=== PATIENT | male | born 1995 | race Caucasian/White ===

== ENCOUNTER 2019-12-16 17:07 | Observation (INO) | payer OTHER, SELFPAY ==
[2019-12-16 17:40] VITALS: BP 154/104; PULSE 126; PULSE 129; RESP 12; TEMP 37.3; O2SAT 98
--- NOTE | 2019-12-16 17:54 | ECG_ITS ---
Measurements Intervals [place] Rate: 129 P: 72 KS: 132 QRS: 77 QRSD: 94 T: 60 QT: 334 QTc: 489 Interpretive Statements SINUS TACHYCARDIA INCOMPLETE RIGHT BUNDLE BRANCH BLOCK MINIMAL Q WAVES- ANTEROLAT/INF LEADS NONSPECIFIC ST & T-WAVE ABNORMALITY- ANT/INF LEADS ABNORMAL ECG Electronically Signed On 12-16-2019 19:50:53 CDT by Stevie Morrison D.O.
[2019-12-16 18:12] LABS: Basophils Absolute Auto 0.03 K/mm3 (0.00-0.10); Basophils Percent Auto 0.4 % (0.0-1.0); Hematocrit 46.8 % (40.0-54.0); Hemoglobin 16.4 g/dL (14.0-18.0); Immature Granulocyte Absolute 0.03 K/mm3 (0.00-0.00); Immature Granulocyte Percent A 0.4 % (0.0-0.0); Lymphocytes Absolute Auto 1.13 K/mm3 (1.10-4.50); Lymphocytes Percent Auto 13.8 % (18.0-42.0); Mean Corpuscular Hemoglobin 29.2 pg (27.0-31.0); Mean Corpuscular Volume 83.3 fL (78.0-102.0); Mean Platelet Volume 10.3 fl (8.7-11.0); Monocytes Absolute Auto 0.46 K/mm3 (0.10-0.90); Monocytes Percent Auto 5.6 % (2.0-11.0); Neutrophils Absolute Auto 6.6 K/mm3 (1.7-7.2); Neutrophils Percent Auto 79.8 % (50.0-70.0); Platelet Count Result 238 K/mm3 (150-420); Red Blood Count 5.62 M/mm3 (4.70-6.10); Red Cell Distribution Width 11.9 % (11.6-14.4); White Blood Count 8.2 K/mm3 (4.8-10.8)
--- NOTE | 2019-12-16 18:26 | ED.GENADULT ---
HPI - General Adult General Chief complaint: Unspecified Stated complaint: Took pills History of Present Illness HPI narrative: This 24 y.o. has schizophrenia and depression. His mother states he was restless this AM, walking in and out of rooms in the house. Today he has also been much more more quiet and clammed up than usual.He kept his eyes closed when his mother conversed with him, which is unusual. Arpound 3:30 PM today, with repeated questioning of what was wrong, he told his mother he had taken 7 additional pills today, evidently with the intent of hurting himself. She states in the past month he has been erratically taking his medicine because he doesn't need to take them anymore. He did not cooperate with taking his meds in front of her. [Bottle count of meds indicate he has taken only one dose over the past 17 days]. He was in a psych hospital 07/2018 with depression and suicidal ideation. He has used recreational drugs in the past, but not recently. . Related Data Home Medications Medication Instructions Recorded Confirmed clonidine HCl 0.1 mg PO HS 05/20/19 12/16/19 risperidone 2 mg PO HS 05/20/19 12/16/19 sertraline 150 mg PO DAILY 05/20/19 12/16/19 rosuvastatin 5 mg PO DAILY 12/16/19 12/16/19 Allergies Allergy/AdvReac Type Severity Reaction Status Date / Time amoxicillin Allergy Rash Verified 05/20/19 21:58 Review of Systems Review of Systems: Narrative: Pt indicates with a subtle nod of his head. No verbal answers. Constitutional: Constitutional: Denies chills and Denies fever(s) Eyes: Eyes: Denies change in vision ENT: Denies dizziness and Denies sore throat Cardiovascular: Cardiovascular: Denies chest pain Respiratory: Respiratory: Denies dyspnea Gastrointestinal: Gastrointestinal: Denies abdominal pain, Reports diarrhea (did not go into detail), Denies nausea and Denies vomiting Genitourinary: Genitourinary: Denies dysuria Musculoskeletal: Musculoskeletal: Denies myalgias Integumentary/Breasts: Skin/Breast: Denies rash [facility] Social History Social History (Updated 12/16/19 @ 19:03 by Amrit Talamantes MD) Social History: Friend moved away 1 month ago. Has been staying home . Smoking status: Unknown if ever smoked Alcohol intake: unknown Substance use: unknown Gender identity (if verbalized by the patient): Male Exam Const: Other: Pt. walked in with his mother, head down, with normal flow of body movement. He did not answer questions but at one point whispered something to his mother. HENMT: Head: normal to inspection and atraumatic Face and sinus: normal facial exam Mouth: Yes Normal oral and palatal mucosa present and Yes other (upper front teeth are decayed at their bases. ) Eyes: General: appearance normal, both eyes and all related structures Pupils: Equal, round and reactive pupils present EOM: EOMs intact bilaterally Neck: Neck: no lymphadenopathy noted Thyroid: thyroid normal Chest: Chest palpation & inspection: normal inspection of the chest Resp: Effort & Inspection: normal respiratory effort, not labored and not tachypneic Auscultation: clear to auscultation bilaterally Cardio: Rate: regular rate and tachycardic Rhythm: regular rhythm GI: GI Palp: Yes Soft to palpation and No Tenderness to palpation present (GI) Back/Spine/Pelvis: Back: no CVA tenderness Skin: General skin exam: normal color Rashes: no rashes Other: No remarkable scars. No tattoos seen. No arm track salazar. Neuro: Other: Pt. does some requested actions, e.g. stand up, but not others pull your pants down, put your penis in the urinal and uriate . No words spoken. Extrem: General: no clubbing, cyanosis or edema Psych: Appearance: well kempt Affect: No Anxious affect present Attitude: cooperative Thought content: Yes other (unobtainable. ) Course Vital Signs Vital signs: Vital Signs Temperature 37.3 C 12/16/19 17:40 Pulse Rate 129 H 12/16/19 17:40
[2019-12-16 18:32] LABS: Alanine Aminotransferase 33 U/L (16-63); Albumin Level 4.7 g/dL (3.4-5.0); Alkaline Phosphatase 203 U/L (46-116); Anion Gap 14.1 mmol/L (7-16); Aspartate Amino Transferase 24 U/L (15-37); Bilirubin,Total 0.5 mg/dL (0.00-1.00); Blood Urea Nitrogen 6 mg/dL (7-18); Calcium 9.2 mg/dL (8.5-10.1); Carbon Dioxide 25 mmol/L (21-32); Chloride 104 mmol/L (98-108); Estimated CRCL calculation 96 ml/min; Estimated Glomerular Filt Rate > 60; Glucose 122 mg/dL (70-99); Osmolality Calculated 288 mOsm/kg (285-295); Potassium 3.1 mmol/L (3.5-5.1); Salicylate 0.3 mg/dL (2.8-20.0); Sodium 140 mmol/L (136-145); Total Protein 7.7 g/dL (6.4-8.2)
[2019-12-16 18:33] LABS: Thyroid Stimulating Hormone 1.66 uIU/mL (0.36-3.74)
[2019-12-16 18:34] LABS: Acetaminophen 0 ug/mL (10-30); Ethanol < 3 mg/dL (0-6)
--- NOTE | 2019-12-16 18:45 | PC.NURSE ---
RN CONTACTED POISON CONTROL AT THIS TIME.
--- NOTE | 2019-12-16 19:00 | PC.NURSE ---
MOTHER RETURNS TO ED WITH PTS MEDICATIONS. THERE ARE NO MISSING PRESCRIBED MEDICATIONS.
[2019-12-16] MEDS: SODIUM CHLORIDE 0.9% IV 1,000 ML 999 ML IV CONT (19:10)
[2019-12-16 19:13] LABS: Creatine Kinase 75 U/L (39-308); Magnesium 1.9 mg/dL (1.8-2.4)
[2019-12-16 19:16] LABS: Lactic Acid 2.3 mmol/L (0.4-2.0)
--- NOTE | 2019-12-16 19:25 | PC.NURSE ---
REFINERY TECHNICIAN CONTACTED EARL, CHARGE NURSE, TO INFORM HER OF PTS ANTICIPATED PLAN OF CARE. ERP STATES THAT PT WILL MOST LIKELY BE GOING UPSTAIRS AN OBSERVATION PT AND WILL NEED A BEDSIDE SAWMILL EQUIPMENT OPERATOR. EARL INFORMED TO GIVE HER AMPLE TIME TO SECURE A SITTER.
[2019-12-16] MEDS: MAGNESIUM SULF 2 GM/WATER 50ML 2 GM/50 ML BAG IVPB (19:39)
[2019-12-16] MEDS: SODIUM CHLORIDE 0.9% IV 500 ML 999 ML IV CONT (20:15)
[2019-12-16 20:40] VITALS: BP 142/86; PULSE 105; RESP 15; O2SAT 97
[2019-12-16 20:50] VITALS: BP 141/91; PULSE 102; RESP 16; TEMP 36.7; O2SAT 97
--- NOTE | 2019-12-16 20:51 | PC.NURSE ---
DURING TELEPHONE REPORT TO EARL BOWERS, SINGE MACHINE OPERATOR EXPLAINED THAT URINE SAMPLE STILL NEEDED TO BE COLLECTED ANSD SENT TO LAB. RN ALSO EXPLAINED THAT 20meq K WOULD NEED TO STOP TIME DOCUMENTED AND SECOND BAG STARTED.
--- NOTE | 2019-12-16 20:59 | PC.NURSE ---
POISON CONTROL CALLED RN TO RECEIVE UPDATE. LAB RESULTS PROVIDED AND INFORMATION REGARDING ADMISSION PROVIDED. POISON CONTROL QA SOFTWARE TEST ENGINEER TO CONTACT 2ND FLOOR MED-SURG FOR NEXT UPDATE.
--- NOTE | 2019-12-16 21:00 | ADMGEN ---
This patient, Luis Armando Harmon, was admitted to 2nd Floor Room 206-1. Patient oriented to hospital policies and general routines including ID bracelet, bed and alarms, visiting hours, pain management, procedures, bathroom and other care routines, personal items, smoking policy, room service/diet, and visiting hours. Information on how to activate the Rapid Response Team has been discussed. Patient are encouraged to report perceived risks to care and to ask questions if they do not understand what they are told or what they should do.
--- NOTE | 2019-12-16 21:00 | PC.NURSE ---
Patient settled in room/bed. VS taken. Assisted patient in finding tv channel he wanted and then cord taken from room. Patient non-verbal. Barely shakes/nods his head. No distress noted.
[2019-12-16] MEDS: cloNIDine HCL 0.1 MG TABLET PO (21:27)
[2019-12-16] MEDS: risperiDONE 1 MG TABLET 2 MG PO (21:27)
--- NOTE | 2019-12-16 22:20 | PC.NURSE ---
Patient appears to be sleeping by the rise and fall of his chest. Respirations even and unlabored. No distress noted.
--- NOTE | 2019-12-16 23:30 | PC.NURSE ---
Patient appears to be sleeping. No signs of distress are observed.
[2019-12-17] VITALS: BP 114/67; PULSE 76; PULSE 85; RESP 16; TEMP 36.3; O2SAT 98
--- NOTE | 2019-12-17 00:35 | PC.NURSE ---
Patient awakens to voice. No complaints or need for assistance at this time. Vital signs obtained,
--- NOTE | 2019-12-17 01:15 | PC.NURSE ---
Patient appears to be sleeping. No signs of distress are observed.
--- NOTE | 2019-12-17 02:13 | PC.NURSE ---
Patient in bed sleeping. No signs of pain or distress are observed.
[2019-12-17 02:14] VITALS: PULSE 56
--- NOTE | 2019-12-17 03:01 | PC.NURSE ---
Patient sleeping. No signs of distress are observed. Normal sinus rhythm to sinus desiree on tele with rate in the high 50s to low 60s
[2019-12-17 03:02] VITALS: BMI 20.1
[2019-12-17 03:03] VITALS: PULSE 56
--- NOTE | 2019-12-17 03:49 | PC.NURSE ---
Patient sleeping. No signs of distress are observed.
[2019-12-17 04:00] VITALS: BP 100/58; PULSE 63; PULSE 65; RESP 16; TEMP 36.2; O2SAT 99
[2019-12-17 05:23] LABS: Anion Gap 9.7 mmol/L (7-16); Blood Urea Nitrogen 6 mg/dL (7-18); Calcium 8.8 mg/dL (8.5-10.1); Carbon Dioxide 29 mmol/L (21-32); Chloride 110 mmol/L (98-108); Estimated CRCL calculation 124 ml/min; Estimated Glomerular Filt Rate > 60; Glucose 102 mg/dL (70-99); Magnesium 2.4 mg/dL (1.8-2.4); Osmolality Calculated 297 mOsm/kg (285-295); Potassium 3.7 mmol/L (3.5-5.1); Sodium 145 mmol/L (136-145)
--- NOTE | 2019-12-17 07:18 | ED.GENADULT ---
HPI - General Adult General Chief complaint: Unspecified Stated complaint: Took pills Related Data Home Medications Medication Instructions Recorded Confirmed clonidine HCl 0.1 mg PO HS 05/20/19 12/16/19 risperidone 2 mg PO HS 05/20/19 12/16/19 sertraline 150 mg PO DAILY 05/20/19 12/16/19 rosuvastatin 5 mg PO DAILY 12/16/19 12/16/19 Allergies Allergy/AdvReac Type Severity Reaction Status Date / Time amoxicillin Allergy Rash Verified 05/20/19 21:58 [facility] Social History Social History (Updated 12/16/19 @ 19:03 by Amrit Talamantes MD) Social History: Friend moved away 1 month ago. Has been staying home . Smoking status: Unknown if ever smoked Alcohol intake: unknown Substance use: unknown Gender identity (if verbalized by the patient): Male Course Vital Signs Vital signs: Vital Signs Temperature 37.3 C 12/16/19 17:40 Pulse Rate 129 H 12/16/19 17:40 Respiratory Rate 12 12/16/19 17:40 Blood Pressure 154/104 H 12/16/19 17:40 Pulse Oximetry 98 12/16/19 17:40 Temperature 36.2 C L 12/17/19 04:00 Pulse Rate 63 12/17/19 04:00 Respiratory Rate 16 12/17/19 04:00 Blood Pressure 100/58 L 12/17/19 04:00 Pulse Oximetry 99 12/17/19 04:00 Medical Decision Making Vital Signs Vital Signs: Vital Signs Temperature 37.3 C 12/16/19 17:40 Pulse Rate 129 H 12/16/19 17:40 Respiratory Rate 12 12/16/19 17:40 Blood Pressure 154/104 H 12/16/19 17:40 Pulse Oximetry 98 12/16/19 17:40 Temperature 36.2 C L 12/17/19 04:00 Pulse Rate 63 12/17/19 04:00 Respiratory Rate 16 12/17/19 04:00 Blood Pressure 100/58 L 12/17/19 04:00 Pulse Oximetry 99 12/17/19 04:00 Lab Data Result diagrams: 12/16/19 18:06 12/17/19 04:55 Labs: Lab Results 12/16/19 12/16/19 12/16/19 Range/Units 18:06 18:06 18:06 WBC 8.2 (4.8-10.8) K/mm3 RBC 5.62 (4.70-6.10) M/mm3 Hgb 16.4 (14.0-18.0) g/dL Hct 46.8 (40.0-54.0) % MCV 83.3 (78.0-102.0) fL MCH 29.2 (27.0-31.0) pg MCHC 35.0 (32.0-36.0) g/dL RDW 11.9 (11.6-14.4) % Plt Count 238 (150-420) K/mm3 MPV 10.3 (8.7-11.0) fl Immature Gran % (Auto) 0.4 H (0.0-0.0) % Neut % (Auto) 79.8 H (50.0-70.0) % Lymph % (Auto) 13.8 L (18.0-42.0) % Bureau % (Auto) 5.6 (2.0-11.0) % Eos % (Auto) 0.0 L (1.0-6.0) % Baso % (Auto) 0.4 (0.0-1.0) % Lymph # (Auto) 1.13 (1.10-4.50) K/mm3 Bureau # (Auto) 0.46 (0.10-0.90) K/mm3 Eos # (Auto) 0.00 L (0.02-0.50) K/mm3 Baso # (Auto) 0.03 (0.00-0.10) K/mm3 Abs Immat Gran (auto) 0.03 H (0.00-0.00) K/mm3 Absolute Neuts (auto) 6.6 (1.7-7.2) K/mm3 Absolute Nucleated RBC 0.00 (0.00-0.00) K/mm3 Nucleated RBC % 0.0 (0-0.0) % Sodium 140 (136-145) mmol/L Potassium 3.1 L (3.5-5.1) mmol/L Chloride 104 (98-108) mmol/L Carbon Dioxide 25 (21-32) mmol/L Anion Gap 14.1 (7-16) mmol/L BUN 6 L (7-18) mg/dL Creatinine 0.94 (0.70-1.30) mg/dL Estim Creat Clear Calc 96 ml/min Estimated GFR > 60 (59 - ) Glucose 122 H (70-99) mg/dL Calculated Osmolality 288 (285-295) mOsm/kg Lactic Acid (0.4-2.0) mmol/L Calcium 9.2 (8.5-10.1) mg/dL Magnesium (1.8-2.4) mg/dL Total Bilirubin 0.5 (0.00-1.00) mg/dL AST 24 (15-37) U/L ALT 33 (16-63) U/L Alkaline Phosphatase 203 H (46-116) U/L Total Creatine Kinase (39-308) U/L Total Protein 7.7 (6.4-8.2) g/dL Albumin 4.7 (3.4-5.0) g/dL TSH 1.66 (0.36-3.74) uIU/mL Salicylates 0.3 L (2.8-20.0) mg/dL Acetaminophen 0 L (10-30) ug/mL Ethyl Alcohol < 3 (0-6) mg/dL 12/16/19 12/16/19 Range/Units 18:06 18:06 WBC (4.8-10.8) K/mm3 RBC (4.70-6.10) M/mm3 Hgb (14.0-18.0) g/dL Hct (40.0-54.0) % MCV (78.0-102.0) fL MCH (27.0-31.0) pg MCHC (32.0-36.0) g/dL RDW (11.6-14.4) % Plt Count (150-420) K/mm3 MPV (8
--- NOTE | 2019-12-17 07:49 | PM.IMHP ---
H&P: HPI History of Present Illness Chief complaint: Took pills Narrative: Luis Armando Harmon is a 24 year old male admitted yesterday when his mother, Erin, brought him to the ER. She felt that he was not calm at home, pacing, and would sit down, that he could not make decisions, that he was restless, and was unable to focus. She stated this was unlike him. When asked if the patient had any stressful events in the last month or 2, His mother also informed me that Luis Armando was very close to a friend's father who recently . When I asked his mother if she is assisted him with medications and appointments, she stated he is 24 years old he should be able to handle his medications all on his own . I contacted [facility] counselors to complete an intake evaluation on the patient this morning. I did educate and inform his mother that due to his multiple diagnoses of serious mental health disorders, that he may need assistance with medication administration as well as maintaining good health for the rest of his life. Luis Armando has been living with his mother since February 2019 when he moved in with her. Luis Armando did tell the nursing staff that he liked living there and felt safe. Luis Armando has a history of ADHD, major depressive syndrome, and schizophrenia. Bowen was baseline also includes chronic mentally challenged symptoms since , he is at times nonverbal or very delayed in his responses to questions. He was in a [facility] 07/2018 with depression and suicidal ideation. He has used recreational drugs in the past, but not recently. I could find no evidence that Luis Armando took any recreational drugs or tried to overdose on any medications. His toxicity screen was completely negative as well as his Tylenol, Salicylates , ethyl alcohol screens. Luis Armando did admit to me that he occasionally would forget to take his medications at scheduled times. He denied that he wanted to hurt himself, denied that he was suicidal, and denied that he had suicidal thoughts. The patient's heart rate improved significantly from sinus tach with a heart rate of 120s, to sinus rhythm and the heart rate in the 60s after receiving 2 L of IV fluids. He was likely very dehydrated at home. he was also given potassium supplementation and his potassium normalized from 3.1 up to 3.7. He was given magnesium supplementation and his most recent magnesium was 2.4. His alkaline phosphatase also improved from 203 to 163, after the IV fluids. TSH wnl at 1.66. Luis Armando had been seen a counselor or psychologist in the past, but his mother stated that he had been released from those visits since he was doing so well. I have advised to the patient and his mother that he reschedule and continue to see a counselor and/or psychologist every 2 weeks or at least every month for his lifetime to keep his mental health issues controlled and reduce hospitalizations. Luis Armando has been seeing Dr. Brittany Nation, a psychiatrist affiliated with [facility], and she has been ordering his medications. I have advised him to follow-up with an appointment to see his psychiatrist as well as his primary care physician in 1-2 weeks. The patient was safely able to ambulate throughout his hospital room, to his bathroom, as well as out into the hallway at least 50 ft. No sign or symptoms of tardive dyskinesia concerns, neurological checks have been with in normal limits, and no hallucinations or psychosis noted. Review of Systems Review of Systems: All systems reviewed & are unremarkable except as noted in HPI and below Constitutional: Constitutional: Reports as per HPI, Denies chills and Denies fever(s) Eyes: Eyes: Reports as per HPI and Denies change in vision ENT: Reports as per HPI, Reports Normal hearing present, Denies dizziness and Denies sore throat Cardiovascular: Cardiovascular: Reports as per HPI, Denies chest pain and Denies dyspnea Respiratory: Respiratory: Reports as per HPI, Denies cough,
[2019-12-17 08:00] VITALS: BP 127/74; PULSE 68; RESP 18; TEMP 36.2; O2SAT 98
[2019-12-17 08:19] LABS: Alanine Aminotransferase 26 U/L (16-63); Albumin Level 3.7 g/dL (3.4-5.0); Alkaline Phosphatase 163 U/L (46-116); Aspartate Amino Transferase 18 U/L (15-37); Bilirubin Direct 0.2 mg/dL (0-0.2); Bilirubin,Total 0.8 mg/dL (0.00-1.00)
--- NOTE | 2019-12-17 09:00 | PC.NURSE ---
darrel colón called and waiting for call back stefanie
[2019-12-17 09:08] LABS: Amphetamine Screen Urine Negative (Negative); Barbiturate Screen Urine Negative (Negative); Benzodiazepines Screen Urine Negative (Negative); Cannabinoid Screen Urine Negative (Negative); Cocaine Screen Urine Negative (Negative); Methadone Screen Urine Negative (Negative); Opiate Screen Urine Negative (Negative); Phencyclidine Screen Urine Negative (Negative)
[2019-12-17] MEDS: ROSUVASTATIN 5 MG TABLET PO (09:37)
[2019-12-17] MEDS: SERTRALINE HCL 50 MG TABLET 150 MG PO (09:37)
[2019-12-17 09:55] LABS: Salicylate < 0.3 mg/dL (2.8-20.0)
[2019-12-17 09:56] LABS: Acetaminophen 0 ug/mL (10-30); Ethanol < 3 mg/dL (0-6)
[2019-12-17 12:00] VITALS: BP 122/66; PULSE 86; RESP 18; TEMP 36.4; O2SAT 98
[2019-12-17] MEDS: PANTOPRAZOLE 40 MG TABLET PO (13:03)
[2019-12-17] MEDS: CALCIUM CARBONATE (TUMS) 500 MG (200 MG ELEMENTAL) PO (13:05)
[2019-12-17] MEDS: ACETAMINOPHEN 500 MG TABLET 1000 MG PO (13:06)
--- NOTE | 2019-12-17 13:45 | PM.DS ---
DS: Discharge Diagnosis Discharge Diagnosis (1) Schizophrenia: Code(s): F20.9 - Schizophrenia, unspecified Status: Acute Assessment and Plan: inform his mother that due to his multiple diagnoses of serious mental health disorders, that he may need assistance with medication administration as well as maintaining good health for the rest of his life. history of ADHD, major depressive syndrome, and schizophrenia. TSH wnl at 1.66. continued clonidine, risperidone, sertraline dosing. seeing Dr. Brittany Nation, a psychiatrist affiliated with [facility], and she has been ordering his medications. advised him to follow-up with an appointment to see his psychiatrist as well as his primary care physician in 1-2 weeks. No sign or symptoms of tardive dyskinesia concerns, neurological checks have been with in normal limits, and no hallucinations or psychosis noted. Rehydrate patient, monitor for patient to adequately eat and drink fluids, monitor for patient to take his medications as scheduled discharge patient if he is communicating with others and able to safely ambulate, as well as is not a suicidal risk to himself or dangerous risk to others. (2) Depression: Code(s): F32.9 - Major depressive disorder, single episode, unspecified Status: Acute Assessment and Plan: he may need assistance with medication administration as well as maintaining good health for the rest of his life. history of ADHD, major depressive syndrome, and schizophrenia. Bowen heck baseline also includes chronic mentally challenged symptoms since , he is at times nonverbal or very delayed in his responses to questions. continued clonidine, risperidone, sertraline dosing. I could find no evidence that Luis Armando took any recreational drugs or tried to overdose on any medications. toxicity screen was completely negative as well as his Tylenol, Salicylates , ethyl alcohol screens. advised him to follow-up with an appointment to see his psychiatrist as well as his primary care physician in 1-2 weeks (3) Drug taken at lower dose than recommended: Code(s): Z91.14 - Patient's other noncompliance with medication regimen Status: Acute Assessment and Plan: See ED note. when pills counted, patient had not been taking his [facility] medications at home for the last 2-3 weeks. patient had any stressful events in the last month or 2, His mother also informed me that Luis Armando was very close to a friend's father who recently . contacted [facility] counselors to complete an intake evaluation on the patient this morning. inform his mother that due to his multiple diagnoses of serious mental health disorders, that he may need assistance with medication administration as well as maintaining good health for the rest of his life. history of ADHD, major depressive syndrome, and schizophrenia. baseline also includes chronic mentally challenged symptoms since , he is at times nonverbal or very delayed in his responses to questions. continued clonidine, risperidone, sertraline dosing. toxicity screen was completely negative as well as his Tylenol, Salicylates , ethyl alcohol screens. advised to the patient and his mother that he reschedule and continue to see a counselor and/or psychologist every 2 weeks or at least every month for his lifetime seeing Dr. Brittany Nation, a psychiatrist affiliated with [facility], and she has been ordering his medications. advised him to follow-up with an appointment to see his psychiatrist as well as his primary care physician in 1-2 weeks. No sign or symptoms of tardive dyskinesia concerns, neurological checks have been with in normal limits, and no hallucinations or psychosis noted. Rehydrate patient, monitor for patient to adequately eat and drink fluids, monitor for patient to take his medications as scheduled discharge patient if he is communicating with others and able to safely ambulate, as well
== END 2019-12-17 14:55 | disposition home or self-care (01) ==
LOC: CHSED 17:10 → CHS2ND 20:30
PROVIDERS: Nurse Practitioner; Admitting Provider Family Medicine; Emergency Provider Family Medicine; PCP Family Medicine; Visit Provider Family Medicine
DX: F20.9 Schizophrenia, unspecified (principal); F32.9 Major depressive disorder, single episode, unspecified; R00.0 Tachycardia, unspecified; F90.9 Attention-deficit hyperactivity disorder, unspecified type; Z91.14 Patient's other noncompliance with medication regimen
CPT/HCPCS: 36415; 80048; 80053; 80076; 80307; 82550; 83605; 83735; 84443; 85025; 93005; 96365; 96368; 96375; 99283; 99285; A9270; G0378; G0379; J2060; J3475; J3480; J7030; J7040

== ENCOUNTER 2019-12-28 23:42 | Emergency (ER) | payer OTHER, SELFPAY ==
[2019-12-28 23:45] VITALS: BP 130/82; PULSE 72; RESP 22; TEMP 37.1; O2SAT 98
--- NOTE | 2019-12-28 23:46 | ED.GENADULT ---
HPI - General Adult General Chief complaint: Abdominal Pain Stated complaint: phsyc Time Seen by Provider: 12/28/19 23:44 Source: patient Mode of arrival: ambulatory Limitations: other (Schitzophrenia, ADHD, possible other mood disorder) History of Present Illness HPI narrative: Luis Armando is a 24M with a PMH of schitzophrenia, ADHD, and high cholesterol that presented to the ED with his mother for concerns of abdominal pain, nausea and diarrhea as well as acting different. He reportedly just came back from a psychiatric facility on Thursday and has had some belly pain. Today he had decreased appetite and only ate some broth and tortellini soup. He then started reporting some nausea and epigastric pain to his mother. He later reported 3 episodes of non-bloody diarrhea to me. Further history could not be gathered as he would not stop walking around the department and trying to smear various things on the wall (hand mechanical specialist, soda, gloves, etc). He continually tried to pace back and fourth. Related Data Home Medications Medication Instructions Recorded Confirmed clonidine HCl 0.1 mg PO HS 05/20/19 12/29/19 risperidone 2 mg PO HS 05/20/19 12/29/19 sertraline 150 mg PO DAILY 05/20/19 12/29/19 rosuvastatin 5 mg PO HS 12/16/19 12/29/19 Allergies Allergy/AdvReac Type Severity Reaction Status Date / Time amoxicillin Allergy Rash Verified 05/20/19 21:58 Review of Systems Review of Systems: ROS unobtainable: Yes unobtainable due to mental status [facility] Past Medical History Medical History Depression Social History Social History Social History: Friend moved away 1 month ago. Has been staying home . Smoking status: Unknown if ever smoked Alcohol intake: unknown Substance use: unknown Gender identity (if verbalized by the patient): Male Sexual Orientation (if Verbalized by the Patient): Straight or Heterosexual Exam Const: General: no acute distress and alert Other: Will not answer orientation questions. No signs of distress. HENMT: Other: Normocephalic, atraumatic Eyes: Conjunctivae: conjunctivae normal Pupils: Equal, round and reactive pupils present Neck: Neck: normal visual inspection Chest: Chest palpation & inspection: normal inspection of the chest Resp: Effort & Inspection: normal respiratory effort Other: No cough, tachypnea, or increased WOB Cardio: Rate: regular rate Rhythm: regular rhythm Heart sounds: no murmurs GI: GI Palp: Yes Soft to palpation and No Tenderness to palpation present (GI) Skin: General skin exam: normal color Rashes: no rashes Neuro: General: patient oriented x3 and moves all extremities Extrem: General: normal to inspection Psych: Appearance: disheveled Mental Status: mental status grossly abnormal Affect: Anxious affect present Attitude: not cooperative Course Course Emergency Course: Luis Armando was seen and evaluated. labs were ordered as below. Further history reveals that he is out of his risperdone. I asked him if he would like something similar and he said yes so Zyprexa was ordered. After the zyprexa he did sit more and seem more calm. Labs showed slight leukocytosis and mild hypokalemia. These along with his physical exam are consistent with viral gastroenteritits. We discussed the importance of adequate hydration and he was discharged. Medical Decision Making Lab Data Result diagrams: 12/28/19 23:51 12/28/19 23:51 Labs: Lab Results 12/28/19 12/28/19 Range/Units 23:51 23:51 WBC 12.4 H (4.8-10.8) K/mm3 RBC 5.82 (4.70-6.10) M/mm3 Hgb 16.8 (14.0-18.0) g/dL Hct 48.8 (40.0-54.0) % MCV 83.8 (78.0-102.0) fL MCH 28.9 (27.0-31.0) pg MCHC 34.4 (32.0-36.0) g/dL RDW 12.1 (11.6-14.4) % Plt Count 348 (150-420) K/mm3 MPV 10.2 (8.7-11.0) fl Immature Gran % (Auto) 0.3 H (0.
[2019-12-28] MEDS: SODIUM CHLORIDE 0.9% IV 1,000 ML 500 ML IV CONT (23:58)
--- NOTE | 2019-12-29 | PC.NURSE ---
gave mom & patient a soda patient threw soda on floor. patient appears autistic, giving 100ML bolus every 15min
[2019-12-29 00:05] LABS: Basophils Absolute Auto 0.07 K/mm3 (0.00-0.10); Basophils Percent Auto 0.6 % (0.0-1.0); Eosinophils Absolute Auto 0.07 K/mm3 (0.02-0.50); Eosinophils Percent Auto 0.6 % (1.0-6.0); Hematocrit 48.8 % (40.0-54.0); Hemoglobin 16.8 g/dL (14.0-18.0); Immature Granulocyte Absolute 0.04 K/mm3 (0.00-0.00); Immature Granulocyte Percent A 0.3 % (0.0-0.0); Lymphocytes Absolute Auto 3.39 K/mm3 (1.10-4.50); Lymphocytes Percent Auto 27.4 % (18.0-42.0); Mean Corpuscular HGB Conc 34.4 g/dL (32.0-36.0); Mean Corpuscular Hemoglobin 28.9 pg (27.0-31.0); Mean Corpuscular Volume 83.8 fL (78.0-102.0); Mean Platelet Volume 10.2 fl (8.7-11.0); Monocytes Percent Auto 7.3 % (2.0-11.0); Neutrophils Absolute Auto 7.9 K/mm3 (1.7-7.2); Neutrophils Percent Auto 63.8 % (50.0-70.0); Platelet Count Result 348 K/mm3 (150-420); Red Blood Count 5.82 M/mm3 (4.70-6.10); Red Cell Distribution Width 12.1 % (11.6-14.4); White Blood Count 12.4 K/mm3 (4.8-10.8)
[2019-12-29 00:31] LABS: Alanine Aminotransferase 35 U/L (16-63); Albumin Level 4.8 g/dL (3.4-5.0); Alkaline Phosphatase 173 U/L (46-116); Anion Gap 14.2 mmol/L (7-16); Aspartate Amino Transferase 27 U/L (15-37); Bilirubin,Total 0.7 mg/dL (0.00-1.00); Blood Urea Nitrogen 11 mg/dL (7-18); Calcium 8.9 mg/dL (8.5-10.1); Carbon Dioxide 26 mmol/L (21-32); Chloride 100 mmol/L (98-108); Estimated Glomerular Filt Rate > 60; Glucose 119 mg/dL (70-99); Osmolality Calculated 284 mOsm/kg (285-295); Potassium 3.2 mmol/L (3.5-5.1); Sodium 137 mmol/L (136-145); Thyroid Stimulating Hormone 2.57 uIU/mL (0.36-3.74); Total Protein 7.7 g/dL (6.4-8.2)
[2019-12-29 00:34] LABS: Salicylate < 0.3 mg/dL (2.8-20.0)
[2019-12-29 00:35] LABS: Acetaminophen 0 ug/mL (10-30); Ethanol < 3 mg/dL (0-6)
--- NOTE | 2019-12-29 00:41 | PC.NURSE ---
manual bolus complete, total 500ml given. with patient reviewing labs
[2019-12-29 00:50] VITALS: BP 130/70; PULSE 80; RESP 18; TEMP 36.6; O2SAT 98
--- NOTE | 2019-12-29 00:52 | PC.NURSE ---
unable to collect urine
--- NOTE | 2020-01-26 06:03 | ED.GENADULT ---
HPI - General Adult General Chief complaint: Abdominal Pain Stated complaint: phsyc Time Seen by Provider: 12/28/19 23:44 Source: patient Mode of arrival: EMS Limitations: no limitations and other (Schitzophrenia, ADHD, possible other mood disorder) History of Present Illness HPI narrative: Luis Armando is a 24M with a PMH of schitzophrenia, ADHD, and high cholesterol that presented to the ED by EMS after he was found walking in the the middle of the street. He was at an inpatient psych facility for 5 days last month and had been acting himself. However, yesterday he started refusing to eat and started to become more agitated. Early this morning he left the house barefoot and was found 2 hours later in the middle of the street. He is virtually nonverbal and will not answer questions. Related Data Home Medications Medication Instructions Recorded Confirmed clonidine HCl 0.1 mg PO HS 05/20/19 12/29/19 risperidone 2 mg PO HS 05/20/19 12/29/19 sertraline 150 mg PO DAILY 05/20/19 12/29/19 rosuvastatin 5 mg PO HS 12/16/19 12/29/19 Allergies Allergy/AdvReac Type Severity Reaction Status Date / Time amoxicillin Allergy Rash Verified 05/20/19 21:58 Review of Systems Review of Systems: ROS unobtainable: Yes unobtainable due to mental status [facility] Past Medical History Medical History Depression Social History Social History Social History: Friend moved away 1 month ago. Has been staying home . Smoking status: Unknown if ever smoked Alcohol intake: unknown Substance use: unknown Gender identity (if verbalized by the patient): Male Exam Const: General: no acute distress and confusion HENMT: Head: normal to inspection Other: normocephalic, atraumatic Eyes: Conjunctivae: conjunctivae normal Pupils: Equal, round and reactive pupils present Neck: Neck: normal visual inspection Chest: Chest palpation & inspection: normal inspection of the chest Resp: Effort & Inspection: normal respiratory effort, not labored and not tachypneic Auscultation: clear to auscultation bilaterally Cardio: Rate: regular rate Rhythm: regular rhythm Heart sounds: no murmurs GI: GI Palp: Yes Soft to palpation, No Tenderness to palpation present (GI) and No Guarding due to palpation present (GI) Back/Spine/Pelvis: Back: no CVA tenderness Skin: General skin exam: normal color Rashes: no rashes Wounds: no wounds Neuro: General: moves all extremities Other: Virtually non verbal but when asked does this hurt he will reply no Extrem: General: normal to inspection Psych: Appearance: disheveled Affect: Anxious affect present Thought content: Yes other (non-verbal ) Course Course Emergency Course: Luis Armando was seen and evaluated. As soon as he came of Vital Signs Vital signs: Vital Signs Temperature 98.7 F 12/28/19 23:45 Pulse Rate 72 12/28/19 23:45 Respiratory Rate 22 H 12/28/19 23:45 Blood Pressure 130/82 12/28/19 23:45 Pulse Oximetry 98 12/28/19 23:45 Temperature 97.8 F 12/29/19 00:50 Pulse Rate 80 12/29/19 00:50 Respiratory Rate 18 12/29/19 00:50 Blood Pressure 130/70 12/29/19 00:50 Pulse Oximetry 98 12/29/19 00:50 Medical Decision Making Vital Signs Vital Signs: Vital Signs Temperature 98.7 F 12/28/19 23:45 Pulse Rate 72 12/28/19 23:45 Respiratory Rate 22 H 12/28/19 23:45 Blood Pressure 130/82 12/28/19 23:45 Pulse Oximetry 98 12/28/19 23:45 Temperature 97.8 F 12/29/19 00:50 Pulse Rate 80 12/29/19 00:50 Respiratory Rate 18 12/29/19 00:50 Blood Pressure 130/70 12/29/19 00:50 Pulse Oximetry 98 12/29/19 00:50 Lab Data Result diagrams: 12/28/19 23:51 12/28/19 23:51 Labs: Lab Results 12/28/19 12/28/19 Range/Units 23:51 23:51 WBC 12.4 H (4.8-10.8) K/mm3 RBC 5.82 (4.70-6.10) M/mm3
== END 2019-12-29 00:51 | disposition home or self-care (01) ==
PROVIDERS: Emergency Provider Family Medicine; PCP Family Medicine
DX: A08.4 Viral intestinal infection, unspecified (principal)
CPT/HCPCS: 36415; 80053; 80307; 84443; 85025; 96360; 99283; A9270; J7030

== ENCOUNTER 2020-01-26 05:59 | Emergency (ER) | payer OTHER, SELFPAY ==
[2020-01-26 06:00] VITALS: BP 146/81; PULSE 102; RESP 20; TEMP 36.6; O2SAT 99
--- NOTE | 2020-01-26 06:16 | ED.GENADULT ---
HPI - General Adult General Chief complaint: Psychiatric Symptoms Stated complaint: ambulance Time Seen by Provider: 01/26/20 06:01 Source: patient Mode of arrival: EMS Limitations: no limitations History of Present Illness HPI narrative: Luis Armando is a 24M with a PMH of schitzophrenia, ADHD, and high cholesterol that presented to the ED by EMS after he was found walking in the the middle of the street. He was at an inpatient psych facility for 5 days last month and had been acting himself. However, yesterday he started refusing to eat and started to become more agitated. Early this morning he left the house barefoot and was found 2 hours later in the middle of the street. He is virtually nonverbal and will not answer questions. Related Data Home Medications Medication Instructions Recorded Confirmed clonidine HCl 0.1 mg PO HS 05/20/19 01/26/20 risperidone 2 mg PO HS 05/20/19 01/26/20 sertraline 150 mg PO DAILY 05/20/19 01/26/20 rosuvastatin 5 mg PO HS 12/16/19 01/26/20 Allergies Allergy/AdvReac Type Severity Reaction Status Date / Time amoxicillin Allergy Rash Verified 05/20/19 21:58 Review of Systems Review of Systems: ROS unobtainable: Yes unobtainable due to mental status [facility] Social History Social History Social History: Friend moved away 1 month ago. Has been staying home . Smoking status: Unknown if ever smoked Alcohol intake: unknown Substance use: unknown Gender identity (if verbalized by the patient): Male Exam Const: General: no acute distress and confusion HENMT: Head: normal to inspection Other: normocephalic, atraumatic Eyes: Conjunctivae: conjunctivae normal Pupils: Equal, round and reactive pupils present EOM: EOMs intact bilaterally Neck: Neck: normal visual inspection Chest: Chest palpation & inspection: normal inspection of the chest Resp: Effort & Inspection: normal respiratory effort, not labored and not tachypneic Auscultation: clear to auscultation bilaterally Cardio: Rate: regular rate Rhythm: regular rhythm Heart sounds: no murmurs GI: GI Palp: Yes Soft to palpation, No Tenderness to palpation present (GI) and No Guarding due to palpation present (GI) Skin: General skin exam: normal color Rashes: no rashes Neuro: General: moves all extremities Other: Virtually non-verbal Extrem: General: normal to inspection Psych: Appearance: disheveled Affect: Anxious affect present Other: Virtually non-verbal but may answer some questions with a yes or no. Course Course Emergency Course: Luis Armando was seen and evaluated. As soon as he came of the EMS cot he tried to walk out of the room and had to be re-directed. The psych eval orders were placed. Care was transferred to Dr. Ewing at 0707. Vital Signs Vital signs: Vital Signs Temperature 98 F 01/26/20 06:00 Pulse Rate 102 H 01/26/20 06:00 Respiratory Rate 20 01/26/20 06:00 Blood Pressure 146/81 H 01/26/20 06:00 Pulse Oximetry 99 01/26/20 06:00 Temperature 98 F 01/26/20 06:00 Pulse Rate 102 H 01/26/20 06:00 Respiratory Rate 20 01/26/20 06:00 Blood Pressure 146/81 H 01/26/20 06:00 Pulse Oximetry 99 01/26/20 06:00 Medical Decision Making Vital Signs Vital Signs: Vital Signs Temperature 98 F 01/26/20 06:00 Pulse Rate 102 H 01/26/20 06:00 Respiratory Rate 20 01/26/20 06:00 Blood Pressure 146/81 H 01/26/20 06:00 Pulse Oximetry 99 01/26/20 06:00 Temperature 98 F 01/26/20 06:00 Pulse Rate 102 H 01/26/20 06:00 Respiratory Rate 20 01/26/20 06:00 Blood Pressure 146/81 H 01/26/20 06:00 Pulse Oximetry 99 01/26/20 06:00 Discharge Plan Discharge Prescriptions: No Action clonidine HCl 0.1 mg tablet 0.1 mg PO HS RF: 0 sertraline 100 mg tablet 150 mg PO DAILY RF: 0 risperidone 2 mg tablet 2 mg PO HS RF: 0 rosuvastatin 5 mg tablet 5 mg PO HS RF: 0
[2020-01-26 06:35] LABS: Basophils Absolute Auto 0.02 K/mm3 (0.00-0.10); Basophils Percent Auto 0.2 % (0.0-1.0); Eosinophils Absolute Auto 0.01 K/mm3 (0.02-0.50); Eosinophils Percent Auto 0.1 % (1.0-6.0); Hematocrit 47.5 % (40.0-54.0); Hemoglobin 16.1 g/dL (14.0-18.0); Immature Granulocyte Absolute 0.04 K/mm3 (0.00-0.00); Immature Granulocyte Percent A 0.5 % (0.0-0.0); Lymphocytes Absolute Auto 1.96 K/mm3 (1.10-4.50); Lymphocytes Percent Auto 22.5 % (18.0-42.0); Mean Corpuscular HGB Conc 33.9 g/dL (32.0-36.0); Mean Corpuscular Hemoglobin 28.6 pg (27.0-31.0); Mean Corpuscular Volume 84.5 fL (78.0-102.0); Mean Platelet Volume 9.9 fl (8.7-11.0); Monocytes Absolute Auto 0.66 K/mm3 (0.10-0.90); Monocytes Percent Auto 7.6 % (2.0-11.0); Neutrophils Percent Auto 69.1 % (50.0-70.0); Platelet Count Result 211 K/mm3 (150-420); Red Blood Count 5.62 M/mm3 (4.70-6.10); Red Cell Distribution Width 12.3 % (11.6-14.4); White Blood Count 8.7 K/mm3 (4.8-10.8)
[2020-01-26 07:01] LABS: Alanine Aminotransferase 30 U/L (16-63); Alkaline Phosphatase 210 U/L (46-116); Anion Gap 10 mmol/L (8-16); Aspartate Amino Transferase 26 U/L (15-37); Bilirubin,Total 0.8 mg/dL (0.00-1.00); Blood Urea Nitrogen 10 mg/dL (7-18); Calcium 9.5 mg/dL (8.5-10.1); Carbon Dioxide 26 mmol/L (21-32); Chloride 105 mmol/L (98-108); Estimated CRCL calculation 93 ml/min; Estimated Glomerular Filt Rate > 60; Ethanol < 3 mg/dL (0-6); Glucose 103 mg/dL (70-99); Osmolality Calculated 291 mOsm/kg (285-295); Potassium 3.1 mmol/L (3.5-5.1); Sodium 141 mmol/L (136-145); Thyroid Stimulating Hormone 2.19 uIU/mL (0.36-3.74); Total Protein 7.5 g/dL (6.4-8.2)
--- NOTE | 2020-01-26 07:06 | PC.NURSE ---
Call placed to [facility] for eval. Awaiting call back from moody counselor.
[2020-01-26 08:07] LABS: Amphetamine Screen Urine Negative (Negative); Barbiturate Screen Urine Negative (Negative); Benzodiazepines Screen Urine Negative (Negative); Cannabinoid Screen Urine Negative (Negative); Cocaine Screen Urine Negative (Negative); Methadone Screen Urine Negative (Negative); Opiate Screen Urine Negative (Negative); Phencyclidine Screen Urine Negative (Negative)
--- NOTE | 2020-01-26 08:12 | ECG_ITS ---
Measurements Intervals [place] Rate: 77 P: 44 WV: 131 QRS: 71 QRSD: 96 T: 24 QT: 368 QTc: 418 Interpretive Statements SINUS RHYTHM MINIMAL Q WAVES- ANTEROLAT/INF LEADS BORDERLINE ECG Electronically Signed On 01-26-2020 12:27:06 CDT by Stevie Morrison D.O.
[2020-01-26] MEDS: POTASSIUM CHLORIDE 20 MEQ TABLET 40 MEQ PO (08:18)
--- NOTE | 2020-01-26 09:03 | PC.NURSE ---
pt mother at bedside. pt resting quietly. watching TV. awaiting [facility] staff to arrive.
--- NOTE | 2020-01-26 09:27 | PC.NURSE ---
pt amb to bathroom. amb steadily. voided without difficulty. [facility] staff called and will be en route in about 1 hour
--- NOTE | 2020-01-26 09:52 | PC.NURSE ---
mother stepped out of room to make phone calls. sprite offered to pt.
--- NOTE | 2020-01-26 11:17 | PC.NURSE ---
[facility] staff at bedside with pt.
[2020-01-26 12:26] VITALS: BP 145/87; PULSE 112; O2SAT 98
[2020-01-26 17:00] VITALS: RESP 16; O2SAT 99
--- NOTE | 2020-01-26 17:15 | PC.NURSE ---
Pt to room 211 on second floor as er hold while awaiting bed placement. Report to Miri sonw
--- NOTE | 2020-01-26 17:32 | PC.NURSE ---
1720 pt arrives on unit, charge nurse will sit with him until sitter arrives
--- NOTE | 2020-01-26 17:48 | PC.NURSE ---
Patient sitting up in bed. Call light and supper tray within reach. Answers questions by shaking head yes/no. No sign of agitation or attempt to get up. Will continue to monitor. BP 143/100, pulse 97, resp 16, spo2 is 97% on room air.
--- NOTE | 2020-01-26 18:51 | PC.NURSE ---
Patient sitting quietly in bed. Will sit up when someone enters room then sits back. Call light and over the bed table within reach. Patient only ate fruit cup for supper. No outward signs of anxiety observed. Will make eye contact when spoken to.
--- NOTE | 2020-01-26 19:07 | PC.NURSE ---
pt resting in bed, no s/sx of disterss, sitter outside doorway
--- NOTE | 2020-01-26 21:38 | PC.NURSE ---
pt has wet himself and his bed, given new gown, brief and socks, pt is up pacing room
--- NOTE | 2020-01-26 22:13 | PC.NURSE ---
pt is back to sitting in bed, charge nurse acting as sitter for now, va has left for the night, pt has been pacing occasionally but then returns to bed
[2020-01-27] VITALS: BP 137/91; PULSE 85; RESP 18; TEMP 36.2; O2SAT 97
--- NOTE | 2020-01-27 00:47 | PC.NURSE ---
Patient getting in and out of bed and pacing in his room. He will not keep cloths on. Sitter present.
--- NOTE | 2020-01-27 01:19 | PC.NURSE ---
Notified Dr. Ewing of pt's restless behavior. New orders received and noted.
--- NOTE | 2020-01-27 01:46 | PC.NURSE ---
Notified Dr. Ewing of pt throwing the medication on the floor; New orders received and noted.
--- NOTE | 2020-01-27 01:46 | PC.NURSE ---
Patient very agitated. Patient not listening to the sitter or nurses. Patient aggressively wandering halls, two nurses required to get patient to go back in room. Attempted to give patient PO ativan but patient threw it on the floor.
--- NOTE | 2020-01-27 02:34 | PC.NURSE ---
Patient appears to be sleeping at this time. No signs of distress are observed. Sitter remains at bedside.
--- NOTE | 2020-01-27 06:16 | PC.NURSE ---
Patient sleeping, no signs of distress are observed. Sitter is present.
--- NOTE | 2020-01-27 07:26 | PC.NURSE ---
Report recieved on patient, this nurse took over patient care. Dr Ewing called at [phone] and clarified patient only tested for covid r/t possible facility placement and requirements. Patient moved from Isolation room 211 to patient room 207 next to nurses station. Patient resting quietly with TV on, Patient put gown back on by himself. Patient thirsty and given water. Patient non-verbal but does answer yes an no questions with a nod or shake of his head. Will continue to closely monitor patient with a sitter.
--- NOTE | 2020-01-27 07:43 | PC.NURSE ---
Patient up ambulated to bathroom by himself, gait steady. Patient refusing VS at this time. will continue to monitor patient.
--- NOTE | 2020-01-27 08:42 | PC.NURSE ---
Patient up to chair for breakfast, patient ate 30% of meal. Sausage and fruit cup eaten. No signs of agitation.
--- NOTE | 2020-01-27 10:16 | PC.NURSE ---
[facility] called for a possible intake report on this patient. Spoke with Bryce, he will be calling back if able to admit patient. Patient sitting up in chair, appearing anxious. will continue to monitor.
[2020-01-27] MEDS: SERTRALINE HCL 50 MG TABLET 150 MG PO (10:35)
[2020-01-27] MEDS: cloNIDine HCL 0.1 MG TABLET PO (10:35)
--- NOTE | 2020-01-27 10:56 | PC.NURSE ---
[facility] called with bed placement. Spoke with Bryce again for updated report. [facility] refused to take patient to accepting facility in [place]. [facility] called awaiting a call back.
--- NOTE | 2020-01-27 10:57 | ED.PSYCH ---
HPI - Psych General Chief Complaint: Psychiatric Symptoms Stated Complaint: ambulance Time Seen by Provider: 01/26/20 06:01 Source: patient Mode of arrival: EMS Related Data Home Medications Medication Instructions Recorded Confirmed clonidine HCl 0.1 mg PO HS 05/20/19 01/26/20 risperidone 2 mg PO HS 05/20/19 01/26/20 sertraline 150 mg PO DAILY 05/20/19 01/26/20 rosuvastatin 5 mg PO HS 12/16/19 01/26/20 Allergies Allergy/AdvReac Type Severity Reaction Status Date / Time amoxicillin Allergy Rash Verified 05/20/19 21:58 [facility] Social History Social History Social History: Friend moved away 1 month ago. Has been staying home . Smoking status: Unknown if ever smoked Alcohol intake: unknown Substance use: unknown Gender identity (if verbalized by the patient): Male Course Vital Signs Vital signs: Vital Signs Temperature 98 F 01/26/20 06:00 Pulse Rate 102 H 01/26/20 06:00 Respiratory Rate 20 01/26/20 06:00 Blood Pressure 146/81 H 01/26/20 06:00 Pulse Oximetry 99 01/26/20 06:00 Temperature 97.1 F L 01/27/20 00:00 Pulse Rate 85 01/27/20 00:00 Respiratory Rate 18 01/27/20 00:00 Blood Pressure 137/91 H 01/27/20 00:00 Pulse Oximetry 97 01/27/20 00:00 Transfer Transfered to: Other ([facility], [place], [place] MDM - Psych Lab Data Result diagrams: 01/26/20 06:28 01/26/20 06:28 Labs: Lab Results 01/26/20 01/26/20 01/26/20 Range/Units 06:28 06:28 06:28 WBC 8.7 (4.8-10.8) K/mm3 RBC 5.62 (4.70-6.10) M/mm3 Hgb 16.1 (14.0-18.0) g/dL Hct 47.5 (40.0-54.0) % MCV 84.5 (78.0-102.0) fL MCH 28.6 (27.0-31.0) pg MCHC 33.9 (32.0-36.0) g/dL RDW 12.3 (11.6-14.4) % Plt Count 211 (150-420) K/mm3 MPV 9.9 (8.7-11.0) fl Immature Gran % (Auto) 0.5 H (0.0-0.0) % Neut % (Auto) 69.1 (50.0-70.0) % Lymph % (Auto) 22.5 (18.0-42.0) % [place] % (Auto) 7.6 (2.0-11.0) % Eos % (Auto) 0.1 L (1.0-6.0) % Baso % (Auto) 0.2 (0.0-1.0) % Lymph # (Auto) 1.96 (1.10-4.50) K/mm3 [place] # (Auto) 0.66 (0.10-0.90) K/mm3 Eos # (Auto) 0.01 L (0.02-0.50) K/mm3 Baso # (Auto) 0.02 (0.00-0.10) K/mm3 Abs Immat Gran (auto) 0.04 H (0.00-0.00) K/mm3 Absolute Neuts (auto) 6.0 (1.7-7.2) K/mm3 Absolute Nucleated RBC 0.00 (0.00-0.00) K/mm3 Nucleated RBC % 0.0 (0-0.0) % Sodium 141 (136-145) mmol/L Potassium 3.1 L (3.5-5.1) mmol/L Chloride 105 (98-108) mmol/L Carbon Dioxide 26 (21-32) mmol/L Anion Gap 10 (8-16) mmol/L BUN 10 (7-18) mg/dL Creatinine 0.83 (0.70-1.30) mg/dL Estim Creat Clear Calc 93 ml/min Estimated GFR > 60 (59 - ) Glucose 103 H (70-99) mg/dL Calculated Osmolality 291 (285-295) mOsm/kg Calcium 9.5 (8.5-10.1) mg/dL Total Bilirubin 0.8 (0.00-1.00) mg/dL AST 26 (15-37) U/L ALT 30 (16-63) U/L Alkaline Phosphatase 210 H (46-116) U/L Total Protein 7.5 (6.4-8.2) g/dL Albumin 5.0 (3.4-5.0) g/dL TSH 2.19 (0.36-3.74) uIU/mL Urine Opiates Screen Negative (Negative) Urine Methadone Screen Negative (Negative) Ur Barbiturates Screen Negative (Negative) Ur Phencyclidine Scrn Negative (Negative) Ur Amphetamine Screen Negative (Negative) U Benzodiazepines Scrn Negative (Negative) Urine Cocaine Screen Negative (Negative) U Cannabinoids Screen Negative (Negative) Ethyl Alcohol < 3 (0-6) mg/dL SARS-CoV-2 RNA (RT-PCR) 01/26/20 Range/Units 06:37 WBC (4.8-10.8) K/mm3 RBC (4.70-6.10) M/mm3 Hgb (14.0-18.0) g/dL Hct (40.0-54.0) % MCV (78.0-102.0) fL MCH (27.0-31.0) pg MCHC (32.0-36.0) g/dL RDW (11.6-14.4) % Plt Count (150-420) K/mm3 MPV (8.7-11.0) fl Immature Gran % (Auto) (0.0-0.0) % Neut % (Auto) (50.0-70.0) % Lymph %
[2020-01-27 13:52] LABS: SARS-CoV-2 RNA PCR Negative
== END 2020-01-27 14:45 ==
LOC: CHSED 07:20 → CHS2ND 01-27 07:01
PROVIDERS: Family Medicine; Emergency Provider Family Medicine; PCP Family Medicine
DX: F20.9 Schizophrenia, unspecified (principal); F90.9 Attention-deficit hyperactivity disorder, unspecified type; E78.00 Pure hypercholesterolemia, unspecified
CPT/HCPCS: 36415; 80053; 80307; 84443; 85025; 87635; 93005; 96372; 99283; 99285; A9270; C9803; J2060; U0003

== ENCOUNTER → 2021-02-22 02:54 | Outpatient (CLI) | payer OTHER, SELFPAY ==
[2021-02-22 18:35] LABS: SARS-CoV-2 RNA PCR Negative
== END ==
PROVIDERS: PCP Family Medicine; Visit Provider Surgery
DX: Z01.812 Encounter for preprocedural laboratory examination (principal); Z20.822 Contact with and (suspected) exposure to COVID-19
CPT/HCPCS: C9803; U0003; U0005

== ENCOUNTER 2021-02-25 02:19 | Day surgery (SDC) | payer OTHER, SELFPAY ==
[2021-02-18 13:47] VITALS: BMI 27.4
[2021-02-25 11:42] VITALS: BP 120/76; PULSE 61; RESP 16; TEMP 36.6; O2SAT 98; BMI 29.3
--- NOTE | 2021-02-25 12:09 | P.HPUP_ITS ---
History and Physical Update Update Date/Time: 02/25/21 12:09 History and Physical has been reviewed, including an updated exam of the patient. There are changes in the patient's condition. A correction to the history of HPI which said the lipoma is on the left, but it is actually on the r ight as denoted in the Assessment and Plan. Risks, benefits, and alternatives of removing 2 lipomas (Rt. forearm and med anterior chest) have been discussed and questions answered. Patient agrees to proceed with procedure.
[2021-02-25] MEDS: LACTATED RINGERS 1,000 ML 30 ML IV CONT (12:11)
--- NOTE | 2021-02-25 12:13 | P.PNAN_ITS ---
Anes - Initial Pre Proc Eval Procedure: Operation Date: 02/25/21 13:15 Proposed Procedures p Excision of Lipoma Right Forearm and Left Anterior Chest Lipoma - Saurav Da Silva MD Date/Time: 02/25/21 12:13 Surgeon: Saurav Da Silva MD Pre Op Diagnosis: lipoma Forearm 2.5X2.7,left anterior chest 2.1X3cm Patient Data Age: 25 Gender: M Height: 1.68 m Weight: 82.4 kg Last Vital Signs Temp 36.6 C 02/25/21 11:42 Pulse 61 02/25/21 11:42 Resp 16 02/25/21 11:42 BP 120/76 02/25/21 11:42 Pulse Ox 98 02/25/21 11:42 Allergies Allergy/AdvReac Type Severity Reaction Status Date / Time amoxicillin Allergy Rash Verified 02/25/21 11:44 Home Medications Medication Instructions Recorded Confirmed Type clonidine HCl 0.1 mg PO HS 05/20/19 02/25/21 History risperidone 2 mg PO HS 05/20/19 02/25/21 History rosuvastatin 5 mg PO DAILY 12/16/19 02/25/21 History benztropine 2 mg tablet 5 mg PO DAILY tablet 07/23/20 02/25/21 History Patient hx anesthesia problems: none Family hx anesthesia problems: none Results Review: All pre-operative results and documents have been reviewed as part of the pre-operative evaluation. [facility] Past Medical History Medical History Depression High cholesterol History of seizure Schizophrenia Surgical History Surgical History Hx of tonsillectomy Family History Family History Mother High cholesterol Sibling Seizure disorder Grandparent Diabetes mellitus Cerebrovascular accident Cancer Social History Social History Smoking status: Never smoker Alcohol intake: never Alcohol use details: RARE Substance use: unknown Substance use type: does not use Living arrangements: with family Additional occupation/education comments: disabled Gender identity (if verbalized by the patient): Male Sexual Orientation (if Verbalized by the Patient): Straight or Heterosexual Anes - Eval Final PreProcedure Day of Procedure 02/25/21 12:13 Patient weight: overweight Heart: regular rate and rhythm Lungs: decreased breath sounds Airway: Mallampati scale class II Neurological: other (alert) Last oral intake: >/= 8 hours ASA classification: III Emergent: no Anesthetic plan: proceed Anesthesia type and monitoring: general LMA and standard monitoring Results Review: All pre-operative results and documents have been reviewed as part of the pre-operative evaluation. Informed Consent: The patient's anesthetic plan and its attendant risks and benefits were discussed with the patient/family/POA. Questions were solicited and answers provided to the satisfaction of the patient/family/POA.
[2021-02-25] MEDS: LIDO 2%/EPINEPHRINE 1:100,000 20 ML VIAL INFILTRATE (14:21)
[2021-02-25 14:46] VITALS: BP 122/70; PULSE 69; RESP 12; O2SAT 99
--- NOTE | 2021-02-25 14:57 | W.PM.PROC2 ---
Procedure Note - Detailed Date of Procedure 02/25/21 Pre-op Diagnosis Subcutaneous mass (suspected lipomas) Right Forearm (2.5 X 2.7 cm),left anterior chest (2.1 X 3 cm) Post-op Diagnosis same Procedure Performed Excision of subcutaneous masses Rt. forearm and Lt. anterior chest Surgeon Saurav Da Silva MD [employer] news production assistant. Anesthesia general (GIVS) and local (2 % xylocaine with epinepherine) Indications Pt has enlarging, tender subcutaneous masses on his arm and chest. He has never had one excised in the past. 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 Description of Procedure The patient was placed in the supine position. After a surgical time out confirming patient and procedure the patient was prepped and draped in the usual sterile fashion. Both the site on his right volar forearm and anterior mid chest were prepped. Local anesthetic was administered subcutaneously first on his forearm and then later on the area of his chest. I infiltrated local anesthetic directly over each of these and then up above and below in the subcutaneous space. The right forearm mass measured 2.5 x 1.8 x 0.7 cm upon excision. The anterior chest mass measured 3 x 2.5 x 1.2 cm after excision. A direct incision was made over each of the lesions/masses. Then I carefully put pressure above and below the incision and the lipomas exuded out from the incision. Then carefully elevating these using forceps I used a needle-tip Bovie cautery and they were excised from the subcutaneous space. They were completely excised taking a thin margin circumferentially. It appeared on the chest that there was a little bit of the deep capsule present. Therefore, this was injured with Bovie cautery in order to help prevent recurrence. Bleeding was controlled with electrocautery. Each of the wounds was closed in two layers. An un-dyed 3-0 Vicryl deep dermal sutures and then a 4-0 undyed Monocryl running subcuticular closure on the skin was completed. Surgical glue applied as dressing. On his forearm I thought that some compression from a snug lalo wrap would perhaps help decrease the chance of seroma formation and also protect the wound. So, after the glue dried we applied a small piesce of Telfa and then wrapped the forearm with a 3 lalo wrap. Patient tolerated this well. Implants none Estimated Blood Loss 5 Drains No Packing No Pathology yes (2 subcutaneous masses (suspected lipomas).) Complications No immediate complications Condition stable Disposition same day
[2021-02-25 15:15] VITALS: BP 110/67; PULSE 59; RESP 14
== END 2021-02-25 15:30 | disposition home or self-care (01) ==
PROVIDERS: PCP Family Medicine; Visit Provider Surgery
PROC: (CPT 21552; principal; 2021-02-25 13:15)
DX: D17.21 Benign lipomatous neoplasm of skin and subcutaneous tissue of right arm (principal); D17.1 Benign lipomatous neoplasm of skin and subcutaneous tissue of trunk; E78.00 Pure hypercholesterolemia, unspecified; F20.9 Schizophrenia, unspecified; F32.9 Major depressive disorder, single episode, unspecified
CPT/HCPCS: 21552; 25071; 88304; J2250; J2704; J3010; J7120

== ENCOUNTER 2022-01-01 08:16 | Outpatient (CLI) | payer MEDICARE, SELFPAY ==
[2022-01-01 08:30] LABS: Basophils Absolute Auto 0.03 K/mm3 (0.00-0.10); Basophils Percent Auto 0.4 % (0.0-1.0); Eosinophils Absolute Auto 0.19 K/mm3 (0.02-0.50); Eosinophils Percent Auto 2.5 % (1.0-6.0); Hematocrit 39.8 % (40.0-54.0); Hemoglobin 12.7 g/dL (14.0-18.0); Immature Granulocyte Absolute 0.03 K/mm3 (0.00-0.00); Immature Granulocyte Percent A 0.4 % (0.0-0.0); Lymphocytes Absolute Auto 2.83 K/mm3 (1.10-4.50); Lymphocytes Percent Auto 37.8 % (18.0-42.0); Mean Corpuscular HGB Conc 31.9 g/dL (32.0-36.0); Mean Corpuscular Hemoglobin 25.5 pg (27.0-31.0); Mean Corpuscular Volume 79.9 fL (78.0-102.0); Monocytes Absolute Auto 0.56 K/mm3 (0.10-0.90); Monocytes Percent Auto 7.5 % (2.0-11.0); Neutrophils Absolute Auto 3.9 K/mm3 (1.7-7.2); Neutrophils Percent Auto 51.4 % (50.0-70.0); Platelet Count Result 217 K/mm3 (150-420); Red Blood Count 4.98 M/mm3 (4.70-6.10); Red Cell Distribution Width 14.7 % (11.6-14.4); White Blood Count 7.5 K/mm3 (4.8-10.8)
[2022-01-01 08:58] LABS: Hemoglobin A1C 5.3 % (<5.7)
[2022-01-01 09:10] LABS: Alanine Aminotransferase 61 U/L (16-63); Albumin Level 4.2 g/dL (3.4-5.0); Alkaline Phosphatase 229 U/L (46-116); Anion Gap 9 mmol/L (8-16); Aspartate Amino Transferase 41 U/L (15-37); Bilirubin,Total 0.4 mg/dL (0.00-1.00); Blood Urea Nitrogen 8 mg/dL (7-18); Calcium 9.1 mg/dL (8.5-10.1); Carbon Dioxide 27 mmol/L (21-32); Chloride 107 mmol/L (98-108); Cholesterol 130 mg/dL (0-200); Estimated Glomerular Filt Rate > 60; Glucose 96 mg/dL (70-99); HDL Direct 42 mg/dL (40-60); LDL Cholesterol Calculated 74 mg/dL (<130); Osmolality Calculated 294 mOsm/kg (285-295); Potassium 3.8 mmol/L (3.5-5.1); Sodium 143 mmol/L (136-145); Total Protein 6.7 g/dL (6.4-8.2); Triglycerides 70 mg/dL (0-150)
[2022-01-04 07:47] LABS: Prolactin 36.4 ng/mL (***)
== END 2022-01-01 08:17 | disposition home or self-care (01) ==
LOC: CHSLAB 08:19
PROVIDERS: PCP Family Medicine
DX: Z79.899 Other long term (current) drug therapy (principal); F23 Brief psychotic disorder
CPT/HCPCS: 36415; 80053; 80061; 83036; 84146; 85025

== ENCOUNTER 2022-03-30 09:51 | Emergency (ER) | payer MEDICARE, MEDICAID, SELFPAY ==
[2022-03-30 09:51] VITALS: BP 134/95; PULSE 119; RESP 18; TEMP 37.2; O2SAT 96
--- NOTE | 2022-03-30 10:02 | ED.SEIZURE ---
HPI - Seizure General Chief Complaint: Seizure Stated Complaint: ambualnce Time Seen by Provider: 03/30/22 10:02 Source: patient, EMS and RN notes reviewed Mode of arrival: wheelchair Limitations: no limitations History of Present Illness HPI Narrative: EMS was notified patient was having a seizure on the side of the road. He states that he had walked to [employer] and bought some merchandise. Apparently it checked out and he was walking on his way home when he had a seizure. Someone was driving by and saw him having the seizure and called EMS. EMS arrived and he is no longer seizing at the scene. Did appear postictal. He has not had a seizure in 8 years and been off medication. MD complaint: seizure Onset (ago): minute(s) (45) Description of Episode: tonic-clonic movement Witnessed: Yes - by Bystander Trauma: No Seizure History: Yes Place: outdoors Possible Precipitating Event: none Associated symptoms: confusion Treatments prior to arrival: none Related Data Home Medications Medication Instructions Recorded Confirmed clonidine HCl 0.1 mg tablet 0.1 mg PO BID 03/30/22 03/30/22 risperidone 0.5 mg tablet 0.5 mg PO DAILY 03/30/22 03/30/22 risperidone 1 mg tablet 1 mg PO HS 03/30/22 03/30/22 Allergies Allergy/AdvReac Type Severity Reaction Status Date / Time amoxicillin Allergy Rash Verified 03/30/22 10:34 Review of Systems Review of Systems: All systems reviewed & are unremarkable except as noted in HPI and below PMFSH Past Medical History Medical History (Updated 03/30/22 @ 11:23 by Efrem Georges MD) Depression Seizure disorder Social History Social History (Updated 03/30/22 @ 10:07 by Efrem Georges MD) Smoking status: Current every day smoker Alcohol intake: current Alcohol use details: Occasional Exam Const: General: healthy appearing, no acute distress and alert Nutritional Appearance: well nourished Orientation/consciousness: patient oriented x3 Limitations: no limitations HENMT: Head: normal to inspection Ears: external ears normal Face/Nose/Sinus: Normal external nose present Face and sinus: normal facial exam Eyes: Conjunctivae: conjunctivae normal Pupils: Equal, round and reactive pupils present EOM: EOMs intact bilaterally Neck: Neck: normal visual inspection Resp: Effort & Inspection: normal respiratory effort Auscultation: clear to auscultation bilaterally Cardio: Rate: regular rate Rhythm: regular rhythm GI: GI Palp: Yes Soft to palpation and No Tenderness to palpation present (GI) Auscultation: normal bowel sounds Back/Spine/Pelvis: Cervical Spine: cervical ROM normal Thoracic/Lumbar Spine: thoraco-lumbar ROM normal Skin: General skin exam: normal color Rashes: no rashes Neuro: General: patient oriented x3, moves all extremities, no focal motor deficits and CN's II-XI intact bilaterally Speech: normal speech Extrem: General: normal to inspection and no clubbing, cyanosis or edema Psych: Appearance: grossly normal Mental Status: mental status grossly normal Affect: normal affect Attitude: cooperative Course Course Emergency Course: patient giving loading dose of Keppra 1 g IV. He will be started on oral Keppra and instructed to follow-up with neurologist and primary care physician. Vital Signs Vital signs: Vital Signs Temperature 37.2 C 03/30/22 09:51 Pulse Rate 119 H 03/30/22 09:51 Respiratory Rate 18 03/30/22 09:51 Blood Pressure 134/95 H 03/30/22 09:51 Pulse Oximetry 96 03/30/22 09:51 Oxygen Delivery Room Air 03/30/22 09:51 Temperature 36.6 C 03/30/22 11:31 Pulse Rate 84 03/30/22 11:31 Respiratory Rate 16 03/30/22 11:31 Blood Pressure 106/79 03/30/22 11:31 Pulse Oximetry 98 03/30/22 11:31 Oxygen Delivery Room Air 03/30/22 11:31 MDM - Seizure Differential Diagnosis Differential diagnosis: Likely generalized seizure and epileptic seizure Lab Data Attestation: I reviewed the patient's
[2022-03-30] MEDS: levETIRAcetam 1000MG/NACL100ML 1,000 MG/100 ML BAG 400 MG IVPB (10:21)
[2022-03-30 10:37] LABS: Basophils Absolute Auto 0.03 K/mm3 (0.00-0.10); Basophils Percent Auto 0.3 % (0.0-1.0); Eosinophils Absolute Auto 0.23 K/mm3 (0.02-0.50); Eosinophils Percent Auto 2.5 % (1.0-6.0); Hematocrit 38.7 % (40.0-54.0); Hemoglobin 12.5 g/dL (14.0-18.0); Immature Granulocyte Absolute 0.07 K/mm3 (0.00-0.00); Immature Granulocyte Percent A 0.8 % (0.0-0.0); Lymphocytes Absolute Auto 2.84 K/mm3 (1.10-4.50); Lymphocytes Percent Auto 30.5 % (18.0-42.0); Mean Corpuscular HGB Conc 32.3 g/dL (32.0-36.0); Mean Corpuscular Hemoglobin 25.9 pg (27.0-31.0); Mean Corpuscular Volume 80.1 fL (78.0-102.0); Mean Platelet Volume 10.4 fl (8.7-11.0); Monocytes Absolute Auto 0.82 K/mm3 (0.10-0.90); Monocytes Percent Auto 8.8 % (2.0-11.0); Neutrophils Absolute Auto 5.3 K/mm3 (1.7-7.2); Neutrophils Percent Auto 57.1 % (50.0-70.0); Platelet Count Result 285 K/mm3 (150-420); Red Blood Count 4.83 M/mm3 (4.70-6.10); Red Cell Distribution Width 13.8 % (11.6-14.4); White Blood Count 9.3 K/mm3 (4.8-10.8)
--- NOTE | 2022-03-30 10:44 | PC.NURSE ---
pt complaint of headache,dr roth notified of same
[2022-03-30 11:00] LABS: Alanine Aminotransferase 49 U/L (16-63); Albumin Level 3.9 g/dL (3.4-5.0); Alkaline Phosphatase 216 U/L (46-116); Anion Gap 9 mmol/L (8-16); Aspartate Amino Transferase 31 U/L (15-37); Bilirubin,Total 0.3 mg/dL (0.00-1.00); Blood Urea Nitrogen 7 mg/dL (7-18); Calcium 8.8 mg/dL (8.5-10.1); Carbon Dioxide 27 mmol/L (21-32); Chloride 108 mmol/L (98-108); Estimated CRCL calculation 110 ml/min; Estimated Glomerular Filt Rate > 60; Glucose 109 mg/dL (70-99); Osmolality Calculated 297 mOsm/kg (285-295); Potassium 3.6 mmol/L (3.5-5.1); Sodium 144 mmol/L (136-145); Thyroid Stimulating Hormone 3.86 uIU/mL (0.36-3.74); Total Protein 6.9 g/dL (6.4-8.2)
[2022-03-30 11:11] LABS: Appearance Urine Clear (Clear); Bilirubin Urine Negative (Negative); Blood Urine Negative (Negative); Glucose Urine UA Negative (Negative); Ketones Urine Negative (Negative); Leukocyte Esterase Ur Negative LEU/UL (Negative); Nitrate Urine Negative (Negative); Protein Urine Negative (Negative); Urobilinogen Urine 0.2 mg/dL (0.2-1.0)
[2022-03-30 11:17] LABS: Add Urine Microscopic? NO; Amphetamine Screen Urine Negative (Negative); Barbiturate Screen Urine Negative (Negative); Benzodiazepines Screen Urine Negative (Negative); Cannabinoid Screen Urine Negative (Negative); Cocaine Screen Urine Negative (Negative); Color Urine Light Yellow (Yellow); Ethanol < 3 mg/dL (0-6); Methadone Screen Urine Negative (Negative); Opiate Screen Urine Negative (Negative); Phencyclidine Screen Urine Negative (Negative)
[2022-03-30 11:31] VITALS: BP 106/79; PULSE 84; RESP 16; TEMP 36.6; O2SAT 98
== END 2022-03-30 11:40 | disposition home or self-care (01) ==
PROVIDERS: Emergency Provider Emergency Medicine; PCP Family Medicine
DX: G40.409 Other generalized epilepsy and epileptic syndromes, not intractable, without status epilepticus (principal); F17.200 Nicotine dependence, unspecified, uncomplicated; Z79.899 Other long term (current) drug therapy
CPT/HCPCS: 36415; 80053; 80307; 81003; 84443; 85025; 96365; 99284; J1953

== ENCOUNTER 2022-06-14 19:21 | Emergency (ER) | payer MEDICARE, MEDICAID, SELFPAY ==
--- NOTE | 2022-06-14 19:26 | ECG_ITS ---
Measurements Intervals [place] Rate: 72 P: 50 ND: 129 QRS: 57 QRSD: 105 T: 51 QT: 381 QTc: 418 Interpretive Statements SINUS RHYTHM WITH SINUS ARRHYTHMIA INCOMPLETE RIGHT BUNDLE BRANCH BLOCK BORDERLINE ECG COMPARED TO ECG 01/26/2020 08:37:10 SINUS ARRHYTHMIA NOW PRESENT Electronically Signed On 06-15-2022 7:29:33 [employer] by Stevie Morrison D.O.
[2022-06-14 19:49] VITALS: BP 100/70; PULSE 69; RESP 20; TEMP 36.7; O2SAT 100
[2022-06-14 19:57] LABS: Basophils Absolute Auto 0.04 K/mm3 (0.00-0.10); Basophils Percent Auto 0.5 % (0.0-1.0); Eosinophils Absolute Auto 0.07 K/mm3 (0.02-0.50); Eosinophils Percent Auto 0.8 % (1.0-6.0); Hematocrit 39.7 % (40.0-54.0); Hemoglobin 12.9 g/dL (14.0-18.0); Immature Granulocyte Absolute 0.02 K/mm3 (0.00-0.00); Immature Granulocyte Percent A 0.2 % (0.0-0.0); Lymphocytes Absolute Auto 2.73 K/mm3 (1.10-4.50); Mean Corpuscular HGB Conc 32.5 g/dL (32.0-36.0); Mean Corpuscular Hemoglobin 26.1 pg (27.0-31.0); Mean Corpuscular Volume 80.2 fL (78.0-102.0); Mean Platelet Volume 10.4 fl (8.7-11.0); Monocytes Absolute Auto 0.54 K/mm3 (0.10-0.90); Monocytes Percent Auto 6.3 % (2.0-11.0); Neutrophils Absolute Auto 5.1 K/mm3 (1.7-7.2); Neutrophils Percent Auto 60.2 % (50.0-70.0); Platelet Count Result 298 K/mm3 (150-420); Red Blood Count 4.95 M/mm3 (4.70-6.10); White Blood Count 8.5 K/mm3 (4.8-10.8)
[2022-06-14] MEDS: HALOPERIDOL 0.5 MG TABLET PO (20:08)
[2022-06-14 20:19] LABS: Alanine Aminotransferase 45 U/L (16-63); Alkaline Phosphatase 222 U/L (46-116); Anion Gap 10 mmol/L (8-16); Aspartate Amino Transferase 31 U/L (15-37); Bilirubin,Total 0.5 mg/dL (0.00-1.00); Blood Urea Nitrogen 8 mg/dL (7-18); Calcium 8.6 mg/dL (8.5-10.1); Carbon Dioxide 24 mmol/L (21-32); Chloride 108 mmol/L (98-108); Estimated CRCL calculation 90 ml/min; Estimated Glomerular Filt Rate > 60; Glucose 89 mg/dL (70-99); Osmolality Calculated 291 mOsm/kg (285-295); Potassium 3.6 mmol/L (3.5-5.1); Sodium 142 mmol/L (136-145); Thyroid Stimulating Hormone 2.02 uIU/mL (0.36-3.74)
[2022-06-14 20:24] LABS: Add Urine Microscopic? NO; Appearance Urine Clear (Clear); Bilirubin Urine Negative (Negative); Blood Urine Negative (Negative); Color Urine Light Yellow (Yellow); Glucose Urine UA Negative (Negative); Ketones Urine Negative (Negative); Leukocyte Esterase Ur Negative LEU/UL (Negative); Nitrate Urine Negative (Negative); Protein Urine Negative (Negative); Urobilinogen Urine 0.2 mg/dL (0.2-1.0)
[2022-06-14 20:26] LABS: Ethanol < 3 mg/dL (0-6)
[2022-06-14 20:30] LABS: Amphetamine Screen Urine Negative (Negative); Barbiturate Screen Urine Negative (Negative); Benzodiazepines Screen Urine Negative (Negative); Cannabinoid Screen Urine Negative (Negative); Cocaine Screen Urine Negative (Negative); Methadone Screen Urine Negative (Negative); Opiate Screen Urine Negative (Negative); Phencyclidine Screen Urine Negative (Negative)
--- NOTE | 2022-06-14 20:44 | ED.PSYCH ---
HPI - Psych General Chief Complaint: Psychiatric Symptoms Stated Complaint: brought by police;ana maria Time Seen by Provider: 06/14/22 19:24 Source: patient Limitations: no limitations History of Present Illness HPI Narrative: This is a 26-year-old gentleman with a history of violent behavior was recently released from psychiatric unit and today while at home he began becoming violent and breaking things police was called and he was brought into the emergency department, currently having some psychosis were he is hearing things. Otherwise no shortness of breath no chest pain no fever chills. complaint: altered mental status Onset (ago): hour(s) Duration: constant History of same: Yes Relieving factors: none Related Data Home Medications Medication Instructions Recorded Confirmed clonidine HCl 0.1 mg tablet 0.1 mg PO HS 05/20/19 03/12/21 risperidone 2 mg tablet 2 mg PO HS 05/20/19 03/12/21 rosuvastatin 5 mg tablet 5 mg PO DAILY 12/16/19 03/12/21 benztropine 2 mg tablet 5 mg PO DAILY 07/23/20 03/12/21 Allergies Allergy/AdvReac Type Severity Reaction Status Date / Time amoxicillin Allergy Rash Verified 03/11/21 09:44 Review of Systems Review of Systems: All systems reviewed & are unremarkable except as noted in HPI and below PMFSH Past Medical History Medical History Depression High cholesterol History of seizure Schizophrenia Surgical History Surgical History Hx of tonsillectomy S/P excision of lipoma Right forearm 2.5x2.7cm 02/25/21 Left anterior chest 2.1x3.2cm 02/25/21 Family History Family History Mother High cholesterol Sibling Seizure disorder Grandparent Diabetes mellitus Cerebrovascular accident Cancer Social History Social History Smoking status: Never smoker Alcohol intake: never Alcohol use details: RARE Substance use: unknown Substance use type: does not use Living arrangements: with family Occupation/Education: unemployed Additional occupation/education comments: disabled Gender identity (if verbalized by the patient): Male Sexual Orientation (if Verbalized by the Patient): Straight or Heterosexual Exam Const: General: healthy appearing Nutritional Appearance: well nourished Orientation/consciousness: patient oriented x3 Limitations: no limitations HENMT: Head: normal to inspection Face/Nose/Sinus: Normal external nose present Face and sinus: normal facial exam Mouth: Yes Normal oral and palatal mucosa present Eyes: Conjunctivae: conjunctivae normal Pupils: Equal, round and reactive pupils present EOM: EOMs intact bilaterally Neck: Neck: normal visual inspection Chest: Chest palpation & inspection: normal inspection of the chest Resp: Effort & Inspection: normal respiratory effort Cardio: Rate: regular rate Rhythm: regular rhythm GI: GI Palp: Yes Soft to palpation : General: Yes bladder normal to palpation Urinary Catheter: Urinary Catheter: patent and draining Back/Spine/Pelvis: Back: no CVA tenderness Skin: General skin exam: normal color Rashes: no rashes Wounds: no wounds Neuro: General: patient oriented x3 and no focal motor deficits Cranial nerves: Yes Nystagmus not present Extrem: General: normal to inspection and no clubbing, cyanosis or edema Psych: Affect: Sad affect present Course Course Emergency Course: Labs reviewed with patient EKG, patient received a dose of Haldol and is resting more comfortably labs reviewed and mental health called to come and UA patient. mental health agrees for psychiatric placement patient is medically stable. Vital Signs Vital signs: Vital Signs Temperature 36.7 C 06/14/22 19:49 Pulse Rate 69 06/14/22 19:49 Respiratory Rate 20 06/14/22 19:49
[2022-06-14 20:54] LABS: SARS-CoV-2 RNA PCR Negative (Negative)
[2022-06-14] MEDS: HALOPERIDOL LACTATE 5 MG/ML VIAL IM (21:41)
--- NOTE | 2022-06-15 00:35 | PC.NURSE ---
2300: pt resting in bed with eyes closed 0000: pt resting in bed with eyes closed.
[2022-06-15 00:36] VITALS: BP 122/82; PULSE 69; RESP 20; TEMP 36.7; O2SAT 100
--- NOTE | 2022-06-15 04:30 | PC.NURSE ---
0100 Pt resting with eyes js at this time 0200 Pt resting with eyes js at this time 0300 Pt resting with eyes js at this time 0400 Pt resting with eyes js at this time
[2022-06-15 06:29] VITALS: BP 102/88; PULSE 69; RESP 20; TEMP 36.7; O2SAT 100
--- NOTE | 2022-06-15 06:30 | PC.NURSE ---
0500 pt resting with eyes closed in bed 0600: pt resting in bed with eyes closed.
--- NOTE | 2022-06-15 07:40 | PC.NURSE ---
patient is awake at this time. fed breakfast and went to the bathroom. patient attempted to clog toilet with patient belonging bags and is spitting on the floors. patient is able to be redirected but keeps wandering. patient has come out to nurses station several time and been escorted back to his room. patient has become agitated and is attempting to rearrange furniture in room and climbing on furniture. erp notified of patients agitation and increased hallucinations. medication to be ordered.
[2022-06-15] MEDS: HALOPERIDOL LACTATE 5 MG/ML VIAL IM (07:50)
[2022-06-15 07:54] VITALS: BP 123/70; PULSE 97; RESP 18; TEMP 36.8; O2SAT 98
--- NOTE | 2022-06-15 09:45 | PC.NURSE ---
patient is asleep on stretcher,
--- NOTE | 2022-06-15 10:50 | ED.PSYCH ---
HPI - Psych General Chief Complaint: Psychiatric Symptoms Stated Complaint: brought by police;josefasch Time Seen by Provider: 06/14/22 19:24 Source: patient History of Present Illness Duration: constant Relieving factors: none Related Data Home Medications Medication Instructions Recorded Confirmed clonidine HCl 0.1 mg tablet 0.1 mg PO HS 05/20/19 03/12/21 risperidone 2 mg tablet 2 mg PO HS 05/20/19 03/12/21 rosuvastatin 5 mg tablet 5 mg PO DAILY 12/16/19 03/12/21 benztropine 2 mg tablet 5 mg PO DAILY 07/23/20 03/12/21 Allergies Allergy/AdvReac Type Severity Reaction Status Date / Time amoxicillin Allergy Rash Verified 03/11/21 09:44 COUNTS INCLUDE 234 BEDS AT THE [facility] Past Medical History Medical History Depression High cholesterol History of seizure Schizophrenia Surgical History Surgical History Hx of tonsillectomy S/P excision of lipoma Right forearm 2.5x2.7cm 02/25/21 Left anterior chest 2.1x3.2cm 02/25/21 Family History Family History Mother High cholesterol Sibling Seizure disorder Grandparent Diabetes mellitus Cerebrovascular accident Cancer Social History Social History Smoking status: Never smoker Alcohol intake: never Alcohol use details: RARE Substance use: unknown Substance use type: does not use Living arrangements: with family Occupation/Education: unemployed Additional occupation/education comments: disabled Gender identity (if verbalized by the patient): Male Sexual Orientation (if Verbalized by the Patient): Straight or Heterosexual Course Vital Signs Vital signs: Vital Signs Temperature 36.7 C 06/14/22 19:49 Pulse Rate 69 06/14/22 19:49 Respiratory Rate 20 06/14/22 19:49 Blood Pressure 100/70 06/14/22 19:49 Pulse Oximetry 100 06/14/22 19:49 Oxygen Delivery Room Air 06/14/22 19:49 Temperature 36.8 C 06/15/22 07:54 Pulse Rate 97 06/15/22 07:54 Respiratory Rate 18 06/15/22 07:54 Blood Pressure 123/70 06/15/22 07:54 Pulse Oximetry 98 06/15/22 07:54 Oxygen Delivery Room Air 06/15/22 07:54 MDM - Psych MDM Narrative Medical decision making narrative: HPI Narrative: ? This is a 26-year-old gentleman with a history of violent behavior was recently released from psychiatric unit and today while at home he began becoming violent and breaking things police was called and he was brought into the emergency department, currently having some psychosis were he is hearing things.? Otherwise no shortness of breath no chest pain no fever chills. MD complaint: altered mental status Depression High cholesterol History of seizure Schizophrenia Course Emergency Course: ? Labs reviewed with patient EKG, patient received a dose of Haldol and is resting more comfortably labs reviewed and mental health called to come and UA patient. mental health agrees for psychiatric REVIEWED DR. VALENZUELA CHART FROM THIS MORNING AT CHANGE OF SHIFT SOME NOTES ABOVE. PATIENT STARTED WANDERING THE ER WAS INSTRUCTED TO GO BACK TO THE ROOM TRIED THE URINATE ON THE FLOOR. GIGGLES, DOES FOLLOW COMMANDS. PATIENT GIVEN HALDOL 5 MG IM. PATIENT HAS BEEN ACCEPTED TO INPATIENT PSYCHIATRIC FACILITY [facility] FOR INVOLUNTARY ADMISSION YOU DR. LAN IN [facility] Lab Data 06/14/22 19:47 06/14/22 19:47 Labs: Lab Results 06/14/22 06/14/22 06/14/22 Range/Units 19:47 19:47 19:47 WBC (4.8-10.8) K/mm3 RBC (4.70-6.10) M/mm3 Hgb (14.0-18.0) g/dL Hct (40.0-54.0) % MCV (78.0-102.0) fL MCH (27.0-31.0) pg MCHC (32.0-36.0) g/dL RDW (11.6-14.4) % Plt Count (150-420) K/mm3 MPV (8.7-11.0) fl Immature Gran % (Auto) (0.0-0.0) % Neut % (Auto) (50.0-70.0) % Lymph % (Aut
[2022-06-15 12:02] VITALS: BP 125/82; PULSE 90; RESP 17; TEMP 36.9; O2SAT 99
== END 2022-06-15 12:04 ==
PROVIDERS: Emergency Medicine; Emergency Provider Emergency Medicine; PCP Family Medicine
DX: R45.6 Violent behavior (principal); F32.A Depression, unspecified; Z79.899 Other long term (current) drug therapy; Z20.822 Contact with and (suspected) exposure to COVID-19
CPT/HCPCS: 36415; 80053; 80307; 81003; 84443; 85025; 87426; 93005; 96372; 99285; A9270; C9803; J1630; U0003; U0005

== ENCOUNTER 2023-06-08 21:04 | Emergency (ER) | payer OTHER, SELFPAY ==
--- NOTE | ~2023-06-08 | CT_ITS ---
EXAMINATION: CT abdomen pelvis w con INDICATION: Right-sided abdominal pain TECHNIQUE: Computed tomographic images of the abdomen and pelvis were obtained after the administrati on of 100 cc of Omnipaque 350 intravenous contrast. The dose-length product (DLP) was 475.46 mGy-cm. Automated exposure control and iterative reconstruction technique were employed. COMPARISON: None available FINDINGS: The lung bases are clear. The heart size is normal. The liver is diffusely low in attenuati on when compared with the spleen, consistent with hepatic steatosis. The spleen, pancreas, and adrena l glands are normal. Stones are present in the nondistended gallbladder. The kidneys are unremarkable . No pathologically enlarged abdominal or pelvic lymph nodes are identified. No free intraperitoneal gas or evidence of bowel obstruction. The appendix is normal. There is an umbilical hernia containing fat. IMPRESSION: 1. Cholelithiasis without additional findings of cholecystitis. 2. Diffuse hepatic steatosis. Reviewed, dictated and finalized at location [facility]
[2023-06-08 21:04] VITALS: BP 133/89; PULSE 80; RESP 18; TEMP 36; O2SAT 98
--- NOTE | 2023-06-08 21:08 | ED.ABDPAIN ---
HPI - Abdominal Pain General Chief Complaint: Abdominal Pain Stated Complaint: abdominal pain Time Seen by Provider: 06/08/23 21:06 Source: patient Mode of arrival: ambulatory History of Present Illness HPI narrative: 27-year-old male with a history of seizures, bipolar, violent behavior,dyslipidemia, presents to the ER with a 2 hour history of -- abdominal pain-- located in right upper quadrant/ right flank region. Pain was initially noted as 10/10 but is currently 4/10. No nausea/ vomiting. No fever or chills. MD elicited complaint: abdominal pain Pertinent past history: other ( gallstones) Onset (ago): hour(s) ( Started 2 hours ago) Pain Consistency: constant Location: RUQ Severity: mild Pain scale (0-10): 4 Quality: aching Radiation: none Migration to: no migration Exacerbating factors: nothing Relieving factors: nothing Associated symptoms: denies other symptoms Related Data Home Medications Medication Instructions Recorded Confirmed clonidine HCl 0.1 mg tablet 0.1 mg PO HS 05/20/19 06/08/23 risperidone 2 mg tablet (Risperdal) 2 mg PO HS 05/20/19 06/08/23 rosuvastatin 5 mg tablet (Crestor) 5 mg PO DAILY 12/16/19 06/08/23 benztropine 2 mg tablet 5 mg PO DAILY 07/23/20 06/08/23 paliperidone palmitate 156 mg/mL 156 mg IM MONTHLY 06/08/23 06/08/23 intramuscular syringe (Invega Sustenna) trazodone 150 mg tablet 150 mg PO HS 06/08/23 06/08/23 Allergies Allergy/AdvReac Type Severity Reaction Status Date / Time amoxicillin Allergy Rash Verified 06/08/23 21:34 Review of Systems Review of Systems: All systems reviewed & are unremarkable except as noted in HPI and below Constitutional: Constitutional: Reports as per HPI and Reports no additional constitutional complaints Eyes: Eyes: Reports as per HPI and Reports no additional eye complaints ENT: Reports system reviewed and no additional complaints, except as documented and Reports as per HPI Cardiovascular: Cardiovascular: Reports as per HPI and Reports no additional cardiovascular complaints Respiratory: Respiratory: Reports as per HPI and Reports no additional respiratory complaints Gastrointestinal: Gastrointestinal: Reports as per HPI, Reports no additional gastrointestinal complaints and Reports abdominal pain Genitourinary: Genitourinary: Reports no additional male genitourinary complaints and Reports as per HPI Musculoskeletal: Musculoskeletal: Reports no additional musculoskeletal complaints and Reports as per HPI Integumentary/Breasts: Skin/Breast: Reports system reviewed and no additional complaints, except as docu and Reports as per HPI Comments: multiple cutaneous healed scars of both upper extremity Neurologic: Reports system reviewed and no additional complaints, except as documented and Reports as per HPI Psychiatric: Psychiatric: Reports no additional psychiatric complaints and Reports as per HPI Endocrine: Endocrine: Reports no additional endocrine complaints and Reports as per HPI Hematologic/Lymphatic: Hematologic/Lymphatic: Reports no additional hematologic/lymphatic complaints and Reports as per HPI Allergic/Immunologic: Allergic/Immunologic: Reports no additional allergic/immunologic complaints and Reports as per HPI PMFSH Past Medical History Medical History Depression High cholesterol History of seizure Schizophrenia Surgical History Surgical History Hx of tonsillectomy S/P excision of lipoma Right forearm 2.5x2.7cm 02/25/21 Left anterior chest 2.1x3.2cm 02/25/21 Family History Family History Mother High cholesterol Sibling Seizure disorder Grandparent Diabetes mellitus Cerebrovascular accident Cancer Social History Social History Smoking status: Never smoker Alcohol intake
[2023-06-08 21:26] LABS: Basophils Absolute Auto 0.03 K/mm3 (0.00-0.10); Basophils Percent Auto 0.4 % (0.0-1.0); Eosinophils Absolute Auto 0.23 K/mm3 (0.02-0.50); Eosinophils Percent Auto 2.8 % (1.0-6.0); Hematocrit 40.2 % (40.0-54.0); Hemoglobin 13.7 g/dL (14.0-18.0); Immature Granulocyte Absolute 0.03 K/mm3 (0.00-0.00); Immature Granulocyte Percent A 0.4 % (0.0-0.0); Lymphocytes Absolute Auto 2.18 K/mm3 (1.10-4.50); Lymphocytes Percent Auto 26.6 % (18.0-42.0); Mean Corpuscular HGB Conc 34.1 g/dL (32.0-36.0); Mean Corpuscular Hemoglobin 28.5 pg (27.0-31.0); Mean Corpuscular Volume 83.6 fL (78.0-102.0); Mean Platelet Volume 9.8 fl (8.7-11.0); Monocytes Absolute Auto 0.74 K/mm3 (0.10-0.90); Neutrophils Percent Auto 60.8 % (50.0-70.0); Platelet Count Result 202 K/mm3 (150-420); Red Blood Count 4.81 M/mm3 (4.70-6.10); Red Cell Distribution Width 12.4 % (11.6-14.4); White Blood Count 8.2 K/mm3 (4.8-10.8)
[2023-06-08 21:33] LABS: Appearance Urine Clear (Clear); Bilirubin Urine Negative (Negative); Blood Urine Negative (Negative); Color Urine Yellow (Yellow); Glucose Urine UA Negative (Negative); Ketones Urine Negative (Negative); Leukocyte Esterase Ur Negative LEU/UL (Negative); Nitrate Urine Negative (Negative); Protein Urine Negative (Negative)
[2023-06-08 21:34] LABS: Add Urine Microscopic? NO
[2023-06-08 21:41] LABS: Partial Thromboplastin Time 30.3 SEC (23.90-30.70)
[2023-06-08 21:44] LABS: Alanine Aminotransferase 99 U/L (16-63); Albumin Level 3.9 g/dL (3.4-5.0); Alkaline Phosphatase 227 U/L (46-116); Anion Gap 9 mmol/L (8-16); Aspartate Amino Transferase 46 U/L (15-37); Bilirubin Direct 0.1 mg/dL (0-0.2); Bilirubin,Total 0.3 mg/dL (0.00-1.00); Blood Urea Nitrogen 13 mg/dL (7-18); Calcium 8.3 mg/dL (8.5-10.1); Carbon Dioxide 27 mmol/L (21-32); Chloride 103 mmol/L (98-108); Estimated CRCL calculation 129 ml/min; Estimated Glomerular Filt Rate > 60; Glucose 108 mg/dL (70-99); Osmolality Calculated 289 mOsm/kg (285-295); Potassium 3.8 mmol/L (3.5-5.1); Sodium 139 mmol/L (136-145); Total Protein 6.4 g/dL (6.4-8.2)
[2023-06-08 21:49] LABS: Lactic Acid Reflex 0.8 mmol/L (0.4-2.0)
[2023-06-08] MEDS: LACTATED RINGERS 1,000 ML 999 ML IV CONT (22:09)
[2023-06-08] MEDS: HYDROmorphone HCL INJ (*CRX) 2 MG/ML VIAL 0.5 MG IV PUSH (22:57)
[2023-06-08] MEDS: ONDANSETRON INJ 4 MG/2 ML VIAL IV PUSH (22:57)
[2023-06-08 23:02] VITALS: BP 127/71; PULSE 62; RESP 16; TEMP 36.8; O2SAT 96
== END 2023-06-08 23:20 | disposition home or self-care (01) ==
PROVIDERS: Emergency Provider Internal Medicine Critical Care Medicine; PCP Family Medicine
DX: K80.20 Calculus of gallbladder without cholecystitis without obstruction (principal); K76.0 Fatty (change of) liver, not elsewhere classified; E78.5 Hyperlipidemia, unspecified; Z79.899 Other long term (current) drug therapy
CPT/HCPCS: 36415; 74177; 80048; 80076; 81003; 83605; 85025; 85730; 96361; 96374; 96375; 99284; J1170; J2405; J7120; Q9967

== ENCOUNTER 2023-11-13 18:27 | Emergency (ER) | payer OTHER, SELFPAY ==
[2023-11-13 18:28] VITALS: BP 131/90; PULSE 142; RESP 20; TEMP 36.4; O2SAT 96
--- NOTE | 2023-11-13 18:58 | PC.NURSE ---
report to ELISSA franco.
--- NOTE | 2023-11-13 19:01 | PC.NURSE ---
assumed care. report received from augustine snow
--- NOTE | 2023-11-13 19:08 | ED.GENADULT ---
HPI - General Adult General Chief complaint: Nausea/Vomiting/Diarrhea Stated complaint: vomiting & diarrhea Time Seen by Provider: 11/13/23 18:56 History of Present Illness HPI narrative: This is a 28-year-old male history of gallstones presenting for 1 day of nausea vomiting diarrhea. Symptoms started at 8:00 a.m. this morning. They seem to have improved throughout the day. Patient denies fevers chills URI symptoms chest pain difficulty breathing abdominal pain or urinary symptoms. No sick contacts at home. Related Data Home Medications Medication Instructions Recorded Confirmed clonidine HCl 0.1 mg tablet 0.1 mg PO HS 05/20/19 06/08/23 risperidone 2 mg tablet (Risperdal) 2 mg PO HS 05/20/19 06/08/23 rosuvastatin 5 mg tablet (Crestor) 5 mg PO DAILY 12/16/19 06/08/23 benztropine 2 mg tablet 5 mg PO DAILY 07/23/20 06/08/23 paliperidone palmitate 156 mg/mL 156 mg IM MONTHLY 06/08/23 06/08/23 intramuscular syringe (Invega Sustenna) trazodone 150 mg tablet 150 mg PO HS 06/08/23 06/08/23 Allergies Allergy/AdvReac Type Severity Reaction Status Date / Time amoxicillin Allergy Rash Verified 06/08/23 21:34 [facility] Past Medical History Medical History Depression High cholesterol History of seizure Schizophrenia Surgical History Surgical History Hx of tonsillectomy S/P excision of lipoma Right forearm 2.5x2.7cm 02/25/21 Left anterior chest 2.1x3.2cm 02/25/21 Family History Family History Mother High cholesterol Sibling Seizure disorder Grandparent Diabetes mellitus Cerebrovascular accident Cancer Social History Social History Smoking status: Never smoker Alcohol intake: current Alcohol use details: RARE Substance use: never Substance use type: does not use Living arrangements: with family Occupation/Education: unemployed Additional occupation/education comments: disabled Gender identity (if verbalized by the patient): Male Sexual Orientation (if Verbalized by the Patient): Straight or Heterosexual Spiritual care concerns: No Exam Narrative: APPEARANCE: No apparent distress. Head: atraumatic. EYES: EOMI, NOSE: Atraumatic NECK: Trachea midline RESPIRATORY: No increased rate of breathing CARDIOVASCULAR: RRR, ABDOMINAL: Soft nontender no guarding or rebound no CVA tenderness MUSCULOSKELETAl: No obvious deformities NEURO: Alert. Moving 4/4 extremities SKIN:: Warm, dry. Normal color PSYCHIATRIC: Normal affect Course Vital Signs Vital signs: Vital Signs Temperature 97.5 F L 11/13/23 18:28 Pulse Rate 142 H 11/13/23 18:28 Respiratory Rate 20 11/13/23 18:28 Blood Pressure 131/90 11/13/23 18:28 Pulse Oximetry 96 11/13/23 18:28 Oxygen Delivery Room Air 11/13/23 18:28 Temperature 97.5 F L 11/13/23 18:28 Pulse Rate 90 11/13/23 20:15 Respiratory Rate 18 11/13/23 20:15 Blood Pressure 132/92 H 11/13/23 20:15 Pulse Oximetry 97 11/13/23 20:15 Oxygen Delivery Room Air 11/13/23 20:15 Medical Decision Making MDM Narrative Medical decision making narrative: -Course: 28-year-old presenting with 1 day of nausea vomiting diarrhea. Abdominal exam benign. Lab work showed white count 13.7. AST in LA T normal. Alcohol slightly elevated although that is chronic for this patient. Patient was given fluid resuscitation antiemetics with improvement. He is now able tolerate p.o.. abdominal exam is still benign. Initial vital signs are triage was 140 although this improved to the 90s shortly after arrival. VS stable on discharge. Patient be discharged with supportive therapy and given return precautions. -DDX includes but is not limited to: Gastroenteritis, food poisoning, viral syndrome, cholecystitis, -Co-morbiditie
--- NOTE | 2023-11-13 19:13 | PC.NURSE ---
patient ambulated to the bathroom to give urine sample
[2023-11-13 19:19] LABS: Basophils Absolute Auto 0.02 K/mm3 (0.00-0.10); Basophils Percent Auto 0.1 % (0.0-1.0); Eosinophils Absolute Auto 0.01 K/mm3 (0.02-0.50); Eosinophils Percent Auto 0.1 % (1.0-6.0); Hemoglobin 14.9 g/dL (14.0-18.0); Immature Granulocyte Absolute 0.06 K/mm3 (0.00-0.00); Immature Granulocyte Percent A 0.4 % (0.0-0.0); Lymphocytes Absolute Auto 0.83 K/mm3 (1.10-4.50); Mean Corpuscular HGB Conc 33.9 g/dL (32-36); Mean Corpuscular Hemoglobin 28.1 pg (27.0-31.0); Monocytes Absolute Auto 1.01 K/mm3 (0.10-0.90); Monocytes Percent Auto 7.4 % (2.0-11.0); Neutrophils Absolute Auto 11.79 K/mm3 (1.70-7.20); Platelet Count Result 201 K/mm3 (150-420); Red Cell Distribution Width 12.7 % (11.6-14.4); White Blood Count 13.7 K/mm3 (4.8-10.8)
[2023-11-13] MEDS: FAMOTIDINE 20 MG/2 ML VIAL IV PUSH (19:19)
[2023-11-13] MEDS: ONDANSETRON INJ 4 MG/2 ML VIAL IV PUSH (19:19)
[2023-11-13] MEDS: SODIUM CHLORIDE 0.9% IV 2,000 ML 999 ML IV CONT (19:19)
[2023-11-13 19:29] LABS: Bilirubin Urine 1+ (Negative); Blood Urine Negative (Negative); Color Urine Dark Yellow (Yellow); Glucose Urine UA Negative (Negative); Ketones Urine Trace (Negative); Leukocyte Esterase Ur Negative LEU/UL (Negative); Nitrate Urine Negative (Negative); Protein Urine Trace (Negative)
[2023-11-13 19:34] LABS: Add Urine Microscopic? YES; Appearance Urine Sl Cloudy (Clear); RBC Urine 0-2 /hpf (0-2); Squamous Epithelial Cell Urine Rare /hpf (Few); WBC Urine 0-3 /hpf (0-3)
[2023-11-13 19:35] LABS: Bacteria Urine 2+ /hpf; Mucus Urine Moderate /lpf
[2023-11-13 19:36] LABS: Alanine Aminotransferase 59 U/L (16-63); Alkaline Phosphatase 230 U/L (46-116); Anion Gap 12 mmol/L (4-12); Aspartate Amino Transferase 31 U/L (15-37); Bilirubin,Total 0.5 mg/dL (0.00-1.00); Blood Urea Nitrogen 15 mg/dL (7-18); Calcium 8.9 mg/dL (8.5-10.1); Carbon Dioxide 22 mmol/L (21-32); Chloride 103 mmol/L (98-108); Estimated CRCL calculation 108 ml/min; Estimated Glomerular Filt Rate > 60; Glucose 129 mg/dL (70-99); Lipase 18 U/L (16-77); Osmolality Calculated 286 mOsm/kg (285-295); Potassium 3.7 mmol/L (3.5-5.1); Sodium 137 mmol/L (136-145)
[2023-11-13 20:04] LABS: Influenza A QL RT-PCR Negative (Negative); Influenza B QL RT-PCR Negative (Negative); RSV RNA, RT-PCR Negative (Negative); SARS-CoV-2 RNA PCR Negative (Negative)
[2023-11-13 20:15] VITALS: BP 132/92; PULSE 90; RESP 18; O2SAT 97
--- NOTE | 2023-11-13 20:27 | PC.NURSE ---
crackers and water given. reports some nausea but no vomiting at this time
--- NOTE | 2023-11-13 20:48 | PC.NURSE ---
patient reports that he is feeling better and is ready to go home. ER provider notified
== END 2023-11-13 21:13 | disposition home or self-care (01) ==
PROVIDERS: Emergency Provider Emergency Medicine; PCP Family Medicine
DX: K52.9 Noninfective gastroenteritis and colitis, unspecified (principal); Z20.822 Contact with and (suspected) exposure to COVID-19
CPT/HCPCS: 36415; 80053; 81001; 83690; 85025; 87637; 96361; 96374; 96375; 99284; J2405; J7030

== ENCOUNTER 2023-11-26 05:25 | Emergency (ER) | payer OTHER, SELFPAY ==
--- NOTE | ~2023-11-26 | CT_ITS ---
EXAMINATION: CT abdomen pelvis w con DATE: 11/26/2023 07:01 INDICATION: Recurrent abdominal pain. TECHNIQUE: Computed tomography (CT) of the abdomen and pelvis was performed with 100 mL Omnipaque 350 intravenous contrast. Automated exposure control and iterative reconstruction technique were employe d. The dose-length product was 469.21 mGy-cm. COMPARISON: CT abdomen pelvis 06/08/2023 FINDINGS: The visualized portions of the lung bases are clear without pneumonia or pleural effusion. The heart size is normal. No pericardial effusion. The liver and spleen are normal. There are gallsto wendy in the gallbladder, which is normal in size. The pancreas, adrenal glands, and kidneys are normal . There are no dilated loops of bowel. The appendix is normal. There are no pathologically enlarged l ymph nodes. There is no free intraperitoneal fluid. There is mild thoracic and lumbar spondylosis. IMPRESSION: 1. Cholelithiasis. No evidence of acute cholecystitis. Reviewed, dictated and finalized at location E.
[2023-11-26 05:28] VITALS: BP 129/96; PULSE 57; RESP 18; TEMP 36.1; O2SAT 98
--- NOTE | 2023-11-26 05:37 | ED.ABDPAIN ---
HPI - Abdominal Pain General Chief Complaint: Abdominal Pain Stated Complaint: abdominal pain Time Seen by Provider: 11/26/23 05:37 Source: patient Mode of arrival: ambulatory Limitations: no limitations History of Present Illness HPI narrative: 28-year-old male with a history of schizophrenia, gallstones, hepatic steatosis presents to the ER with 12 hour history of -- abdominal pain. the pain is located in the right lower quadrant and bilateral flank. No fever or chills. No nausea / vomiting /abdominal pain / diarrhea. MD elicited complaint: abdominal pain Pertinent past history: other ( Gallstones, hepatic steatosis) Onset (ago): hour(s) ( 12 hours) Pain Consistency: constant Location: RLQ, L flank and R flank Severity: moderate Quality: aching Radiation: none Exacerbating factors: nothing Relieving factors: nothing Associated symptoms: denies other symptoms Related Data Home Medications Medication Instructions Recorded Confirmed clonidine HCl 0.1 mg tablet 0.1 mg PO HS 05/20/19 06/08/23 risperidone 2 mg tablet (Risperdal) 2 mg PO HS 05/20/19 06/08/23 rosuvastatin 5 mg tablet (Crestor) 5 mg PO DAILY 12/16/19 06/08/23 benztropine 2 mg tablet 5 mg PO DAILY 07/23/20 06/08/23 paliperidone palmitate 156 mg/mL 156 mg IM MONTHLY 06/08/23 06/08/23 intramuscular syringe (Invega Sustenna) trazodone 150 mg tablet 150 mg PO HS 06/08/23 06/08/23 Allergies Allergy/AdvReac Type Severity Reaction Status Date / Time amoxicillin Allergy Rash Verified 06/08/23 21:34 Review of Systems Review of Systems: All systems reviewed & are unremarkable except as noted in HPI and below Constitutional: Constitutional: Reports as per HPI and Reports no additional constitutional complaints Eyes: Eyes: Reports as per HPI and Reports no additional eye complaints ENT: Reports system reviewed and no additional complaints, except as documented and Reports as per HPI Cardiovascular: Cardiovascular: Reports as per HPI and Reports no additional cardiovascular complaints Respiratory: Respiratory: Reports as per HPI and Reports no additional respiratory complaints Gastrointestinal: Gastrointestinal: Reports as per HPI, Reports no additional gastrointestinal complaints and Reports abdominal pain Genitourinary: Genitourinary: Reports no additional male genitourinary complaints and Reports as per HPI Musculoskeletal: Musculoskeletal: Reports no additional musculoskeletal complaints and Reports as per HPI Integumentary/Breasts: Skin/Breast: Reports system reviewed and no additional complaints, except as docu and Reports as per HPI Neurologic: Reports system reviewed and no additional complaints, except as documented and Reports as per HPI Psychiatric: Psychiatric: Reports no additional psychiatric complaints and Reports as per HPI Endocrine: Endocrine: Reports no additional endocrine complaints and Reports as per HPI Hematologic/Lymphatic: Hematologic/Lymphatic: Reports no additional hematologic/lymphatic complaints and Reports as per HPI Allergic/Immunologic: Allergic/Immunologic: Reports no additional allergic/immunologic complaints and Reports as per HPI PMFSH Past Medical History Medical History Depression High cholesterol History of seizure Schizophrenia Surgical History Surgical History Hx of tonsillectomy S/P excision of lipoma Right forearm 2.5x2.7cm 02/25/21 Left anterior chest 2.1x3.2cm 02/25/21 Family History Family History Mother High cholesterol Sibling Seizure disorder Grandparent Diabetes mellitus Cerebrovascular accident Cancer Social History Social History Smoking status: Never smoker Alcohol intake: current Alcohol use details: RARE Substance use: never Substance use t
[2023-11-26 06:06] LABS: Basophils Absolute Auto 0.03 K/mm3 (0.00-0.10); Basophils Percent Auto 0.4 % (0.0-1.0); Eosinophils Absolute Auto 0.18 K/mm3 (0.02-0.50); Eosinophils Percent Auto 2.2 % (1.0-6.0); Hematocrit 38.9 % (40.0-54.0); Hemoglobin 13.3 g/dL (14.0-18.0); Immature Granulocyte Absolute 0.02 K/mm3 (0.00-0.00); Immature Granulocyte Percent A 0.2 % (0.0-0.0); Lymphocytes Absolute Auto 3.47 K/mm3 (1.10-4.50); Lymphocytes Percent Auto 41.8 % (18.0-42.0); Mean Corpuscular HGB Conc 34.2 g/dL (32-36); Mean Corpuscular Hemoglobin 28.1 pg (27.0-31.0); Mean Corpuscular Volume 82.2 fL (78.0-102.0); Mean Platelet Volume 10.1 fl (8.7-11.0); Monocytes Absolute Auto 0.51 K/mm3 (0.10-0.90); Monocytes Percent Auto 6.1 % (2.0-11.0); Neutrophils Absolute Auto 4.09 K/mm3 (1.70-7.20); Neutrophils Percent Auto 49.3 % (50.0-70.0); Platelet Count Result 231 K/mm3 (150-420); Red Blood Count 4.73 M/mm3 (4.70-6.10); Red Cell Distribution Width 12.3 % (11.6-14.4); White Blood Count 8.3 K/mm3 (4.8-10.8)
[2023-11-26 06:08] LABS: Appearance Urine Clear (Clear); Bilirubin Urine Negative (Negative); Blood Urine Negative (Negative); Color Urine Light Yellow (Yellow); Glucose Urine UA Negative (Negative); Ketones Urine Negative (Negative); Leukocyte Esterase Ur Negative LEU/UL (Negative); Nitrate Urine Negative (Negative); Protein Urine Negative (Negative); Urobilinogen Urine 0.2 mg/dL (0.2-1.0); pH Urine 6.5 (5.0-8.0)
[2023-11-26 06:12] LABS: Add Urine Microscopic? NO
--- NOTE | 2023-11-26 06:13 | PC.NURSE ---
urine was taken to the lab. patient is resting on stretcher with his mother at his side. call light in reach.
[2023-11-26 06:18] LABS: INR 1.1; Prothrombin Time 11.8 Seconds (9.50-12.1)
--- NOTE | 2023-11-26 06:19 | PC.NURSE ---
patient ambulated to the bathroom to have bowel movement
[2023-11-26 06:21] LABS: Alanine Aminotransferase 63 U/L (16-63); Albumin Level 3.7 g/dL (3.4-5.0); Alkaline Phosphatase 183 U/L (46-116); Anion Gap 8 mmol/L (4-12); Aspartate Amino Transferase 37 U/L (15-37); Bilirubin,Total 0.3 mg/dL (0.00-1.00); Blood Urea Nitrogen 10 mg/dL (7-18); Calcium 8.7 mg/dL (8.5-10.1); Carbon Dioxide 28 mmol/L (21-32); Chloride 105 mmol/L (98-108); Estimated CRCL calculation 129 ml/min; Estimated Glomerular Filt Rate > 60; Glucose 106 mg/dL (70-99); Lipase 30 U/L (16-77); Osmolality Calculated 291 mOsm/kg (285-295); Potassium 3.6 mmol/L (3.5-5.1); Sodium 141 mmol/L (136-145); Total Protein 6.4 g/dL (6.4-8.2)
[2023-11-26 06:26] LABS: Lactic Acid Reflex 0.5 mmol/L (0.4-2.0)
[2023-11-26] MEDS: LACTATED RINGERS 1,000 ML 999 ML IV CONT (07:11)
[2023-11-26 08:00] VITALS: BP 117/76; PULSE 48; RESP 16; O2SAT 98
== END 2023-11-26 08:00 | disposition home or self-care (01) ==
PROVIDERS: Emergency Provider Internal Medicine Critical Care Medicine; PCP Family Medicine
DX: K80.20 Calculus of gallbladder without cholecystitis without obstruction (principal)
CPT/HCPCS: 36415; 74177; 80053; 81003; 83605; 83690; 85025; 85610; 96360; 99284; J7120; Q9967

== ENCOUNTER 2024-01-22 21:44 | Emergency (ER) | payer OTHER, SELFPAY ==
--- NOTE | ~2024-01-22 | CT_ITS ---
EXAMINATION: CT brain wo con DATE: 01/22/2024 22:20 INDICATION: Dizziness. TECHNIQUE: Computed tomography (CT) of the head was performed without intravenous contrast. The mA wa s adjusted according to patient size. Iterative reconstruction technique was employed. The dose-lengt h product was 605.33 mGy-cm. COMPARISON: Head CT 02/09/2018 FINDINGS: There is no intracranial hemorrhage, acute infarction, or abnormal intracranial mass lesion . The ventricles are normal in size. The orbits are normal. There is mild mucosal thickening in the p aranasal sinuses. The mastoid air cells are normal. IMPRESSION: 1. Normal brain. Reviewed, dictated and finalized at location A. IMPRESSION: 1. Normal brain.
--- NOTE | ~2024-01-22 | XR_ITS ---
EXAMINATION: XR chest 2V DATE: 01/22/2024 22:20 INDICATION: Sternal chest pain. TECHNIQUE: Frontal and lateral views of the chest were obtained. COMPARISON: CT abdomen and pelvis 11/26/23 FINDINGS: There is no pneumonia, pleural effusion, or pneumothorax. The heart size is normal. IMPRESSION: 1. No acute cardiopulmonary disease. Reviewed, dictated and finalized at location A.
[2024-01-22 21:45] VITALS: BP 152/95; PULSE 100; RESP 18; TEMP 36.2; O2SAT 96
--- NOTE | 2024-01-22 22:01 | ECG_ITS ---
Test Date: 2024-01-22 22:21:33 Measurements Intervals Reserve Rate: 61 P: 31 AR: 145 QRS: 49 QRSD: 98 T: 38 QT: 418 QTc: 422 Interpretive Statements SINUS RHYTHM NORMAL ECG No previous ECG available for comparison Electronically Signed On 01-24-2024 08:07:30 CDT by Stevie Morrison D.O.
--- NOTE | 2024-01-22 22:03 | ED.DIZZY ---
HPI - Dizziness General Chief Complaint: Dizziness Stated Complaint: dizzy; eye issues Time Seen by Provider: 01/22/24 21:46 Source: patient and family Mode of arrival: ambulatory Limitations: other ( Patient has a baseline slow mentation) History of Present Illness HPI Narrative: patient is a 28-year-old male with not feeling well and occasional chest pain this evening. He mostly was dizzy and the sensation of spinning around his head. He also has a right eye inflammation after a wood chip poked his eye yesterday. He does not feel like something is still in the eye at this time. He has a seizure disorder and has not missed his medications. Tonight he had 4 beers. He is here with his mother. MD elicited complaint: dizziness Onset (ago): day(s) (1) Timing: gradual onset and constant Severity: mild Description: room spinning History of similar symptoms: Yes Exacerbating factors: nothing Relieving factors: nothing Associated symptoms: chest pain and other ( Right eye irritation) Related Data Home Medications Medication Instructions Recorded Confirmed clonidine HCl 0.1 mg tablet 0.1 mg PO BID 03/30/22 01/22/24 risperidone 0.5 mg tablet 0.5 mg PO DAILY 03/30/22 01/22/24 risperidone 1 mg tablet 1 mg PO HS 03/30/22 01/22/24 trazodone 150 mg tablet 150 mg PO HS 01/22/24 01/22/24 Allergies Allergy/AdvReac Type Severity Reaction Status Date / Time amoxicillin Allergy Rash Verified 03/30/22 10:34 Review of Systems Review of Systems: All systems reviewed & are unremarkable except as noted in HPI and below Constitutional: Constitutional: Reports no additional constitutional complaints Eyes: Eyes: Reports no additional eye complaints ENT: Reports system reviewed and no additional complaints, except as documented Cardiovascular: Cardiovascular: Reports no additional cardiovascular complaints Respiratory: Respiratory: Reports no additional respiratory complaints Gastrointestinal: Gastrointestinal: Reports no additional gastrointestinal complaints Genitourinary: Genitourinary: Reports no additional male genitourinary complaints Musculoskeletal: Musculoskeletal: Reports no additional musculoskeletal complaints Integumentary/Breasts: Skin/Breast: Reports system reviewed and no additional complaints, except as docu Neurologic: Reports system reviewed and no additional complaints, except as documented Psychiatric: Psychiatric: Reports no additional psychiatric complaints Endocrine: Endocrine: Reports no additional endocrine complaints Hematologic/Lymphatic: Hematologic/Lymphatic: Reports no additional hematologic/lymphatic complaints Allergic/Immunologic: Allergic/Immunologic: Reports no additional allergic/immunologic complaints PMFSH Past Medical History Medical History Depression Seizure disorder Social History Social History Smoking status: Current every day smoker Alcohol intake: current Alcohol use details: Occasional Exam Const: General: healthy appearing Nutritional Appearance: well nourished Orientation/consciousness: patient oriented x3 HENMT: Head: normal to inspection Ears: TM's normal bilaterally Face/Nose/Sinus: Normal external nose present Eyes: Conjunctivae: conjunctivae normal Pupils: Equal, round and reactive pupils present EOM: EOMs intact bilaterally Neck: Neck: normal visual inspection Chest: Chest palpation & inspection: normal inspection of the chest Resp: Effort & Inspection: normal respiratory effort and not labored Auscultation: clear to auscultation bilaterally and no crackles Cardio: Rate: regular rate Rhythm: regular rhythm Heart sounds: no murmurs GI: Inspection: non-distended GI Palp: Yes Soft to palpation and No Tenderness to palpation present (GI) Auscultation: normal bowel sounds : General: Yes bladder normal to palpation Back/Spine/P
[2024-01-22 22:14] LABS: Add Urine Microscopic? NO; Appearance Urine Clear (Clear); Bilirubin Urine Negative (Negative); Blood Urine Negative (Negative); Color Urine Light Yellow (Yellow); Glucose Urine UA Negative (Negative); Ketones Urine Negative (Negative); Leukocyte Esterase Ur Negative LEU/UL (Negative); Nitrate Urine Negative (Negative); Protein Urine Negative (Negative); Urobilinogen Urine 0.2 mg/dL (0.2-1.0)
--- NOTE | 2024-01-22 22:20 | PC.NURSE ---
patient returned to room from imaging. EKG being completed at this time
[2024-01-22 22:21] LABS: Amphetamine Screen Urine Negative (Negative); Barbiturate Screen Urine Negative (Negative); Benzodiazepines Screen Urine Negative (Negative); Cannabinoid Screen Urine Negative (Negative); Cocaine Screen Urine Negative (Negative); Methadone Screen Urine Negative (Negative); Opiate Screen Urine Negative (Negative); Phencyclidine Screen Urine Negative (Negative)
--- NOTE | 2024-01-22 22:22 | PC.NURSE ---
lab at the bedside
[2024-01-22 22:28] LABS: Basophils Absolute Auto 0.04 K/mm3 (0.00-0.10); Basophils Percent Auto 0.5 % (0.0-1.0); Eosinophils Absolute Auto 0.18 K/mm3 (0.02-0.50); Eosinophils Percent Auto 2.3 % (1.0-6.0); Hematocrit 39.8 % (40.0-54.0); Hemoglobin 13.1 g/dL (14.0-18.0); Immature Granulocyte Absolute 0.02 K/mm3 (0.00-0.00); Immature Granulocyte Percent A 0.3 % (0.0-0.0); Lymphocytes Percent Auto 43.9 % (18.0-42.0); Mean Corpuscular HGB Conc 32.9 g/dL (32-36); Mean Platelet Volume 10.1 fl (8.7-11.0); Monocytes Absolute Auto 0.61 K/mm3 (0.10-0.90); Monocytes Percent Auto 7.6 % (2.0-11.0); Neutrophils Absolute Auto 3.63 K/mm3 (1.70-7.20); Neutrophils Percent Auto 45.4 % (50.0-70.0); Platelet Count Result 210 K/mm3 (150-420); Red Blood Count 4.68 M/mm3 (4.70-6.10); Red Cell Distribution Width 12.4 % (11.6-14.4)
[2024-01-22 22:40] VITALS: BP 111/87; PULSE 66; RESP 18; O2SAT 97
[2024-01-22 22:47] LABS: Alanine Aminotransferase 75 U/L (16-63); Albumin Level 3.8 g/dL (3.4-5.0); Alkaline Phosphatase 196 U/L (46-116); Anion Gap 6 mmol/L (4-12); Aspartate Amino Transferase 37 U/L (15-37); Bilirubin,Total 0.3 mg/dL (0.00-1.00); Blood Urea Nitrogen 4 mg/dL (7-18); Calcium 8.7 mg/dL (8.5-10.1); Carbon Dioxide 28 mmol/L (21-32); Chloride 98 mmol/L (98-108); Estimated CRCL calculation 136 ml/min; Estimated Glomerular Filt Rate > 60; Ethanol < 3 mg/dL (0-6); Glucose 100 mg/dL (70-99); Osmolality Calculated 270 mOsm/kg (285-295); Potassium 3.4 mmol/L (3.5-5.1); Sodium 132 mmol/L (136-145); Total Protein 6.1 g/dL (6.4-8.2)
[2024-01-22 22:48] LABS: Troponin I 5.2 ng/L (0.00-60.4)
[2024-01-22] MEDS: POTASSIUM CHLORIDE 20 MEQ ER TABLET PO (22:58)
[2024-01-22 23:08] VITALS: BP 125/75; PULSE 62; RESP 18; O2SAT 99
== END 2024-01-22 23:09 | disposition home or self-care (01) ==
PROVIDERS: Emergency Provider Emergency Medicine; PCP Family Medicine
DX: H81.10 Benign paroxysmal vertigo, unspecified ear (principal); H10.31 Unspecified acute conjunctivitis, right eye; R94.5 Abnormal results of liver function studies; F17.210 Nicotine dependence, cigarettes, uncomplicated; Z79.899 Other long term (current) drug therapy
CPT/HCPCS: 36415; 70450; 71046; 80053; 80307; 81003; 84484; 85025; 93005; 99284; A9270

== ENCOUNTER 2024-02-02 08:00 | Outpatient (CLI) | payer OTHER, SELFPAY ==
--- NOTE | ~2024-02-02 | US_ITS ---
COMPLETE ABDOMINAL ULTRASOUND Ordering provider: Harpal CatesMD History: . ABNORMAL LIVER ENZYMES . Comparison: No FINDINGS: LIVER: Normal size. Fat infiltration is noted. No focal hepatic lesions or perihepatic fluid collecti ons are identified. Normal flow of the portal vein. GALLBLADDER: Cholelithiasis. No evidence for sludge, gallbladder wall thickening or pericholecystic f luid collections. A negative sonographic Quesada's sign was noted. BILIARY DUCTS: No evidence for intra or extrahepatic biliary dilation. Common bile duct measures 2.2 mm in diameter which is within normal limits. PANCREAS: Normal echotexture and size. FREE FLUID: None. IMPRESSION: Fat infiltration of the liver. Cholelithiasis. No evidence of cholecystitis. Reviewed, dictated and finalized at location A.
== END 2024-02-02 08:01 | disposition home or self-care (01) ==
LOC: CHSIMG 08:03
PROVIDERS: PCP Family Medicine; Visit Provider Family Medicine
DX: R74.8 Abnormal levels of other serum enzymes (principal); K76.0 Fatty (change of) liver, not elsewhere classified; K80.20 Calculus of gallbladder without cholecystitis without obstruction
CPT/HCPCS: 76705

== ENCOUNTER 2024-02-08 09:47 | Outpatient (CLI) | payer OTHER, SELFPAY ==
--- NOTE | ~2024-02-08 | NM_ITS ---
EXAMINATION: NM hepatobiliary w pharm DATE: 02/08/2024 11:45 INDICATION: Several months of abdominal pain COMPARISON: None. TECHNIQUE: 5.8 mCi Tc-99m mebrofenin (Choletec) was administered intravenously. Scintigraphic images of the abdomen were obtained for one hour. 1.4 mcg sincalide (Kinevac) was administered by slow intr avenous infusion, and imaging was continued for 30 minutes. Gallbladder ejection fraction was calcula zully by the technologist. FINDINGS: There is normal clearance of radiotracer from the blood pool. There is homogeneous tracer uptake by t he liver. Activity progresses to the gallbladder and bowel. The gallbladder ejection fraction (GBEF) is 83% (normal 10-90%, but most patient with gallbladder dysfunction have GBEF < 35% which does over lap with the normal range). IMPRESSION: 1. Normal hepatobiliary scan Reviewed, dictated and finalized at location B.
== END 2024-02-08 09:48 | disposition home or self-care (01) ==
LOC: CHSIMG 09:48
PROVIDERS: PCP Family Medicine; Visit Provider Family Medicine
DX: K82.8 Other specified diseases of gallbladder (principal)
CPT/HCPCS: 78227; A9537; J2805

== ENCOUNTER 2024-03-02 15:44 | Emergency (ER) | payer OTHER, SELFPAY ==
[2024-03-02 15:44] VITALS: BP 124/104; PULSE 70; RESP 16; TEMP 36.8; O2SAT 98
--- NOTE | 2024-03-02 15:47 | ED.ABDPAIN ---
HPI - Abdominal Pain General Chief Complaint: Abdominal Pain Stated Complaint: abd pain Time Seen by Provider: 03/02/24 15:46 Source: patient Mode of arrival: ambulatory Limitations: no limitations History of Present Illness HPI narrative: 28-year-old male with a history of schizophrenia, seizures, hepatic steatosis, dyslipidemia,gallstones with recurrent right upper quadrant abdominal pain presents to the ED with a 30 minute history of -- right upper quadrant abdominal pain which radiates to the right shoulder. No fever or chills. No nausea /vomiting. Patient has a history of recurrent right upper quadrant abdominal pains and was referred to the surgeon. MD elicited complaint: abdominal pain Pertinent past history: other ( Gallstones) Onset (ago): minute(s) ( 30 minutes) Pain Consistency: intermittent Location: RUQ Severity: mild Pain scale (0-10): 3 Quality: cramping Radiation: other ( right shoulder) Exacerbating factors: nothing Relieving factors: nothing Associated symptoms: denies other symptoms Related Data Home Medications Medication Instructions Recorded Confirmed risperidone 2 mg tablet (Risperdal) 4.5 mg PO HS 05/20/19 03/02/24 rosuvastatin 5 mg tablet (Crestor) 5 mg PO DAILY 12/16/19 03/02/24 clonidine HCl 0.1 mg tablet 0.1 mg PO BID 03/30/22 03/02/24 paliperidone palmitate 156 mg/mL 156 mg IM MONTHLY 06/08/23 03/02/24 intramuscular syringe (Invega Sustenna) trazodone 150 mg tablet 150 mg PO HS 01/22/24 03/02/24 Allergies Allergy/AdvReac Type Severity Reaction Status Date / Time amoxicillin Allergy Rash Verified 03/02/24 15:48 Review of Systems Review of Systems: All systems reviewed & are unremarkable except as noted in HPI and below Constitutional: Constitutional: Reports as per HPI and Reports no additional constitutional complaints Eyes: Eyes: Reports as per HPI and Reports no additional eye complaints ENT: Reports system reviewed and no additional complaints, except as documented and Reports as per HPI Cardiovascular: Cardiovascular: Reports as per HPI and Reports no additional cardiovascular complaints Respiratory: Respiratory: Reports as per HPI and Reports no additional respiratory complaints Gastrointestinal: Gastrointestinal: Reports as per HPI, Reports no additional gastrointestinal complaints and Reports abdominal pain Comments: right upper quadrant abdominal pain with right shoulder pain. Genitourinary: Genitourinary: Reports no additional male genitourinary complaints Musculoskeletal: Musculoskeletal: Reports no additional musculoskeletal complaints and Reports as per HPI Integumentary/Breasts: Skin/Breast: Reports system reviewed and no additional complaints, except as docu and Reports as per HPI Neurologic: Reports system reviewed and no additional complaints, except as documented and Reports as per HPI Psychiatric: Psychiatric: Reports no additional psychiatric complaints and Reports as per HPI Endocrine: Endocrine: Reports no additional endocrine complaints and Reports as per HPI Hematologic/Lymphatic: Hematologic/Lymphatic: Reports no additional hematologic/lymphatic complaints and Reports as per HPI Allergic/Immunologic: Allergic/Immunologic: Reports no additional allergic/immunologic complaints and Reports as per HPI PMFSH Past Medical History Medical History Depression Depression High cholesterol History of seizure Schizophrenia Seizure disorder Surgical History Surgical History Hx of tonsillectomy S/P excision of lipoma Right forearm 2.5x2.7cm 02/25/21 Left anterior chest 2.1x3.2cm 02/25/21 Family History Family History Mother High cholesterol Sibling Seizure disorder Grandparent Diabetes mellitus Cerebrovascular accident Cancer Social History Social History (Re
[2024-03-02 16:00] VITALS: BP 119/77; PULSE 69; O2SAT 97
[2024-03-02 16:16] LABS: Basophils Absolute Auto 0.04 K/mm3 (0.00-0.10); Basophils Percent Auto 0.5 % (0.0-1.0); Eosinophils Absolute Auto 0.22 K/mm3 (0.02-0.50); Eosinophils Percent Auto 2.8 % (1.0-6.0); Hematocrit 39.6 % (40.0-54.0); Hemoglobin 13.2 g/dL (14.0-18.0); Immature Granulocyte Absolute 0.04 K/mm3 (0.00-0.00); Immature Granulocyte Percent A 0.5 % (0.0-0.0); Lymphocytes Absolute Auto 2.59 K/mm3 (1.10-4.50); Lymphocytes Percent Auto 33.4 % (18.0-42.0); Mean Corpuscular HGB Conc 33.3 g/dL (32-36); Mean Corpuscular Hemoglobin 27.8 pg (27.0-31.0); Mean Corpuscular Volume 83.5 fL (78.0-102.0); Neutrophils Absolute Auto 4.16 K/mm3 (1.70-7.20); Neutrophils Percent Auto 53.8 % (50.0-70.0); Platelet Count Result 217 K/mm3 (150-420); Red Blood Count 4.74 M/mm3 (4.70-6.10); Red Cell Distribution Width 12.5 % (11.6-14.4); White Blood Count 7.8 K/mm3 (4.8-10.8)
[2024-03-02 16:28] LABS: INR 1.1; Prothrombin Time 12.3 Seconds (9.50-12.1)
--- NOTE | 2024-03-02 16:28 | PC.NURSE ---
PT IS LYING ON STRETCHER WATCHING TV WITHOUT DISTRESS. MOTHER HAS ARRIVED. PT HAS PROVIDED URINE SPECIMEN. PT IS AWAITING RESULTS. WILL CONTINUE TO MONITOR.
[2024-03-02 16:29] LABS: Add Urine Microscopic? NO; Appearance Urine Clear (Clear); Bilirubin Urine Negative (Negative); Blood Urine Negative (Negative); Color Urine Light Yellow (Yellow); Glucose Urine UA Negative (Negative); Ketones Urine Negative (Negative); Leukocyte Esterase Ur Negative LEU/UL (Negative); Nitrate Urine Negative (Negative); Protein Urine Negative (Negative); Specific Grav Ur 1.015 (1.010-1.020); Urobilinogen Urine 0.2 mg/dL (0.2-1.0)
[2024-03-02 16:32] LABS: Alanine Aminotransferase 82 U/L (16-63); Albumin Level 3.6 g/dL (3.4-5.0); Alkaline Phosphatase 220 U/L (46-116); Anion Gap 6 mmol/L (4-12); Aspartate Amino Transferase 52 U/L (15-37); Bilirubin,Total 0.3 mg/dL (0.00-1.00); Blood Urea Nitrogen 4 mg/dL (7-18); Calcium 8.6 mg/dL (8.5-10.1); Carbon Dioxide 30 mmol/L (21-32); Chloride 106 mmol/L (98-108); Estimated CRCL calculation 131 ml/min; Estimated Glomerular Filt Rate > 60; Glucose 121 mg/dL (70-99); Lipase 22 U/L (16-77); Osmolality Calculated 291 mOsm/kg (285-295); Potassium 3.7 mmol/L (3.5-5.1); Sodium 142 mmol/L (136-145); Total Protein 6.2 g/dL (6.4-8.2)
[2024-03-02 16:35] LABS: Lactic Acid Reflex 0.9 mmol/L (0.4-2.0)
[2024-03-02 16:50] LABS: Troponin I 4.6 ng/L (0.00-60.4)
[2024-03-02 17:21] VITALS: BP 122/90; PULSE 65; RESP 14; O2SAT 100
== END 2024-03-02 17:21 | disposition home or self-care (01) ==
PROVIDERS: Emergency Provider Internal Medicine Critical Care Medicine; PCP Family Medicine
DX: K80.20 Calculus of gallbladder without cholecystitis without obstruction (principal); F17.200 Nicotine dependence, unspecified, uncomplicated; Z79.899 Other long term (current) drug therapy
CPT/HCPCS: 36415; 80053; 81003; 83605; 83690; 84484; 85025; 85610; 99283

== ENCOUNTER 2024-03-06 22:14 | Emergency (ER) | payer OTHER, SELFPAY ==
[2024-03-06 22:15] VITALS: BP 128/77; PULSE 64; RESP 18; TEMP 36.8; O2SAT 98
--- NOTE | 2024-03-06 22:20 | ED.GENADULT ---
HPI - General Adult General Chief complaint: Psychiatric Symptoms Stated complaint: psychiatric symptoms Time Seen by Provider: 03/06/24 22:19 Source: patient Mode of arrival: ambulatory Limitations: no limitations History of Present Illness HPI narrative: 28-year-old white history of schizophrenia anxiety depression male thinking about suicide without any plan. mother called Mental Health at [facility] and was told to come the emergency room for evaluation. mother states he has been more quiet and reclusive and went up to her and said he wanted some help. Patient says he is thinking of hurting himself but does not have a plan. Otherwise he has been eating and drinking voiding and stooling fine without fever cough runny nose sore throat problems walking talking seeing or hearing. He denies hearing voices. He says he drinks alcohol but not lately. Denies illicit drug use. Oliver Related Data Home Medications Medication Instructions Recorded Confirmed risperidone 2 mg tablet (Risperdal) 4.5 mg PO HS 05/20/19 03/07/24 rosuvastatin 5 mg tablet (Crestor) 5 mg PO DAILY 12/16/19 03/07/24 clonidine HCl 0.1 mg tablet 0.1 mg PO BID 03/30/22 03/07/24 paliperidone palmitate 156 mg/mL 156 mg IM MONTHLY 06/08/23 03/07/24 intramuscular syringe (Invega Sustenna) trazodone 150 mg tablet 150 mg PO HS 01/22/24 03/07/24 Allergies Allergy/AdvReac Type Severity Reaction Status Date / Time amoxicillin Allergy Rash Verified 03/07/24 04:02 Review of Systems Review of Systems: All systems reviewed & are unremarkable except as noted in HPI and below PMFSH Past Medical History Medical History Depression Depression High cholesterol History of seizure Schizophrenia Seizure disorder Surgical History Surgical History Hx of tonsillectomy S/P excision of lipoma Right forearm 2.5x2.7cm 02/25/21 Left anterior chest 2.1x3.2cm 02/25/21 Family History Family History Mother High cholesterol Sibling Seizure disorder Grandparent Diabetes mellitus Cerebrovascular accident Cancer Social History Social History Smoking status: Current every day smoker Alcohol intake: current Alcohol use details: Occasional Substance use: never Substance use type: does not use Living arrangements: with family Occupation/Education: unemployed Additional occupation/education comments: disabled Gender identity (if verbalized by the patient): Male Sexual Orientation (if Verbalized by the Patient): Straight or Heterosexual Spiritual care concerns: No Exam Narrative: Soft spoken 28 you white male patient with no apparent distress.? Head normocephalic, atraumatic.? Eyes conjunctiva pink sclera nonicteric.? Extraocular movements are intact.? Ears externally normal.? Oropharynx is clear with moist mucous membranes without exudates.? Neck is supple nontender no lymphadenopathy.? Back is nontender.? Lungs are clear.? Heart is regular rate and rhythm without murmurs gallops or rubs.? Chest wall nontender. Abdomen is soft and nontender no hepatosplenomegaly or masses no CVA tenderness no abdominal bruits.? Extremities no cyanosis clubbing or edema.? Skin is warm and dry without rashes or lesions.? Neurological patient is alert and oriented x4.? Motor and sensory grossly intact.? Gait is normal. Course Vital Signs Vital signs: Vital Signs Temperature 36.8 C 03/06/24 22:15 Pulse Rate 64 03/06/24 22:15 Respiratory Rate 18 03/06/24 22:15 Blood Pressure 128/77 03/06/24 22:15 Pulse Oximetry 98 03/06/24 22:15 Oxygen Delivery Room Air 03/06/24 22:15 Temperature 36.6 C 03/07/24 04:23 Pulse Rate 67 03/07/24 04:23 Respiratory Rate 18 03/07/24 04:23 Blood Pressure 117/78 02/22
--- NOTE | 2024-03-06 22:29 | PC.NURSE ---
pt aware urine specimen is needed pt unable to urinate at this time
--- NOTE | 2024-03-06 22:30 | PC.NURSE ---
when talking with the patient, he states that he doesn't get out of the house much, doesn't have any friends, hangs out with his new puppy, that seems to help with his anxiety and depression. Patient further states that he goes to the library a lot as something to do. Patient does not currently have a job. Mother works a lot right now, so patient has been spending more time training his new puppy at home.
[2024-03-06 23:09] LABS: Hematocrit 40.9 % (40.0-54.0); Mean Corpuscular HGB Conc 34.2 g/dL (32-36); Mean Corpuscular Hemoglobin 28.2 pg (27.0-31.0); Mean Corpuscular Volume 82.3 fL (78.0-102.0); Mean Platelet Volume 10.2 fl (8.7-11.0); Platelet Count Result 214 K/mm3 (150-420); Red Blood Count 4.97 M/mm3 (4.70-6.10); Red Cell Distribution Width 12.4 % (11.6-14.4)
[2024-03-06 23:19] LABS: Alanine Aminotransferase 79 U/L (16-63); Albumin Level 4.1 g/dL (3.4-5.0); Alkaline Phosphatase 239 U/L (46-116); Amphetamine Screen Urine Negative (Negative); Anion Gap 9 mmol/L (4-12); Aspartate Amino Transferase 41 U/L (15-37); Benzodiazepines Screen Urine Negative (Negative); Bilirubin,Total 0.4 mg/dL (0.00-1.00); Blood Urea Nitrogen 3 mg/dL (7-18); Calcium 9.2 mg/dL (8.5-10.1); Cannabinoid Screen Urine Negative (Negative); Carbon Dioxide 29 mmol/L (21-32); Chloride 105 mmol/L (98-108); Cocaine Screen Urine Negative (Negative); Estimated CRCL calculation 119 ml/min; Estimated Glomerular Filt Rate > 60; Glucose 101 mg/dL (70-99); Methadone Screen Urine Negative (Negative); Opiate Screen Urine Negative (Negative); Osmolality Calculated 292 mOsm/kg (285-295); Phencyclidine Screen Urine Negative (Negative); Potassium 3.6 mmol/L (3.5-5.1); Salicylate 3.2 mg/dL (2.8-20.0); Sodium 143 mmol/L (136-145); Total Protein 7.1 g/dL (6.4-8.2)
[2024-03-06 23:20] LABS: Acetaminophen < 2 ug/mL (10-30); Ethanol < 3 mg/dL (0-6)
[2024-03-07 00:06] LABS: SARS-CoV-2 RNA PCR Negative (Negative)
[2024-03-07 00:08] LABS: Influenza A QL RT-PCR Negative (Negative); Influenza B QL RT-PCR Negative (Negative); RSV RNA, RT-PCR Negative (Negative)
[2024-03-07 01:11] VITALS: BP 127/79; PULSE 62; RESP 18; TEMP 36.8; O2SAT 96
[2024-03-07 04:23] VITALS: BP 117/78; PULSE 67; RESP 18; TEMP 36.6; O2SAT 98
== END 2024-03-07 04:48 | disposition home or self-care (01) ==
PROVIDERS: Emergency Provider Emergency Medicine; PCP Family Medicine
DX: F20.9 Schizophrenia, unspecified (principal); F32.A Depression, unspecified; F17.200 Nicotine dependence, unspecified, uncomplicated; Z79.899 Other long term (current) drug therapy; Z20.822 Contact with and (suspected) exposure to COVID-19
CPT/HCPCS: 36415; 80053; 80143; 80179; 80307; 82077; 85027; 87637; 99284

== ENCOUNTER 2024-06-14 19:35 | Emergency (ER) | payer OTHER, SELFPAY ==
--- NOTE | 2024-06-14 19:43 | ED_ITS ---
HPI - Psych General Chief Complaint: Psychiatric Symptoms Stated Complaint: Anxiety/Depressed Time Seen by Provider: 06/14/24 19:43 Source: patient and family (mother) Mode of arrival: ambulatory Limitations: no limitations History of Present Illness HPI Narrative: 28 year old male is brought to the Emergency Department by mother. Patient states he is anxious and depressed. Started an hour ago. States he has thoughts about hurting himself, but no plan. Mother states he just stays in his room all the time. Has not seen his psychiatrist recently, but is scheduled to see in a week. MD complaint: suicidal ideation Onset (ago): hour(s) (1) Relieving factors: none Exacerbating factors: none Associated psychiatric symptoms: depression and suicidal ideation Related Data Home Medications ?Medication ?Instructions ?Recorded ?Confirmed ?Last Taken ?Type risperidone 2 mg tablet (Risperdal) 4.5 mg PO HS 05/20/19 06/14/24 03/06/24 History rosuvastatin 5 mg tablet (Crestor) 5 mg PO DAILY 12/16/19 06/14/24 03/06/24 History clonidine HCl 0.1 mg tablet 0.1 mg PO BID 03/30/22 06/14/24 03/06/24 History paliperidone palmitate 156 mg/mL 156 mg IM MONTHLY 06/08/23 06/14/24 03/06/24 History intramuscular syringe (Invega Sustenna) trazodone 150 mg tablet 150 mg PO HS 01/22/24 06/14/24 03/06/24 History Allergies Allergy/AdvReac Type Severity Reaction Status Date / Time amoxicillin Allergy Rash Verified 06/14/24 20:14 Review of Systems 2 Review of Systems: All systems reviewed & are unremarkable except as noted in HPI and below Constitutional: Constitutional: Reports as per HPI, Denies chills and Denies fever(s) Eyes: Eyes: Reports as per HPI ENT: Reports system reviewed and no additional complaints, except as documented Cardiovascular: Cardiovascular: Reports as per HPI and Denies chest pain Respiratory: Respiratory: Reports as per HPI, Denies chest congestion and Denies dyspnea Gastrointestinal: Gastrointestinal: Reports as per HPI, Denies abdominal pain, Denies diarrhea, Denies nausea and Denies vomiting Genitourinary: Genitourinary: Reports no additional male genitourinary complaints Musculoskeletal: Musculoskeletal: Reports no additional musculoskeletal complaints Integumentary/Breasts: Skin/Breast: Reports system reviewed and no additional complaints, except as docu Neurologic: Reports system reviewed and no additional complaints, except as documented Psychiatric: Psychiatric: Reports no additional psychiatric complaints, Reports anxiety, Reports depression and Reports suicidal ideation Endocrine: Endocrine: Reports no additional endocrine complaints Hematologic/Lymphatic: Hematologic/Lymphatic: Reports no additional hematologic/lymphatic complaints Allergic/Immunologic: Allergic/Immunologic: Reports no additional allergic/immunologic complaints PMFSH Past Medical History Medical History Depression Seizure disorder High cholesterol History of seizure Schizophrenia Depression Surgical History Surgical History S/P excision of lipoma Right forearm 2.5x2.7cm 02/25/21 Left anterior chest 2.1x3.2cm 02/25/21 Hx of tonsillectomy Family History Family History Mother High cholesterol Sibling Seizure disorder Grandparent Diabetes mellitus Cerebrovascular accident Cancer Social History Social History Smoking status: Current every day smoker Alcohol intake: current Alcohol use details: Occasional Substance use: never Substance use type: does not use Living arrangements: with family Occupation/Education: unemployed Additional occupation/education comments: disabled Gender identity (if verbalized by the patient): Male Sexual Orientation (if Verbalized by the Patient): Straight or Heterosexual Spiritual care concerns: No Exam 2 Const: General: no acute distress and alert Nutritional Appearance: well nourished Orientation/consciousness: patient oriented x3 Limitations: no limitations HENMT: Head: normal to inspection Ears: external ears normal F lalo/Nose/Sinus: Normal external nose present Face and sinus: normal facial exam Mouth: Yes Normal oral and palatal mucosa present Throat: posterior oropharynx normal Eyes: Conjunctivae: conjunctivae normal Pupils: Equal, round and reactive pupils present EOM: EOMs intact bilaterally Direct Ophthalmoscopy: no photophobia Neck: Neck: normal visual inspection and no meningeal signs Chest: Chest palpation & inspection: normal inspection of the chest Resp: Effort & Inspection: normal respiratory effort Auscultation: clear to auscultation bilaterally Cardio: Rate: regular rate Rhythm: regular rhythm GI: Inspection: non-distended GI Palp: Yes Soft to palpation and No Tenderness to palpation present (GI) Auscultation: normal bowel sounds : General: Yes bladder normal to palpation Back/Spine/Pelvis: Back: no CVA tenderness Skin: General skin exam: normal color Rashes: no rashes Neuro: General: patient oriented x3 Gait exam (Neuro): Normal gait present Other: grossly normal Extrem: General: normal to inspection and no clubbing, cyanosis or edema Psych: Affect: Sad affect present Course Course Emergency Course: 28 y/o male presents to the ED with mother c/o feeling anxious, depressed and some suicidal ideation. PE: no acute findings CBC: H/H 13.5/40.6, Plt 228; wbc 6.1 with 48 S, 37 L, 10 M CMP: Na 145, K 4.2, Cl 106, CO2 29, Glc 89, BUN 7, Cr 0.9; LFT's AST 50, ALT 79, AlkP 251 TSH: 1.24 Acetaminophen: <2 ASA: 2.1 UA: unremarkable UDS: negative Etoh: <3 Covid /Influenza /RSV: *patient is stable and does not appear to be in any acute distress. Mother is present sitting with him. I do not believe he needs an additional sitter at this time. *patient is medically cleared for Mental Health evaluation, treatment and disposition (0) Patient has been evaluated by Mental Health and he is being deflected home. He has safe home with mother. He will be followed up face to face tomorrow. Patient and mother agreeable. Instructions Vital Signs Vital signs: Vital Signs Temperature 36.4 C 06/14/24 19:44 Pulse Rate 72 06/14/24 19:44 Respiratory Rate 16 06/14/24 19:44 Blood Pressure 143/93 H 06/14/24 19:44 Pulse Oximetry 98 06/14/24 19:44 Oxygen Delivery Room Air 06/14/24 19:44 Temperature 36.4 C 06/14/24 19:44 Pulse Rate 72 06/14/24 19:44 Respiratory Rate 16 06/14/24 19:44 Blood Pressure 143/93 H 06/14/24 19:44 Pulse Oximetry 98 06/14/24 19:44 Oxygen Delivery Room Air 06/14/24 19:44 [facility] - Psych Lab Data 06/14/24 20:17 06/14/24 20:17 Labs: Lab Results 06/14/24 06/14/24 06/14/24 Range/Units 20:17 20:18 20:52 WBC 6.1 (4.8-10.8) K/mm3 RBC 4.89 (4.70-6.10) M/mm3 Hgb 13.5 L (14.0-18.0) g/dL Hct 40.6 (40.0-54.0) % MCV 83.0 (78.0-102.0) fL MCH 27.6 (27.0-31.0) pg MCHC 33.3 (32-36) g/dL RDW 12.6 (11.6-14.4) % Plt Count 228 (150-420) K/mm3 MPV 9.5 (8.7-11.0) fl Immature Gran % (Auto) 0.3 H (0.0-0.0) % Neut % (Auto) 48.1 L (50.0-70.0) % Lymph % (Auto) 37.4 (18.0-42.0) % Jackson % (Auto) 10.3 (2.0-11.0) % Eos % (Auto) 3.1 (1.0-6.0) % Baso % (Auto) 0.8 (0.0-1.0) % Lymph # (Auto) 2.29 (1.10-4.50) K/mm3 Jackson # (Auto) 0.63 (0.10-0.90) K/mm3 Eos # (Auto) 0.19 (0.02-0.50) K/mm3 Baso # (Auto) 0.05 (0.00-0.10) K/mm3 Abs Immat Gran (auto) 0.02 H (0.00-0.00) K/mm3 Absolute Neuts (auto) 2.95 (1.70-7.20) K/mm3 Absolute Nucleated RBC 0.00 (0.00-0.00) K/mm3 Nucleated RBC % 0.0 (0-0.0) % Sodium 145 (136-145) mmol/L Potassium 4.2 (3.5-5.1) mmol/L Chloride 106 (98-108) mmol/L Carbon Dioxide 29 (21-32) mmol/L Anion Gap 10 (4-12) mmol/L BUN 7 (7-18) mg/dL Creatinine 0.90 (0.70-1.30) mg/dL Estim Creat Clear Calc 110 ml/min Estimated GFR > 60 (59 - ) Glucose 89 (70-99) mg/dL Calculated Osmolality 297 H (285-295) mOsm/kg Calcium 8.9 (8.5-10.1) mg/dL Total Bilirubin 0.2 (0.00-1.00) mg/dL AST 50 H (15-37) U/L ALT 79 H (16-63) U/L Alkaline Phosphatase 251 H (46-116) U/L Total Protein 6.4 (6.4-8.2) g/dL Albumin 3.9 (3.4-5.0) g/dL TSH 1.24 (0.36-3.74) uIU/mL Urine Color Light yellow (Yellow) Urine Appearance Clear (Clear) Urine pH 7.5 (5.0-8.0) Ur Specific [place] 1.010 (1.010-1.020) Urine Protein Negative (Negative) Urine Glucose (UA) Negative (Negative) Urine Ketones Negative (Negative) Ur Blood (Man) Negative (Negative) Urine Nitrate Negative (Negative) Urine Bilirubin Negative (Negative) Urine Urobilinogen 0.2 (0.2-1.0) mg/dL Ur Leukocyte Esterase Negative (Negative) Salicylates 2.1 L (2.8-20.0) mg/dL Urine Opiates Screen Negative (Negative) Urine Methadone Screen Negative (Negative) Acetaminophen < 2 L (10-30) ug/mL Ur Barbiturates Screen Negative (Negative) Ur Phencyclidine Scrn Negative (Negative) Ur Amphetamine Screen Negative (Negative) U Benzodiazepines Scrn Negative (Negative) Urine Cocaine Screen Negative (Negative) U Cannabinoids Screen Negative (Negative) Ethyl Alcohol < 3 (0-6) mg/dL Influenza A (RT-PCR) Negative (Negative) Influenza B (RT-PCR) Negative (Negative) RSV (RT-PCR) Negative (Negative) SARS-CoV-2 RNA (RT-PCR) Negative (Negative) Discharge Plan Discharge Clinical Impression: Anxiety, Suicidal ideation Depression Qualifiers: Depression Type: unspecified Qualified Code(s): F32.A - Depression, unspecified Patient Disposition: Home, Self-Care Condition: Stable Instructions: Depression (ED), Anxiety (ED), Suicide Prevention (ED) Additional Instructions: Continue home medications Follow up Mental Health tomorrow Follow up with your psychiatrist /counselor Patient Language: Upper Sorbian Prescriptions: No Action risperidone [Risperdal] 2 mg tablet 4.5 mg PO HS Patient Comments: patient out of medicine Invega Sustenna 156 mg/mL syringe 156 mg IM MONTHLY rosuvastatin [Crestor] 5 mg tablet 5 mg PO DAILY clonidine HCl 0.1 mg tablet 0.1 mg PO BID levetiracetam [Keppra] 500 mg tablet 500 mg PO BID Qty: 60 0RF trazodone 150 mg tablet 150 mg PO HS Follow-up/Referrals: Loan,MD Harpal [Primary Care Provider] - Time of Disposition: 23:23
[2024-06-14 19:44] VITALS: BP 143/93; PULSE 72; RESP 16; TEMP 36.4; O2SAT 98
--- NOTE | 2024-06-14 19:55 | PC.NURSE ---
PATIENT TAKEN DOWN TO BATHROOM TO CHANGE INTO PAPER SCRUBS. BELONGINGS PLACED INTO A PERSONAL BELONGINGS BAG AND PLACED INTO LOCKED ROOM. URINE TAKEN DOWN TO LAB. MOTHER WAS INFORMED THAT ALL PERSONAL ITEMS EX:PURSE, WOULD HAVE TO BE TAKEN OUT TO HER CAR. MOTHER VERBALIZED UNDERSTANDING
--- NOTE | 2024-06-14 20:06 | PC.NURSE ---
PATIENT IS CURRENTLY RESTING IN ROOM 5. WARM BLANKETS WERE GIVEN. SOCKS FOR HIS FEET GIVEN. MOTHER IS AT HIS SIDE. CALM AND COOPERATIVE.
--- NOTE | 2024-06-14 20:14 | PC.NURSE ---
LAB AT THE BEDSIDE
[2024-06-14 20:21] LABS: Basophils Absolute Auto 0.05 K/mm3 (0.00-0.10); Basophils Percent Auto 0.8 % (0.0-1.0); Eosinophils Absolute Auto 0.19 K/mm3 (0.02-0.50); Eosinophils Percent Auto 3.1 % (1.0-6.0); Hematocrit 40.6 % (40.0-54.0); Hemoglobin 13.5 g/dL (14.0-18.0); Immature Granulocyte Absolute 0.02 K/mm3 (0.00-0.00); Immature Granulocyte Percent A 0.3 % (0.0-0.0); Lymphocytes Absolute Auto 2.29 K/mm3 (1.10-4.50); Lymphocytes Percent Auto 37.4 % (18.0-42.0); Mean Corpuscular HGB Conc 33.3 g/dL (32-36); Mean Corpuscular Hemoglobin 27.6 pg (27.0-31.0); Mean Platelet Volume 9.5 fl (8.7-11.0); Monocytes Absolute Auto 0.63 K/mm3 (0.10-0.90); Monocytes Percent Auto 10.3 % (2.0-11.0); Neutrophils Absolute Auto 2.95 K/mm3 (1.70-7.20); Neutrophils Percent Auto 48.1 % (50.0-70.0); Platelet Count Result 228 K/mm3 (150-420); Red Blood Count 4.89 M/mm3 (4.70-6.10); Red Cell Distribution Width 12.6 % (11.6-14.4); White Blood Count 6.1 K/mm3 (4.8-10.8)
[2024-06-14 20:27] LABS: Add Urine Microscopic? NO; Appearance Urine Clear (Clear); Bilirubin Urine Negative (Negative); Blood Urine Negative (Negative); Color Urine Light Yellow (Yellow); Glucose Urine UA Negative (Negative); Ketones Urine Negative (Negative); Leukocyte Esterase Ur Negative (Negative); Nitrate Urine Negative (Negative); Protein Urine Negative (Negative); Urobilinogen Urine 0.2 mg/dL (0.2-1.0); pH Urine 7.5 (5.0-8.0)
[2024-06-14 20:39] LABS: Amphetamine Screen Urine Negative (Negative); Barbiturate Screen Urine Negative (Negative); Benzodiazepines Screen Urine Negative (Negative); Cannabinoid Screen Urine Negative (Negative); Cocaine Screen Urine Negative (Negative); Methadone Screen Urine Negative (Negative); Opiate Screen Urine Negative (Negative); Phencyclidine Screen Urine Negative (Negative)
[2024-06-14 20:46] LABS: Alanine Aminotransferase 79 U/L (16-63); Albumin Level 3.9 g/dL (3.4-5.0); Alkaline Phosphatase 251 U/L (46-116); Anion Gap 10 mmol/L (4-12); Aspartate Amino Transferase 50 U/L (15-37); Bilirubin,Total 0.2 mg/dL (0.00-1.00); Blood Urea Nitrogen 7 mg/dL (7-18); Calcium 8.9 mg/dL (8.5-10.1); Carbon Dioxide 29 mmol/L (21-32); Chloride 106 mmol/L (98-108); Estimated CRCL calculation 110 ml/min; Estimated Glomerular Filt Rate > 60; Glucose 89 mg/dL (70-99); Osmolality Calculated 297 mOsm/kg (285-295); Potassium 4.2 mmol/L (3.5-5.1); Sodium 145 mmol/L (136-145); Total Protein 6.4 g/dL (6.4-8.2)
[2024-06-14 20:48] LABS: Acetaminophen < 2 ug/mL (10-30); Ethanol < 3 mg/dL (0-6); Salicylate 2.1 mg/dL (2.8-20.0); Thyroid Stimulating Hormone 1.24 uIU/mL (0.36-3.74)
--- NOTE | 2024-06-14 20:54 | PC.NURSE ---
COVID SWAB TAKEN TO LAB. PATIENT IS RESTING ON STRETCHER WITH MOTHER AT HIS SIDE. CALM AND COOPERATIVE. BEING MONITORED VIA CAMERA
--- NOTE | 2024-06-14 21:29 | PC.NURSE ---
MOTHER TO THE DESK ASKING HOW MUCH LONGER IT IS GOING TO BE. PATIENT IS READY TO GO HOME. INFORMED HER THAT [employer] [place] HAS BEEN NOTIFIED. WAITING ON THEM TO COME AND EVALUATE PATIENT. PATIENT IS CALM AND COOPERATIVE. PATIENT BEING MONITORED VIA CAMERA IN THE ROOM
[2024-06-14 21:36] LABS: Influenza A QL RT-PCR Negative (Negative); Influenza B QL RT-PCR Negative (Negative); RSV RNA, RT-PCR Negative (Negative); SARS-CoV-2 RNA PCR Negative (Negative)
--- NOTE | 2024-06-14 22:45 | PC.NURSE ---
[facility] AT THE BEDSIDE
--- NOTE | 2024-06-14 23:28 | PC.NURSE ---
PERSONAL ITEMS RETURNED TO PATIENT
[2024-06-14 23:29] VITALS: BP 136/82; PULSE 76; RESP 18; O2SAT 99
--- OUTSIDE RECORDS SUMMARY | 2024-06-16 20:29 | XMS_ITS ---
Author Organization Unknown Address [address] [place] [phone] Phone Care Team Providers Care Crosscutter Rolled Glass Name Role Phone RACHELLE GUPTA Attending Unavailable HERLINDA Serrano Primary Unavailable Immunization Immunization Date Status Additional Notes Code Code System OPV 01/06/1996 Completed 02 CVX OPV 03/02/1996 Completed 02 CVX OPV 06/01/1996 Completed 02 CVX OPV 02/01/1997 Completed 02 CVX MMR 02/01/1997 Completed 03 CVX MMR 03/07/1998 Completed 03 CVX MMR 08/28/2000 Completed 03 CVX Hep B, adolescent or pediatric 01/06/1996 Completed 08 CVX Hep B, adolescent or pediatric 06/01/1996 Completed 08 CVX Hep B, adolescent or pediatric 08/28/2000 Completed 08 CVX IPV 08/28/2000 Completed 10 CVX IPV 03/11/2001 Completed 10 CVX Hib, unspecified formulation 03/07/1998 Completed 17 CVX DTaP 03/07/1998 Completed 20 CVX DTaP 08/28/2000 Completed 20 CVX DTaP 03/11/2001 Completed 20 CVX DTP-Hib 01/06/1996 Completed 22 CVX DTP-Hib 03/02/1996 Completed 22 CVX DTP-Hib 06/01/1996 Completed 22 CVX DTP-Hib 02/01/1997 Completed 22 CVX meningococcal C conjugate 12/18/2009 Completed 103 CVX Tdap 12/18/2009 Completed 115 CVX Results CBC W/ DIFF - Collect Date/T beny: 01/12/2024 09:03 [facility] ID: [id number] [place] [address], [phone] LOINC: 31957-8 Test Value Unit Reference Range Code Code System Flag WBC 6.5 10^3uL L=4.8 H=10.8 RBC 4.77 10^6uL L=4.60 H=6.20 HEMOGLOBIN 13.6 g/dL L=14.0 H=18.0 718-7 LOINC L HEMATOCRIT 40.0 VOL% L=42.0 H=52.0 4544-3 LOINC L MCV 83.9 fL L=80.0 H=94.0 MCH 28.5 pg L=27.0 H=32.0 MCHC 34.0 g/dL L=32.0 H=36.0 PLATELETS 190 10^3uL L=100 H=400 47500-5 LOINC RDW 13.0 % L=11.7 H=15.5 %GRAN 45.9 % L=40.0 H=70.0 35269-7 LOINC %LYMPH 40.3 % L=20.0 H=45.0 736-9 LOINC %MONO 10.1 % L=2.0 H=10.0 98781-0 LOINC H %EOS 2.9 % L=0.0 H=6.0 713-8 LOINC %BASO 0.6 % L=0.0 H=3.0 706-2 LOINC #NEUT 3.0 10^3uL L=1.9 H=7.6 36335-2 LOINC #LYMPH 2.6 10^3uL L=0.9 H=4.9 79151-3 LOINC #MONO 0.7 10^3uL L=0.1 H=0.9 55836-0 LOINC #EOS 0.2 10^3uL L=0.0 H=0.6 712-0 LOINC #BASO 0.04 10^3uL L=0.00 H=0.10 08500-3 LOINC #IM GRANS 0.0 10^3uL L=0.0 H=7.0 39409-3 LOINC %IM GRANS 0.2 % L=0.0 H=5.0 86553-1 LOINC %NRB 0.0 L=0.0 H=0.2 17368-8 LOINC #NRB 0.000 L=0.000 H=0.012 38427-1 LOINC MANUAL DIFF NOT INDICATED RBC MORPH NOT INDICATED COMPREHENSIVE METABOLIC PANE L - Collect Date/Time: 01/12/2024 09:03 [facility] ID: [id number] [address] [place], [place], [phone] LOINC: 44338-2 Test Value Unit Reference Range Code Code System Flag FASTING YES BUN 6 mg/dL L=7 H=20 3094-0 LOINC L CREATININE 0.70 mg/dL L=0.66 H=1.25 2160-0 LOINC GLUCOSE 62 mg/dL L=74 H=106 2345-7 LOINC L SODIUM 141 mmol/L L=132 H=144 2951-2 LOINC POTASSIUM 3.9 mmol/L L=3.5 H=5.1 2823-3 LOINC CHLORIDE 104 mmol/L L=98 H=107 2075-0 LOINC CO2 32.0 mmol/L L=22.0 H=30.0 2028-9 LOINC H ANION GAP 9 L=10 H=20 02324-9 LOINC L OSMOLALITY 288 mOs/kG L=280 H=296 87801-2 LOINC BUN/CREAT 8.6 3097-3 LOINC CALCIUM 9.4 mg/dL L=8.3 H=10.5 16952-1 LOINC AST 56 U/L L=15 H=46 1920-8 LOINC H ALT 63 U/L L=9 H=72 1742-6 LOINC ALKALINE PHOS 159 U/L L=38 H=126 6768-6 LOINC H TOTAL BILI 0.5 mg/dL L=0.2 H=1.3 1975-2 LOINC ALBUMIN 4.3 G/dL L=3.5 H=5.0 1751-7 LOINC TOTAL PROTEIN 6.5 g/L L=6.3 H=8.2 2885-2 LOINC A/G RATIO 2.0 03078-2 LOINC AGE 28 09331-9 LOINC eGFR NON-AFR 143 ml/min eGFR AFR AMER 173 ml/min HGB A1C -GLYCOHEMOGLOBIN - C ollect Date/Time: 01/12/2024 09:03 [facility] ID: [id number] [address] [place] [address], [phone] LOINC: 4548-4 Test Value Unit Reference Range Code Code System Flag HGBA1C 4.9 % 4548-4 LOINC LIPID PANEL - Collect Date/T beny: 01/12/2024 09:03 [facility] ID: [id number] [address] [place] [address], [phone] LOINC: 74178-7 Test Value Unit Reference Range Code Code System Flag FASTING YES CHOLESTEROL 96 mg/dL L=0 H=200 2093-3 LOINC TRIGLYCERIDE 70 mg/dL L=0 H=150 2571-8 LOINC HDL 50 mg/dL L=40 H=60 2084-9 LOINC LDL 33 mg/dL 2088-1 LOINC PROLACTIN - Collect Date/José e: 01/12/2024 09:03 [facility] ID: [id number] [address] [place] [address], [phone] LOINC: 2842-3 Test Value Unit Reference Range Code Code System Flag Prolactin 58.2 3.6-31.5 2842-3 LOINC H Social History Type Status Start Date End Date Code Code Syst em Smoking History Never smoker (Never Smoked) 826550590 SNOMED CT Sex Male Hospital Discharge Instructions Should you have any questions prior to discharge, please contact a member of your healthcare team. If you have left the hospital and have any questions, please contact your primary care physician. Reason For Referral No Data Found Plan of Treatment No Data Found Encounters Encounter Diagnosis Start Date Code Code Sys tem Other alf (current) drug therapy 01/12/2024 SNOMED-CT Personal Care Team Section Performer Name Performer Role Active Date Inactive RUTH Pollard PCP - Primary care physician 2022-03-06
--- OUTSIDE RECORDS SUMMARY | 2024-06-16 20:33 | XMS_ITS ---
Author Organization Unknown Address [address] [place] [phone] Phone Care Team Providers Care Plant Maintenance Mechanic Name Role Phone RACHELLE GUPTA Attending Unavailable [...] DIFF - Collect Date/T beny: 01/12/2024 09:03 [facility] ID: [id number] [address] [place], [place], [phone] LOINC: 21500-8 Test Value Unit Reference Range Code Code System Flag WBC 6.5 10^3uL L=4.8 H=10.8 RBC 4.77 10^6uL L=4.60 H=6.20 HEMOGLOBIN 13.6 g/dL L=14.0 H=18.0 718-7 LOINC L HEMATOCRIT 40.0 VOL% L=42.0 H=52.0 4544-3 LOINC L MCV 83.9 fL L=80.0 H=94.0 MCH 28.5 pg L=27.0 H=32.0 MCHC 34.0 g/dL L=32.0 H=36.0 PLATELETS 190 10^3uL L=100 H=400 78245-1 LOINC RDW 13.0 % L=11.7 H=15.5 %GRAN 45.9 % L=40.0 H=70.0 94456-0 LOINC %LYMPH 40.3 % L=20.0 H=45.0 736-9 LOINC %MONO 10.1 % L=2.0 H=10.0 12036-9 LOINC H %EOS 2.9 % L=0.0 H=6.0 713-8 LOINC %BASO 0.6 % L=0.0 H=3.0 706-2 LOINC #NEUT 3.0 10^3uL L=1.9 H=7.6 43671-4 LOINC #LYMPH 2.6 10^3uL L=0.9 H=4.9 29952-7 LOINC #MONO 0.7 10^3uL L=0.1 H=0.9 61510-1 LOINC #EOS 0.2 10^3uL L=0.0 H=0.6 712-0 LOINC #BASO 0.04 10^3uL L=0.00 H=0.10 19165-0 LOINC #IM GRANS 0.0 10^3uL L=0.0 H=7.0 21977-5 LOINC %IM GRANS 0.2 % L=0.0 H=5.0 62064-5 LOINC %NRB 0.0 L=0.0 H=0.2 23015-1 LOINC #NRB 0.000 L=0.000 H=0.012 22976-4 LOINC MANUAL DIFF NOT INDICATED RBC MORPH NOT INDICATED COMPREHENSIVE METABOLIC PANE L - Collect Date/Time: 01/12/2024 09:03 [facility] ID: [id number] [address] [place], [place], [phone] LOINC: 07613-2 Test Value Unit Reference Range Code Code [...] LOINC H ANION GAP 9 L=10 H=20 10379-7 LOINC L OSMOLALITY 288 mOs/kG L=280 H=296 27738-3 LOINC BUN/CREAT 8.6 3097-3 LOINC CALCIUM 9.4 mg/dL L=8.3 H=10.5 48861-7 LOINC AST 56 U/L L=15 H=46 1920-8 LOINC H ALT 63 U/L L=9 H=72 1742-6 LOINC ALKALINE PHOS 159 U/L L=38 H=126 6768-6 LOINC H TOTAL BILI 0.5 mg/dL L=0.2 H=1.3 1975-2 LOINC ALBUMIN 4.3 G/dL L=3.5 H=5.0 1751-7 LOINC TOTAL PROTEIN 6.5 g/L L=6.3 H=8.2 2885-2 LOINC A/G RATIO 2.0 32887-6 LOINC AGE 28 08716-5 LOINC eGFR NON-AFR 143 ml/min eGFR AFR AMER 173 ml/min HGB A1C -GLYCOHEMOGLOBIN - C ollect Date/Time: 01/12/2024 09:03 [facility] ID: [id number] [place], [place], [phone] LOINC: 4548-4 Test Value Unit Reference Range Code Code System Flag HGBA1C 4.9 % 4548-4 LOINC LIPID PANEL - Collect Date/T beny: 01/12/2024 09:03 [facility] ID: [id number] [place], [place], [phone] LOINC: 65244-8 Test Value Unit Reference Range Code Code System Flag FASTING YES CHOLESTEROL 96 mg/dL L=0 H=200 2093-3 LOINC TRIGLYCERIDE 70 mg/dL L=0 H=150 2571-8 LOINC HDL 50 mg/dL L=40 H=60 5-9 LOINC LDL 33 mg/dL 2088-1 LOINC PROLACTIN - Collect Date/José e: 01/12/2024 09:03 [facility] ID: [id number] [place], [place], [phone] LOINC: 2842-3 Test Value Unit Reference Range Code Code System Flag Prolactin 58.2 3.6-31.5 2842-3 LOINC H Social History Type Status Start Date End Date Code Code Syst em Smoking History Never smoker (Never Smoked) [id number] SNOMED CT Sex Male Hospital Discharge Instructions Should you have any questions prior to discharge, please contact a member of your healthcare team. If you have left the hospital and have any questions, please contact your primary care physician. Reason For Referral No Data Found Plan of Treatment No Data Found Encounters Encounter Diagnosis Start Date Code Code Sys tem Other mcc (current) drug therapy 01/12/2024 SNOMED-CT Personal Care Team Section Performer Name Performer Role Active Date Inactive RUTH Pollard PCP - Primary care physician 2022-03-06
--- OUTSIDE RECORDS SUMMARY | 2024-06-16 20:33 | XMS_ITS | Referral Summary ---
Author Organization [facility] al Address [address] [place] [address] Care Team Providers Care Bumboater Name Role Phone Robbin Shaikh MD Primary Care Provider Allergies Active Allergy Reactions Criticality Noted Date Comments Amoxicillin Rash Medium 08/16/2018 Medications benztropine (COGENTIN) 0.5 mg tabletIndication s:Parkinsonism Take 1 tablet (0.5 mg total) by mouth daily 30 tablet Active Additional Information Patient taking differently:0.5 mg oral2 times daily, Indications: Parkinsonism, Informant: Mother, Reported on 06/18/2021 risperiDONE (RisperDAL) 1 mg tabletIndication s:psychotic disorder Take 1 tablet (1 mg total) by mouth 2 (two) times a day 60 tablet Active cloNIDine (CATAPRES) 0.1 mg tabletIndication s:Agitation associated with Schizophrenia Take 1 tablet (0.1 mg total) by mouth nightly 30 tablet Active risperiDONE microspheres (RisperDAL CONSTA) 25 mg/2 mL injectionIndicat ions:Schizophren ia Inject 2 mL (25 mg total) into the muscle as instructed once for 1 dose Next due 03/19/20. 1 each Active Additional Information Patient taking differently:25 mg intramuscularEvery 14 days, Next due 03/19/20., Indications: Schizophrenia, Informant: Mother, Reported on 06/18/2021 ARIPiprazole (ABILIFY) 10 mg tabletIndication s:Schizophrenia Take 10 mg by mouth daily Active rosuvastatin (CRESTOR) 5 mg tabletIndication s:hyperlipidemia Take 5 mg by mouth every morning 021 Active chlorhexidine (PERIDEX) 0.12 % solution Apply 15 mL to the mouth or throat 2 (two) times a day 120 mL 022 Active LORazepam (ATIVAN) 0.5 mg tabletIndication s:Insomnia,anxie ty Take 1 tablet (0.5 mg total) by mouth every 8 (eight) hours as needed for anxiety (sleep) 20 tablet 024 Active Active Problems Problem Noted Date Diagnosed Date Abscess of mandible 06/13/2021 Nonintractable epilepsy without status epileptic us 06/12/2021 Overview (06/14/2021): Added automatically from request for surgery [id number] Scoliosis 06/12/2021 Overview (06/14/2021): Added automatically from request for surgery [id number] Weight loss 02/28/2020 Assessment & Plan (03/01/2020 3:17 PM CDT): - Pt has had approx 25 lbs wt loss over possible 4 months, etiology unclear possibly 2/2 psychosis - Initial BMI calculated based off pt's inaccurate reported height. BMI 19.31 - nutrition consult, double portions - W/up for possible causes - CTM weight ?? Unspecified psychosis not du e to a substance or known physiological condition 02/27/2020 Assessment & Plan (03/03/2020 6:24 AM CDT): Pt's psychiatric history is largely unclear as both pt and pt's mother are poor historians. Pt's mother endorses a prior diagnosis of schizophrenia with possible psychotic symptoms including disorganized thought and behavior, agitation, and possible AH. Mother endorses prior depressive episodes characterized by social isolation, decreased PO intake, and decreased speech. Mother also endorses prior decreased need for sleep, hyper-talkativity, and increased activity prior to disorganized/psychotic episodes. Pt was brought to OSH ED for concerns for bizarre behavior and agitation. Ddx is very broad but includes possible schizophrenia given bizarre, disorganized behavior, negative symptoms (decreased speech, poverty of content, blunted affect, and possible thought blocking, apathy, poor self care) and possible delusions, autism spectrum disorder (given pt's deficits in social communication and interaction, possible restricted interests), post-ictal psychosis (less likely), schizoaffective disorder, bipolar 2 disorder with psychotic features, or MDD with psychosis. Obtained history of pt's psychiatrist, who endorses diagnoses of unspecified psychotic disorder, ID, and communication disorder. No observed bizarre, disorganized behavior overnight which has improved with increased dose of Risperidone. No clear elicited delusions on exam; pt is very suggestible. Exam notable for decreased speech, poverty of content, blunted affect, and poor self care, consistent with possible negative symptoms of schizophrenia/primary psychotic disorder. Pt has been having adequate PO intake. Concerns due to pt's negative symptoms/ID pt was not eating due to complexity of meal preparation but unclear. No elicited delusions regarding this. Plan to load pt with Risperdal Consta due to very low dose of po Risperidone as pt has had 3 hospitalizations for psychosis this year alone with significant weight loss due to poor po intake/concern for worsening negative symptoms in the setting of medication noncompliance while at home. Placement at a mcc may not be possible and pt may return to mother's home. Mother struggled to enforce medication compliance as works days and nights etc. Pt agreeable to receiving HELTON. ?? - Continue VOLUNTARY hospitalization - Continue Risperidone 1 mg q BID - Plan to administer Risperdal Consta 25 mg IM on day of discharge. - Continue benztropine 0.5 mg q HS for possible EPS - Continue Clonidine 0.1 mg q HS for mood/agitation. - HIV, RPR, TSH all negative/wnl - For non-redirectable mild agitation, may offer Haldol 5 mg po q 6 hours PRN. - For severe agitation, administer Haldol 5 mg IM q 6 hours with Lorazepam 2 mg IM q 6 hours PRN. - Continue to work with SW regarding placement in mcc. ?? Code Status: Full Code Precautions: Suicide, elopement, assault Diet: Adult Diet Regular; Send on Disposables, Deliver tray to nursing, Professional System Administrator check DVT Prophylaxis: None as pt is ambulating at least TID Dispo: Anticipate unclear ?? Mild intellectual disability 02/27/2020 Mixed hyperlipidemia 08/16/2018 Assessment & Plan (03/02/2020 2:20 PM CDT): - Lipid panel wnl, A1c 5.0 - Given pt's recent significant wt loss (25 lbs in 4 months), will discontinue Rosuvastatin 5 mg q HS ? Communication disorder Social History Tobacco Use Types Packs/Day Years Used Date Smoking Tobacco: Never Smokeless Tobacco: Never Alcohol Use Standard Drinks/Week Comments Not Currently 0 (1 standard drink = 0.6 oz pur e alcohol) Social Connection and Isolat ion Panel [NHANES] Answer Date Recorded In a typical week, how many times do you talk on the phone with family, friends, or neighbors? Twice a week 02/27/2020 How often do you get togethe r with friends or relatives? More than three times a week 02/27/2020 How often do you attend chur ch or protestant services? Never 02/27/2020 Do you belong to any clubs o r organizations such as yazidism groups, unions, fraternal or athletic groups, or school groups? No 02/27/2020 How often do you attend meet ings of the clubs or organizations you belong to? Never 02/27/2020 Are you , , di vorced, , never , or living with a partner? Never 02/27/2020 AUDIT-C Answer Date Recorded Q1: How often do you have a drink containing alc ohol? Never 06/18/2021 Average Number of Drinks Not on file 022 Q3: How often do you have si x or more drinks on one occasion? Never 06/18/2021 Overall Financial Resource Strain (CARDIA) Answe r Date Recorded How hard is it for you to pa y for the very basics like food, housing, medical care, and heating? Not hard at all 02/27/2020 Hunger Vital Sign Answer Date Recorded Within the past 12 months, y ou worried that your food would run out before you got the money to buy more. Never true 02/27/20 20 Within the past 12 months, t he food you bought just didn't last and you didn't have money to get more. Never true 02/27/2020 PRAPARE - Transportation Answer Date Re corded In the past 12 months, has l ack of transportation kept you from medical appointments or from getting medications? No 09/2019 In the past 12 months, has l ack of transportation kept you from meetings, work, or from getting things needed for daily living? No 02/27/2020 Housing Stability Vital Sign Answer Lopez e Recorded In the last 12 months, was t here a time when you were not able to pay the mortgage or rent on time? No 02/27/2020 In the last 12 months, how many places have you lived? 1 02/27/2020 In the last 12 months, was t here a time when you did not have a steady place to sleep or slept in a custodial (including now)? No 02/27/2020 Personal Safety Answer Date Recorded Have you ever been in or are you currently in a harmful physical or emotional relationship or is someone making you feel afraid or unsafe? Denies 12/04/2023 Education Answer Date Recorded What is the highest level of school you have completed or the highest degree you have received? 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 Gender Identity Male 09/03/2023 7:44 AM CDT Sexual Orientation Straight 09/03/2023 7: 44 AM CDT Last Filed Vital Signs Vital Sign Reading Time Taken Comments Blood Pressure 138/88 12/05/2023 6:15 PM CDT Pulse 67 12/05/2023 6:15 PM CDT Temperature 35.6 ??C (96 ??F) 12/05/2023 6:14 PM CDT Respiratory Rate 17 12/05/2023 6:14 PM CDT Oxygen Saturation 96% 12/05/2023 6:15 PM CDT Inhaled Oxygen Concentration - - Weight 81.6 kg (180 lb) 12/04/2023 10:07 PM CDT Height 157.5 cm (5' 2 ) 12/04/2023 10:07 PM CDT Body Mass Index 32.92 12/04/2023 10:07 PM CDT Plan of Treatment Not on file Insurance [facility] Advance Directives For more information, please contact: [phone] * Full Code (Latest Code Status on File) Date Activated Date Inactivated Comments 06/13/2021 7:51 AM 06/15/2021 12:10 AM * Full Code Date Activated Date Inactivated Comments 02/27/2020 10:58 AM 03/05/2020 8:51 PM Care Teams Bumboater Relationship Specialty Start Date End Date Robbin Shaikh MD [address] [place] [id number] PCP - General Family Medicine 08/16/18
--- OUTSIDE RECORDS SUMMARY | 2024-06-16 20:33 | XMS_ITS | Clinical Summary ---
Author Organization [facility] al Address [address] [place] [address] Care Team Providers Care Accelerator Systems Director Name Role Phone Robbin Shaikh MD Primary Care Provider [phone] Allergies Active Allergy Reactions Criticality Noted Date [...] (06/14/2021): Added automatically from request for surgery [id number] Scoliosis 06/12/2021 Overview (06/14/2021): Added automatically from request for surgery [id number] Weight loss 02/28/2020 Assessment & Plan (03/01/2020 [...] noncompliance while at home. Placement at a residential may not be possible and pt may [...] to work with SW regarding placement in residential. ?? Code Status: Full Code Precautions: Suicide, elopement, assault Diet: Adult Diet Regular; Send on Disposables, Deliver tray to nursing, C4 Planner check DVT Prophylaxis: None as pt is ambulating at least TID Dispo: Anticipate unclear ?? Mild intellectual disability 02/27/2020 Mixed hyperlipidemia 08/16/2018 Assessment & Plan (03/02/2020 2:20 PM CDT): - Lipid panel wnl, A1c 5.0 - Given pt's recent significant wt loss (25 lbs in 4 months), will discontinue Rosuvastatin 5 mg q HS ? Communication disorder Surgical History Surgery Date Site/Laterality Comments TONSILLECTOMY 05/25/1999 - 05/24/2000 CYST REMOVAL 03/25/2021 - 04/23/2021 Left left arm ABCESS DRAINAGE 06/13/2021 mandible Medical History Medical History Date Comments Epilepsy (HCC) Depression Pectus carinatum Scoliosis Hyperlipidemia Schizophrenia (HCC) Family History Medical History Relation Name Comments Hyperlipidemia Mother Anesthesia problems Neg Hx Relation Name Status Comments Mother Social History Tobacco Use Types Packs/Day Years [...] often do you attend chur ch or alevism services? Never 02/27/2020 Do you belong to any clubs o r organizations such as latter-day groups, unions, fraternal or athletic groups, or [...] place to sleep or slept in a fdc (including now)? 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 Gender Identity Male 09/03/2023 7:44 AM CDT Sexual Orientation Straight 09/03/2023 7: 44 AM CDT Obstetrics History Last Filed Vital Signs Vital Sign Reading [...] 12/04/2023 10:07 PM CDT Plan of Treatment Health Maintenance Due Date Last Done Comments Depression Screening 1995 Hepatitis C Screening 1995 Varicella Vaccines (1 of 2 - 13+ 2-dose series) 11/03/2008 Regular Well Visit/Exam 18-64 11/03/2013 DTaP/Tdap/Td Vaccine (7 - Td or Tdap) 12/19/2019 12/18/2009, 03/11/2001, 08/28/2000, Additional history exists Influenza Vaccine (#1) 2024 HPV Vaccines Aged Out No longer eligi ble based on patient's age to complete this topic Pneumococcal vaccine <65 Aged Out No longer eligible based on patient's age to complete this topic Insurance [facility] Advance Directives For more information, please contact: [phone] * Full Code (Latest Code Status on File) Date Activated Date Inactivated Comments 06/13/2021 7:51 AM 06/15/2021 12:10 AM * Full Code Date Activated Date Inactivated Comments 02/27/2020 10:58 AM 03/05/2020 8:51 PM Care Teams Accelerator Systems Director Relationship Specialty Start Date End Date Robbin Shaikh MD [address] [place] [id number] PCP - General Family Medicine 08/16/18
--- OUTSIDE RECORDS SUMMARY | 2024-06-16 20:33 | XMS_ITS | CONTINUITY OF CARE DOCUMENT ---
Author Name hui ames Address Unknown Organization [facility] Address [address] [place] [address] Phone [phone] Care Team Providers Care Warp Hand Name Role Phone Gin JARA, Everton Unavailable BRIGID MINA MD P Unavailable BRIGID MINA MD Unavailable PROBLEMS Condition Status Date Provider Notes Family Hx heart disease active Everton Antonio ra, MD Depression active Everton Greenfield MD Seizures active Everton Greenfield MD ADHD active Everton Greenfield MD Left ventricular hypertrophy active Everton Greenfield MD Heterozygous familial hypercholesterolemia active 2019 Everton Greenfield MD ENCOUNTERS Date Type Provider Location Encounter Diag nosis - In-person encounter Office Visit Everton Greenfield MD [facility] - In-person encounter Office Visit Everton Greenfield MD [facility] - In-person encounter Office Visit Everton Greenfield MD [facility] - In-person encounter Office Visit Everton Greenfield MD [facility] Heterozygous familial hypercholesterolemiaLeft ventricular hypertrophyADHDSeizuresDepressionFamily Hx heart disease VITAL SIGNS Date Observation Value Provider Body Mass Index (Ratio) 23.60 kg/m2 Radha Greenfield MD blood pressure, diastolic 76 mm[Hg] Jin Roque blood pressure, systolic 117 mm[Hg] Rho mabel Roque oxygen saturation, oximetry 97 % Letha Mya pulse rate 68 /min Letha Mya respiratory rate E&M 18 /min Letha Mya weight E&M 174 [lb_av] Letha Mya blood pressure, resting No Rhon naomie Roque blood pressure, cuff size regular Rh onnaomie Mya height E&M 72 [in_i] Letha Mya Body Mass Index (Ratio) 18.44 kg/m2 Radha Greenfield MD blood pressure, cuff size regular Cy katey Oswald blood pressure, diastolic 77 mm[Hg] Cy ntzeea Oswald blood pressure, systolic 133 mm[Hg] Jennifer ashu Oswald pulse rate 99 /min Promise Chibel l oxygen saturation, oximetry 97 % Promise Oswald respiratory rate E&M 16 /min Promise Oswald weight E&M 136 [lb_av] Promise Campbel l height E&M 72 [in_i] Promise Campbel l Body Mass Index (Ratio) 17.63 kg/m2 Redd Mina blood pressure, diastolic 62 mm[Hg] Cy katey Oswald blood pressure, systolic 111 mm[Hg] Jennifer ashu Oswald pulse rate 83 /min Promise Campbel l oxygen saturation, oximetry 97 % Promise Oswald respiratory rate E&M 16 /min Promise Oswald weight E&M 130 [lb_av] Promise Campbel l blood pressure, cuff size regular Cy katey Oswald temperature site temporal Fatemeh Tank sley temperature E&M 97.5 [degF] Fatemeh Tanks rico height E&M 72 [in_i] Promise Campbel l Body Mass Index (Ratio) 19.80 kg/m2 Radha Greenfield MD blood pressure, diastolic 69 mm[Hg] Rh lauren Mya blood pressure, systolic 110 mm[Hg] Rho mabel Mya blood pressure, cuff size regular Rh lauren Roque oxygen saturation, oximetry 98 % Letha Mya respiratory rate E&M 18 /min Letha Mya pulse rate 75 /min Letha Mya blood pressure, resting No Aran naomie Mya weight E&M 146 [lb_av] Letha Mya height E&M 72 [in_i] Letha Roque ALLERGIES Allergy Name Onset Date Reaction Criticality Status AMOXICILLIN High Criticality active RESULTS Date Observation Value Provider Reference Range Interpretation Location LDL Size 219.3 [place] [facility] >222.9 Low LDL particle concentration (lipoprotein panel), risk categories correspond to NCEP categories for LDL cholesterol (on a percentile equivalent basis) 751 nmol/L [facility] <1138 9 cholesterol, non-HDL, total 71 MG/DL (CALC) [facility] <130 9 cholesterol/HDL ratio, serum, percent 2.2 calc [facility] <5.0 LDL cholesterol, serum 56 MG/DL (CALC) [facility] <100 9 triglyceride, serum, fasting 66 mg/dL [facility] <150 9 HDL cholesterol, serum 60 mg/dL [facility] > OR = 40 9 cholesterol, serum 131 mg/dL [facility] <200 9 LDL Size 228.0 [place]strom [facility] >222.9 LDL particle concentration (lipoprotein panel), risk categories correspond to NCEP categories for LDL cholesterol (on a percentile equivalent basis) 1128 nmol/L [facility] <1138 9 cholesterol, non-HDL, total 123 MG/DL (CALC) [facility] <130 9 cholesterol/HDL ratio, serum, percent 3.5 calc [facility] <5.0 9 LDL cholesterol, serum 104 MG/DL (CALC) [facility] <100 High 9 triglyceride, serum, fasting 101 mg/dL [facility] <150 9 HDL cholesterol, serum 50 mg/dL [facility] > OR = 40 9 cholesterol, serum 173 mg/dL [facility] <200 HISTORY OF MEDICATION USE Medication Status Instructions Dates Provider Indications Com ments rosuvastatin 5 mg tablet active Take 1 tablet by mouth every night 4 Everton Greenfield MD CRESTOR 5 MG ORAL TABLET completed one tab dialy at bedtime, repeat cholesterol levels 3 months after starting 6 - 1 Refugio Mina ZOLOFT 100 MG ORAL TABLET completed one tab daily 3 - 9 Promise Oswald Risperdal 1 mg tablet active 1 tablet by mouth once a day 3 Letha Roque Klonopin 0.5 mg tablet active 1 tablet by mouth once a day 3 Letha Roque SOCIAL HISTORY Date Observation Value Provider Underweight no Everton Greenfield MD social history E&M S moking History: Sabrina nino has never smoked. Everton Greenfield MD social history reviewed E&M revi ewed - no changes required Everton Greenfield MD smoking status Never smoker Letha Roque Underweight yes Everton Greenfield MD social history E&M S moking History: Sabrina nino has never smoked. Everton Greenfield MD social history reviewed E&M revi ewed - no changes required Everton Greenfield MD smoking status Never smoker Promise schultz Underweight yes Refugio Mina social history E&M S moking History: P mica has never smoked. Refugio Mina social history reviewed E&M revi ewed - no changes required Refugio Mina smoking status Never smoker Promise schultz number of grandchildren Everton Greenfield MD social history E&M S moking History: Sabrina nino has never smoked. Everton Greenfield MD social history reviewed E&M revi ewed - no changes required Everton Greenfield MD smoking status Never smoker Letha Roque FAMILY HISTORY Family Member Condition Mother Family History of Hy pertension: Mother Family History of CV A or Stroke: INSURANCE PROVIDERS Payer name Policy type / Coverage type Rakel red libertarian [place] MEDICAID (2) Medicaid [id number] ADVANCE DIRECTIVES Name Date DISCUSSED - NO DECISION MADE TREATMENT PLAN Date Name Performer Cardiology Everton Stern Cardiology Everton Stern Cardiology: macie valdez IQ in April 2020 showed CHOL 131, TG 66, HDL 60, LDL 56, LDLp 751, small LDL 107, APOB 50, Lp(a) 16, hsCRP 0.3, Lppla2 99. H is updated medication list for this problem includes: Rosuvastatin Calcium 5 Mg Tabs (Rosuvastatin calcium) ..... Take 1 tablet by mouth daily at bedtime. Everton Greenfield MD Cardiology follow up Everton valle MD Cardiology follow up Everton valle MD Cardiology follow up : H is updated medication list for this problem includes: Rosuvastatin Calcium 5 Mg Tabs (Rosuvastatin calcium) ..... Take 1 tablet by mouth daily at bedtime. repeat cholesterol levels 3 months after starting Everton Greenfield MD Cardiology Refugio Mina Cardiology Refugio Mina Cardiology: p er neurology Everton Greenfield MD Cardiology Everton Stern Cardiology Everton Stern Cardiology Everton Stern Date Name LIPID PANEL [facility] pid Panel with Inflammation ([facility]) LIPID PANEL [facility] pid Panel with Inflammation ([facility]) Complete Echo HISTORY OF PROCEDURES Procedure Date Procedure Name Provider Procedure Notes S tatus EKG Everton Greenfield MD complet ed EKG Everton Greenfield MD complet ed
--- OUTSIDE RECORDS SUMMARY | 2024-06-16 20:33 | XMS_ITS | Clinical Summary ---
Author Organization [facility] Address [address] [place] [address]. [place] [address] [place] [address] Care Team Providers Care Electronic Prepress Operator Name Role Phone Harpal Cates MD Primary Care Provider [phone] Allergies Active Allergy Reactions Criticality Noted Date Comments Amoxicillin Rash Low 11/20/2016 Medications cloNIDine 0.1 MG tablet Take 1.5 tablets (0.15 mg total) by mouth. Active ARIPiprazole 10 MG tablet Take 1 tablet (10 mg total) by mouth daily. Active levETIRAcetam (KEPPRA) 500 MG tablet Take 1 tablet (500 mg total) by mouth 2 (two) times daily. 11/25/19 24 Active LORazepam (ATIVAN) 0.5 MG tablet Take 1 tablet (0.5 mg total) by mouth every 8 (eight) hours as needed. 12/05/19 24 Active INVEGA SUSTENNA 156 MG/ML injection INJECT 1 SYRINGEFUL INTRAMUSCULARLY ONCE EVERY MONTH 02/29/20 24 Active rosuvastatin (CRESTOR) 5 MG tablet Take 1 tablet (5 mg total) by mouth daily. 02/03/20 24 Active traZODone (DESYREL) 150 MG tablet 03/12/20 24 Active risperiDONE (RISPERDAL) 3 MG tablet Take 1.5 tablets (4.5 mg total) by mouth nightly at bedtime. 03/12/20 24 Active Active Problems Problem Noted Date Diagnosed Date Biliary colic 03/16/2024 Encounters Date Type Department Care Team Description 04/13/2024 9:45 AM SR. LOGISTICS ANALYST Office Visit [facility] [address] [place] [address] Hreiberto Danielle MD Postop Followup (Lap dileep) 04/13/2024 Travel 03/24/2024 10:05 AM CDT - 03/24/2024 11:25 AM CDT Surgery [facility] [address] [place] [address] [place] [address] Heriberto Danielle MD laparoscopic cholecystectomy 03/24/2024 9:32 AM CDT Anesthesia Event [facility] [address] [place] [address] [place] [address] Francoise Blevins CRNA 03/24/2024 8:09 AM CDT - 03/24/2024 1:24 PM CDT Hospital Encounter [facility] [address] [place], [place] [address] [address] Heriberto Danielle MD Discharge Disposition: Home or Self Care (Routine Discharge) 03/24/2024 Travel 03/16/2024 9:15 AM CDT Office Visit [facility] [place] [address] Heriberto Danielle MD New Patient (Gallstones/) 03/16/2024 Travel from Last 3 Months Family History Medical History Relation Comments Cancer Mother Diabetes Mother Epilepsy Mother Stroke Mother Relation Status Comments Mother Social History Tobacco Use Types Packs/Day Years Used Date Smoking Tobacco: Every Day Smokeless Tobacco: Never Tobacco Cessation:Ready to Q uit: No; Counseling Given: No Alcohol Use Standard Drinks/Week Comments Yes 0 (1 standard drink = 0.6 oz pur e alcohol) ocasionally Sex and Gender Information Value Date Recorded Sex Assigned at Not on file Legal Sex Male 8:16 PM CDT Gender Identity Not on file Sexual Orientation Not on file Last Filed Vital Signs Vital Sign Reading Time Taken Comments Blood Pressure 99/66 04/13/2024 9:39 AM SR. LOGISTICS ANALYST Pulse 61 04/13/2024 9:39 AM SR. LOGISTICS ANALYST Temperature 35.7 ??C (96.3 ??F) 03/24/2024 11:15 AM C DT Respiratory Rate 14 04/13/2024 9:39 AM SR. LOGISTICS ANALYST Oxygen Saturation 97% 04/13/2024 9:39 AM SR. LOGISTICS ANALYST Inhaled Oxygen Concentration - - Weight 80.7 kg (178 lb) 04/13/2024 9:39 AM SR. LOGISTICS ANALYST Height 167.6 cm (5' 6 ) 04/13/2024 9:39 AM SR. LOGISTICS ANALYST Body Mass Index 28.73 04/13/2024 9:39 AM SR. LOGISTICS ANALYST Plan of Treatment Health Maintenance Due Date Last Done Comments Annual Physical 11/03/1998 Pneumococcal Vaccine: Pediatrics (0 to 5 Years) and At-Risk Patients (6 to 64 Years) (1 of 2 - PCV) 11/03/2001 PHQ-2 (Physician Cheesh-Na) 2007 Hepatitis C 11/03/2013 DTaP, Tdap and Td Vaccines (5 - Td or Tdap) 12/19/2019 12/18/2009, 03/11/2001, 08/28/2000, Additional history exists COVID-19 Vaccine ( season) 2024 Influenza Adult (#1) 2024 Hepatitis B Vaccines Completed 08/28/2000, 06/01/1996, 01/06/1996 Meningococcal Vaccine Aged Out 12/18/2009 No michelle rico eligible based on patient's age to complete this topic HPV Vaccines Aged Out No longer eligi ble based on patient's age to complete this topic Meningococcal B Vaccine Aged Out No l onger eligible based on patient's age to complete this topic RSV Immunizations Under 20 Months Aged Out No longer eligible based on patient's age to complete this topic Procedures Procedure Name Priority Date/Time Associated Diagnosis Comments LAP,CHOLECYSTECTOMY 03/24/2024 9 :27 AM CDT Biliary colic COMPREHENSIVE METABOLIC PANEL Routine 03/24/2024 8:27 AM CDT Biliary colic CBC, AUTO, NO DIFF STAT 03/24/2024 8: 27 AM CDT Biliary colic PATHOLOGY Routine 03/24/2024 12:00 AM CDT from Last 3 Months Results * (ABNORMAL) COMPREHENSIVE METABOLIC PANEL (03/24/2024 8:27 AM CDT) SODIUM S/P/B 137 136 - 145 MMOL/L 03/24/2024 8:51 AM CDT [facility] POTASSIUM S/P/B 4.1 3.5 - 5.1 MMOL/L 03/24/2024 8:51 AM CDT [facility] CHLORIDE S/P/B 104 98 - 107 MMOL/L 03/24/2024 8:51 AM CDT [facility] CO2 29.7 21.0 - 32.0 MMOL/L 03/24/2024 8:51 AM T [facility] GLUCOSE 95 70 - 99 MG/DL 03/24/2024 8:51 AM T [facility] Comment: FASTING GLUCOSE 100 TO 125 MG/DL IS CONSISTENT WITH IMPAIRED FASTING GLUCOSE. FASTING GLUCOSE >125 MG/DL IS CONSISTENT WITH DIABETES. RANDOM GLUCOSE >200 MG/DL WITH HYPERGLYCEMIC SYMPTOMS IS CONSISTENT WITH DIABETES. PER ADA GUIDELINES BUN 5(L) 6 - 24 MG/DL 03/24/2024 8:51 AM T [facility] CREATININE S/P/B 0.70 0.70 - 1.30 MG/DL 03/24/2024 8:51 AM CDT [facility] CALCIUM S/P/B 8.8 8.4 - 10.5 MG/DL 03/24/2024 8:51 AM T [facility] BILIRUBIN TOTAL S/P/B 0.4 0.2 - 1.0 MG/DL 03/24/2024 8:51 AM T [facility] Comment: THIS ASSAY IS NOT RECOMMENDED FOR PATIENTS UNDERGOING TREATMENT WITH ELTROMBOPAG DUE TO THE POTENTIAL FOR FALSELY ELEVATED RESULTS. ALKALINE PHOSPHATASE S/P/B 230(H) 45 - 115 U/L 03/24/2024 8:51 AM T [facility] AST 45(H) 15 - 37 U/L 03/24/2024 8:51 AM [facility] ALT 66(H) 16 - 63 U/L 03/24/2024 8:51 AM T [facility] TOTAL PROTEIN S/P/B 6.2(L) 6.4 - 8.2 G/DL 03/24/2024 8:51 AM T [facility] ALBUMIN S/P/B 3.7 3.4 - 5.0 G/DL 03/24/2024 8:51 AM T [facility] ANION GAP 3.3(L) 5.0 - 15.0 MMOL/L 03/24/2024 8:51 AM CDT [facility] OSMOLALITY (CALC) 281 MOSM/KG 024 8:51 AM CDT [facility] Comment:REFERENCE RANGE NOT ESTABLISHED GFR ESTIMATE >90 >89 ML/MIN/1. 73 M2 03/24/2024 8:51 AM CDT [facility] GFR NOTES GFR REFERENCE S: 03/24/2024 8:51 AM CDT [facility] Comment: THE ESTIMATED GFR IS CALCULATED USING THE 2020 CKD-EPI EQUATION. THE FOLLOWING CATEGORIES FOR GRADING RENAL FUNCTION ARE RECOMMENDED BY THE INTERNATIONAL SOCIETY OF NEPHROLOGY (KDIGO 2012 CLINICAL PRACTICE GUIDELINE). G1,NORMAL OR HIGH: >89 ml/min/1.73 m2 G2,MILDLY DECREASED: 60-89 ml/min/1.73 m2 G3A,MILDLY TO MODERATELY DECREASED: 45-59 ml/min/1.73 m2 G3B,MODERATELY TO SEVERELY DECREASED: 30-44 ml/min/1.73 m2 G4,SEVERELY DECREASED: 15-29 ml/min/1.73 m2 G5,KIDNEY FAILURE: <15 ml/min/1.73 m2 03/24/2024 8:27 AM CDT Heriberto Danielle MD LABORATORY Final Result [facility] [address] [place] [address], * CBC, AUTO, NO DIFF (03/24/2024 8:27 AM CDT) WBC 7.82 4.00 - 10.80 x10'3/uL 03/24/2024 8:38 AM CDT [facility] RBC 4.61 4.50 - 6.10 x10'6/uL 03/24/2024 8:38 AM CDT [facility] HGB 13.1 13.0 - 18.0 G/DL 03/24/2024 8:38 AM CDT [facility] HCT 38.8 37.0 - 52.0 % 03/24/2024 8:38 AM CDT [facility] MCV 84.2 78.0 - 100.0 FL 03/24/2024 8:38 AM CDT [facility] MCH 28.4 27.0 - 31.0 PG 03/24/2024 8:38 AM CDT [facility] MCHC 33.8 33.0 - 36.0 G/DL 03/24/2024 8:38 AM CDT [facility] RDW 12.7 11.5 - 14.5 % 03/24/2024 8:38 AM CDT [facility] PLT 228 150 - 350 x10'3/uL 03/24/2024 8:38 AM CDT [facility] MPV 9.8 7.4 - 10.4 FL 03/24/2024 8:38 AM CDT [facility] 03/24/2024 8:27 AM CDT us Heriberto Danielle MD LABORATORY Final Result [facility] [address] [place] [address], * Pathology (03/24/2024 12:00 AM CDT) PATHOLOGY [facility] ? Department of Laboratory Medicine ?[address] ?[place] [address] ? , extension [phone] ? Pathology Report ? Surgical Pathology Report Name: LUIS ARMANDO TERRY ? Specimen #: [id number] Age: 6 1995 (Age: 28) ?Location: [facility] Sex: M ?Procedure Date: 03/24/2024 Hospital #: [id number] ?Date Received: 03/25/2024 Date Reported: 03/28/2024 Provider: HERIBERTO DANIELLE MD Source: Gallbladder Clinical History: Biliary colic Gross Description: Received in formalin, labeled with a patient label and as gallbladder is and 8 x 2 x 2 cm gallbladder with a martínez-green serosa. ??A 0.7 cm cystic duct lymph node is identified. ??The cystic duct has a diameter of 0.4 cm and appears patent. ??The gallbladder is opened to reveal that the lumen contains green fluid and 4 granular black stones ranging from 0.1 to 0.2 cm. ??The lumen is lined by a dark green mucosa with a subtle lattice work of yellow deposits on the surface. No polyps or mass lesions are identified. ??The wall of the gallbladder has an average thickness of 0.2 cm. ??Linen Clerk tissue to include the cystic duct lymph node and of the cystic duct margin is submitted in cassette 1. Gross examination (when applicable), interpretation, and sign out were performed at [facility], [address] [place] [address]. FINAL DIAGNOSIS: Gallbladder, cholecystectomy: ? -Chronic cholecystitis. ? -Cholelithiasis. ? -Cholesterolosis . ? -Cystic duct lymph node with reactive changes. Electronically Signed Out ? HERIBERTO BELTRAN MD [facility] TISSUE GALLBLADDER STRUCTURE / Unknown 03/24/2024 10:12 AM CDT us Heriberto Danielle MD PATHOLOGY/CYTOLOGY ORDERABLES F inal Result [facility] [address] [place] [address], [id number] from Last 3 Months Insurance Care Teams Electronic Prepress Operator Relationship Specialty Start Date End Date Harpal Cates MD [address] [place] [id number] PCP - General FAMILY PRACTICE 11/12/20
== END 2024-06-14 23:29 | disposition home or self-care (01) ==
PROVIDERS: Emergency Provider Emergency Medicine; PCP Family Medicine
DX: F41.9 Anxiety disorder, unspecified (principal); F32.A Depression, unspecified; R45.851 Suicidal ideations; F17.200 Nicotine dependence, unspecified, uncomplicated; Z79.899 Other long term (current) drug therapy; Z20.822 Contact with and (suspected) exposure to COVID-19
CPT/HCPCS: 36415; 80053; 80143; 80179; 80307; 81003; 82077; 84443; 85025; 87637; 99284

== ENCOUNTER 2024-06-29 12:26 | Observation (INO) | payer OTHER, SELFPAY ==
[2024-06-29] VITALS (32 sets, daily range): BP systolic 114–129; BP diastolic 79–98; PULSE 76–99; RESP 12–20; TEMP 36.4; O2SAT 95–99; BMI 27.4
--- NOTE | ~2024-06-29 | CT_ITS ---
CLINICAL INDICATION: Abdominal pain COMPARISON: 11/26/2023. TECHNIQUE: Multiple contiguous axial images of the abdomen and pelvis were performed following the ad ministration of with 100 mL Omnipaque-350 intravenous contrast The dose-length product (DLP) was 438.70 mGy-cm. Automated exposure control and iterative reconstruction technique were employed. FINDINGS/OBSERVATIONS: Visualized lower thorax: The bilateral lung bases are clear. The heart is of normal size, without pericardial effusion. Small hiatal hernia is present. Liver: Significant fatty infiltration of the liver is identified. No hepatomegaly is noted. Focal fatty sparing is identified within segment 5 of the liver, unchanged from prior. Gallbladder and biliary system: The gallbladder is surgically absent. Pancreas: Fatty atrophy of the pancreas. Spleen: The spleen enhances homogeneously and is not enlarged measuring 11 cm in longitudinal dimension. Kidneys: Mild right-sided hydroureteronephrosis, likely secondary to bladder distention without a discrete obs truction visualized. The left kidney and collecting system are unremarkable. Adrenal glands: Unremarkable. Gastrointestinal tract: Colonic diverticulosis without surrounding inflammatory change. Appendix: The air-filled appendix is of normal caliber (axial series, images 98 through 112) Vasculature: Unremarkable. No aneurysmal dilatation or significant stenosis. Lymph nodes: No pathologically enlarged or morphologically suspicious lymph nodes within the retroperitoneum or at the root of the mesentery. Pelvic structures: The bladder is significantly distended, to the level of L5, and otherwise unremarkable. The prostate gland is not enlarged. Body wall and musculoskeletal: No significant degenerative disease within the lower thoracic or lumbosacral spine. IMPRESSION: Significant fatty infiltration of the liver. Fatty atrophy of the pancreas. Significant bladder distention causing right-sided hydroureteronephrosis Reviewed, dictated and finalized at location A. CULAR MODELER
--- NOTE | ~2024-06-29 | XR_ITS ---
EXAMINATION: XR chest 1V portable DATE: 06/29/2024 13:28 INDICATION: COVID-19. TECHNIQUE: A single frontal view of the chest was obtained. COMPARISON: Chest 2 views 01/22/2024 FINDINGS: There is no pneumonia, pleural effusion, or pneumothorax. The heart size is normal. IMPRESSION: 1. No acute cardiopulmonary disease. Reviewed, dictated and finalized at location A. [facility]OR OF RECREATION THERAPY
--- NOTE | 2024-06-29 12:40 | ED_ITS ---
HPI - Psych General Chief Complaint: Psychiatric Symptoms Stated Complaint: psych Time Seen by Provider: 06/29/24 12:34 Source: patient Mode of arrival: ambulatory Limitations: no limitations History of Present Illness HPI Narrative: 28-year-old male with a history of seizures, hepatic steatosis, dyslipidemia, gallstones, depression, schizophrenia presents to the ED with -- Help with his medications. -- Anger management. no hallucinations or delusions. no suicidal or homicidal ideation. Patient got into an argument with his mother the and was in long-term 2 days ago. Patient is the smoker but does not have any history of drug or alcohol use. patient is currently homeless after his mother ejected him from her house. Onset (ago): day(s) Duration: constant History of same: Yes Relieving factors: none Exacerbating factors: none Associated psychiatric symptoms: other ( He is angry that everything and everyone) Associated symptoms: denies other symptoms Related Data Home Medications ?Medication ?Instructions ?Recorded ?Confirmed ?Last Taken ?Type risperidone 2 mg tablet (Risperdal) 4.5 mg PO HS 05/20/19 06/14/24 03/06/24 History rosuvastatin 5 mg tablet (Crestor) 5 mg PO DAILY 12/16/19 06/14/24 03/06/24 History clonidine HCl 0.1 mg tablet 0.1 mg PO BID 03/30/22 06/14/24 03/06/24 History paliperidone palmitate 156 mg/mL 156 mg IM MONTHLY 06/08/23 06/14/24 03/06/24 History intramuscular syringe (Invega Sustenna) trazodone 150 mg tablet 150 mg PO HS 01/22/24 06/14/24 03/06/24 History Allergies Allergy/AdvReac Type Severity Reaction Status Date / Time amoxicillin Allergy Rash Verified 06/29/24 13:10 Review of Systems 2 Review of Systems: All systems reviewed & are unremarkable except as noted in HPI and below Constitutional: Constitutional: Reports as per HPI and Reports no additional constitutional complaints Eyes: Eyes: Reports as per HPI and Reports no additional eye complaints ENT: Reports system reviewed and no additional complaints, except as documented and Reports as per HPI Cardiovascular: Cardiovascular: Reports as per HPI and Reports no additional cardiovascular complaints Respiratory: Respiratory: Reports as per HPI and Reports no additional respiratory complaints Gastrointestinal: Gastrointestinal: Reports as per HPI and Reports no additional gastrointestinal complaints Genitourinary: Genitourinary: Reports no additional male genitourinary complaints and Reports as per HPI Musculoskeletal: Musculoskeletal: Reports no additional musculoskeletal complaints and Reports as per HPI Integumentary/Breasts: Skin/Breast: Reports system reviewed and no additional complaints, except as docu and Reports as per HPI Neurologic: Reports system reviewed and no additional complaints, except as documented and Reports as per HPI Psychiatric: Psychiatric: Reports no additional psychiatric complaints and Reports as per HPI Endocrine: Endocrine: Reports no additional endocrine complaints and Reports as per HPI Hematologic/Lymphatic: Hematologic/Lymphatic: Reports no additional hematologic/lymphatic complaints and Reports as per HPI Allergic/Immunologic: Allergic/Immunologic: Reports no additional allergic/immunologic complaints and Reports as per HPI [facility] Past Medical History Medical History Depression Seizure disorder High cholesterol History of seizure Schizophrenia Depression Surgical History Surgical History S/P excision of lipoma Right forearm 2.5x2.7cm 02/25/21 Left anterior chest 2.1x3.2cm 02/25/21 Hx of tonsillectomy Family History Family History Mother High cholesterol Sibling Seizure disorder Grandparent Diabetes mellitus Cerebrovascular accident Cancer Social History Social History Smoking status: Current every day smoker Alcohol intake: current Alcohol use details: Occasional Substance use: never Substance use type: does not use Living arrangements: with family Occupation/Education: unemployed Additional occupation/education comments: disabled Gender identity (if verbalized by the patient): Male Sexual Orientation (if Verbalized by the Patient): Straight or Heterosexual Spiritual care concerns: No Exam 2 Narrative: vitals are stable Const: General: healthy appearing HENMT: Head: normal to inspection Ears: external ears normal F lalo/Nose/Sinus: Normal external nose present Face and sinus: normal facial exam Mouth: Yes Normal oral and palatal mucosa present Throat: posterior oropharynx normal Eyes: Conjunctivae: conjunctivae normal Pupils: Equal, round and reactive pupils present EOM: EOMs intact bilaterally Direct Ophthalmoscopy: no photophobia Neck: Neck: normal visual inspection, no lymphadenopathy and no meningeal signs Chest: Chest palpation & inspection: normal inspection of the chest Resp: Effort & Inspection: normal respiratory effort Auscultation: clear to auscultation bilaterally Cardio: Rate: regular rate Rhythm: regular rhythm GI: GI Palp: Yes Soft to palpation Auscultation: normal bowel sounds O ther: no tenderness/rigidity/rebound. : General: Yes no CVA tenderness Back/Spine/Pelvis: Back: no CVA tenderness Skin: General skin exam: normal color Rashes: no rashes Wounds: no wounds Neuro: General: patient oriented x3, moves all extremities, no meningeal signs, no focal motor deficits and CN's II-XI intact bilaterally Speech: n ormal speech Extrem: General: normal to inspection and no clubbing, cyanosis or edema Psych: Mental Status: mental status grossly normal Other: Denied any delusions/ hallucinations. Denied homicidal or suicidal ideation. Patient has psychomotor retardation. Is indifferent. Course Course Emergency Course: Schizophrenia-- Patient does not have any psychotic symptoms at this time. homelessness transaminitis-- patient has a history of chronically elevated transaminases. patient had AST of Fifty, ALT of 79 and alkaline phosphatase of 251 on 06/14/2024. He was noted to have an AST of 780, ALT of 461 and alkaline phosphatase of 329. He has a normal bilirubin level. Patient does not have any evidence of fulminant hepatic failure. He has normal PT INR and ammonia level. The patient has a normal bilirubin. Patient has elevated alkaline phosphatase. CT of the abdomen and pelvis revealed fatty liver, fatty atrophy of the pancreas and a distended bladder with right hydroureteronephrosis. Distended bladder-- after the CT scan the patient was able to pass a large amount of urine. postvoiding his bladder scan read 57 cc of urine. would recommend repeating an ultrasound in the morning. Patient has an unremarkable UA and a normal BUN/ creatinine. Elevated troponins-- troponins were noted to be 135 and subsequently 123. EKG did not show any acute findings. EKG similar to a previous EKG done on 01/22/2024. This is suggestive of demand ischemia. Hypokalemia of 2.8. The patient has a normal magnesium. Vital Signs Vital signs: Vital Signs Temperature 36.4 C 06/29/24 12:32 Pulse Rate 84 06/29/24 12:32 Respiratory Rate 18 06/29/24 12:32 Blood Pressure 127/85 06/29/24 12:32 Pulse Oximetry 96 06/29/24 12:32 Oxygen Delivery Room Air 06/29/24 12:32 Temperature 36.4 C 06/29/24 12:32 Pulse Rate 84 06/29/24 12:32 Respiratory Rate 18 06/29/24 12:32 Blood Pressure 127/85 06/29/24 12:32 Pulse Oximetry 96 06/29/24 12:32 Oxygen Delivery Room Air 06/29/24 12:32 MDM - Psych MDM Narrative Medical decision making narrative: Acute on chronic liver disease hypokalemia Differential Diagnosis Differential diagnosis: Likely other ( drug-induced liver disease secondary to statins) Medical Records Attestation: I reviewed the patient's medical records. Lab Data Attestation: I reviewed the patient's lab results. 06/29/24 13:35 06/29/24 13:35 Labs: Lab Results 06/29/24 06/29/24 06/29/24 Range/Units 13:20 13:35 15:29 WBC 6.0 (4.8-10.8) K/mm3 RBC 4.77 (4.70-6.10) M/mm3 Hgb 13.3 L (14.0-18.0) g/dL Hct 40.4 (40.0-54.0) % MCV 84.7 (78.0-102.0) fL MCH 27.9 (27.0-31.0) pg MCHC 32.9 (32-36) g/dL RDW 12.7 (11.6-14.4) % Plt Count 222 (150-420) K/mm3 MPV 10.1 (8.7-11.0) fl Immature Gran % (Auto) 0.3 H (0.0-0.0) % Neut % (Auto) 53.0 (50.0-70.0) % Lymph % (Auto) 33.6 (18.0-42.0) % [place] % (Auto) 10.1 (2.0-11.0) % Eos % (Auto) 2.3 (1.0-6.0) % Baso % (Auto) 0.7 (0.0-1.0) % Lymph # (Auto) 2.02 (1.10-4.50) K/mm3 [place] # (Auto) 0.61 (0.10-0.90) K/mm3 Eos # (Auto) 0.14 (0.02-0.50) K/mm3 Baso # (Auto) 0.04 (0.00-0.10) K/mm3 Abs Immat Gran (auto) 0.02 H (0.00-0.00) K/mm3 Absolute Neuts (auto) 3.18 (1.70-7.20) K/mm3 Absolute Nucleated RBC 0.00 (0.00-0.00) K/mm3 Nucleated RBC % 0.0 (0-0.0) % PT 11.5 (9.50-12.1) Seconds INR 1.0 Sodium 138 (136-145) mmol/L Potassium 2.8 L (3.5-5.1) mmol/L Chloride 101 (98-108) mmol/L Carbon Dioxide 25 (21-32) mmol/L Anion Gap 12 (4-12) mmol/L BUN 8 (7-18) mg/dL Creatinine 0.85 (0.70-1.30) mg/dL Estim Creat Clear Calc 106 ml/min Estimated GFR > 60 (59 - ) Glucose 141 H (70-99) mg/dL Calculated Osmolality 286 (285-295) mOsm/kg Calcium 8.3 L (8.5-10.1) mg/dL Magnesium (1.8-2.4) mg/dL Total Bilirubin 0.9 (0.00-1.00) mg/dL AST 780 H (15-37) U/L ALT 461 H (16-63) U/L Alkaline Phosphatase 329 H (46-116) U/L Ammonia (11-32) umol/L Troponin I 135.1 H* 122.6 H* (0.00-60.4) ng/L NT-Pro-B Natriuret Pep 208 H (0-125) pg/mL Total Protein 6.5 (6.4-8.2) g/dL Albumin 3.6 (3.4-5.0) g/dL TSH 1.39 (0.36-3.74) uIU/mL Urine Color Dark yellow (Yellow) Urine Appearance Clear (Clear) Urine pH 6.0 (5.0-8.0) Ur Specific [place] 1.020 (1.010-1.020) Urine Protein Negative (Negative) Urine Glucose (UA) Trace H (Negative) Urine Ketones Negative (Negative) Ur Blood (Man) Negative (Negative) Urine Nitrate Negative (Negative) Urine Bilirubin 1+ H (Negative) Urine Urobilinogen >=8.0 (0.2-1.0) mg/dL Leukocyte Esterase Rfl Negative (Negative) FOREIGN/UL Urine RBC 0-2 (0-2) /hpf Urine WBC 0-3 (0-3) /hpf Ur Squamous Epith Cells None seen (Few) /hpf Urine Bacteria 1+ (None) /hpf Salicylates 1.0 L (2.8-20.0) mg/dL Urine Opiates Screen Negative (Negative) Urine Methadone Screen Negative (Negative) Acetaminophen < 2 L (10-30) ug/mL Ur Barbiturates Screen Negative (Negative) Ur Phencyclidine Scrn Negative (Negative) Ur Amphetamine Screen Negative (Negative) U Benzodiazepines Scrn Negative (Negative) Urine Cocaine Screen Negative (Negative) U Cannabinoids Screen Negative (Negative) Ethyl Alcohol < 3 (0-6) mg/dL Hepatitis A IgM Ab Pending Hep Bs Antigen Pending Hep B Core IgM Ab Pending Hepatitis C Antibody Pending 06/29/24 06/29/24 Range/Units 16:34 16:42 WBC (4.8-10.8) K/mm3 RBC (4.70-6.10) M/mm3 Hgb (14.0-18.0) g/dL Hct (40.0-54.0) % MCV (78.0-102.0) fL MCH (27.0-31.0) pg MCHC (32-36) g/dL RDW (11.6-14.4) % Plt Count (150-420) K/mm3 MPV (8.7-11.0) fl Immature Gran % (Auto) (0.0-0.0) % Neut % (Auto) (50.0-70.0) % Lymph % (Auto) (18.0-42.0) % [place] % (Auto) (2.0-11.0) % Eos % (Auto) (1.0-6.0) % Baso % (Auto) (0.0-1.0) % Lymph # (Auto) (1.10-4.50) K/mm3 [place] # (Auto) (0.10-0.90) K/mm3 Eos # (Auto) (0.02-0.50) K/mm3 Baso # (Auto) (0.00-0.10) K/mm3 Abs Immat Gran (auto) (0.00-0.00) K/mm3 Absolute Neuts (auto) (1.70-7.20) K/mm3 Absolute Nucleated RBC (0.00-0.00) K/mm3 Nucleated RBC % (0-0.0) % PT (9.50-12.1) Seconds INR Sodium (136-145) mmol/L Potassium (3.5-5.1) mmol/L Chloride (98-108) mmol/L Carbon Dioxide (21-32) mmol/L Anion Gap (4-12) mmol/L BUN (7-18) mg/dL Creatinine (0.70-1.30) mg/dL Estim Creat Clear Calc ml/min Estimated GFR (59 - ) Glucose (70-99) mg/dL Calculated Osmolality (285-295) mOsm/kg Calcium (8.5-10.1) mg/dL Magnesium 2.1 (1.8-2.4) mg/dL Total Bilirubin (0.00-1.00) mg/dL AST (15-37) U/L ALT (16-63) U/L Alkaline Phosphatase (46-116) U/L Ammonia < 10 L (11-32) umol/L Troponin I (0.00-60.4) ng/L NT-Pro-B Natriuret Pep (0-125) pg/mL Total Protein (6.4-8.2) g/dL Albumin (3.4-5.0) g/dL TSH (0.36-3.74) uIU/mL Urine Color (Yellow) Urine Appearance (Clear) Urine pH (5.0-8.0) Ur Specific [place] (1.010-1.020) Urine Protein (Negative) Urine Glucose (UA) (Negative) Urine Ketones (Negative) Ur Blood (Man) (Negative) Urine Nitrate (Negative) Urine Bilirubin (Negative) Urine Urobilinogen (0.2-1.0) mg/dL Leukocyte Esterase Rfl (Negative) FOREIGN/UL Urine RBC (0-2) /hpf Urine WBC (0-3) /hpf Ur Squamous Epith Cells (Few) /hpf Urine Bacteria (None) /hpf Salicylates (2.8-20.0) mg/dL Urine Opiates Screen (Negative) Urine Methadone Screen (Negative) Acetaminophen (10-30) ug/mL Ur Barbiturates Screen (Negative) Ur Phencyclidine Scrn (Negative) Ur Amphetamine Screen (Negative) U Benzodiazepines Scrn (Negative) Urine Cocaine Screen (Negative) U Cannabinoids Screen (Negative) Ethyl Alcohol (0-6) mg/dL Hepatitis A IgM Ab Hep Bs Antigen Hep B Core IgM Ab Hepatitis C Antibody ECG Data EKG #1: ECG completion date: 06/29/24 ECG completion time: 13:28 Interpretation: Normal sinus rhythm. Normal axis. Early repolarization EKG #2: ECG completion date: 06/29/24 ECG completion time: 16:36 Interpretation: Normal sinus rhythm. early repolarization syndrome. This is unchanged from a previous EKG Discharge Plan Discharge Clinical Impression: Transaminitis, Hypokalemia Patient Disposition: Acute Care [facility] Condition: Stable Patient Language: Yi Prescriptions: No Action risperidone [Risperdal] 2 mg tablet 4.5 mg PO HS Patient Comments: patient out of medicine Invega Sustenna 156 mg/mL syringe 156 mg IM MONTHLY rosuvastatin [Crestor] 5 mg tablet 5 mg PO DAILY clonidine HCl 0.1 mg tablet 0.1 mg PO BID levetiracetam [Keppra] 500 mg tablet 500 mg PO BID Qty: 60 0RF trazodone 150 mg tablet 150 mg PO HS Follow-up/Referrals: UNKNOWN,DOCTOR [Primary Care Provider] - Time of Disposition: 17:47
--- NOTE | 2024-06-29 13:18 | ECG_ITS ---
Test Date: 2024-06-29 13:28:00 Measurements Intervals [place] Rate: 89 P: 64 DE: 150 QRS: 44 QRSD: 89 T: 1 QT: 377 QTc: 460 Interpretive Statements SINUS RHYTHM ST ELEVATIOIN IN ANTEROLAT/HIGH LAT LEADS- PROBABLY EARLY REPOLARIZATION MINIMAL Q WAVES- DIFFUSE LEADS BORDERLINE ST-T WAVE ABNORMALITY- INFERIOR LEADS BORDERLINE ECG No previous ECG available for comparison Electronically Signed On 06-29-2024 13:52:59 FITNESS AND WELLNESS COORDINATOR by Stevie Morrison D.O.
--- OUTSIDE RECORDS SUMMARY | 2024-06-29 13:31 | XMS_ITS ---
Author Organization Unknown Address [address] [place] [phone] Phone Care Team Providers Care Crimping Press Operator Name Role Phone BERNA Sandoval JORDON Attending Unavailable HERLINDA Serrano Primary Unavailable Immunization [...] CVX Tdap 12/18/2009 Completed 115 CVX Results SARS ANTIGEN RAPID - Collect Date/Time: 06/28/2024 07:10 [facility] ID: [id number] [place] [address], [id number] LOINC: 06036-9 Test Value Unit Reference Range Code Code System Flag SARS ANTIGEN RAPID POSITIVE 10939-2 LOINC A SEND TO I[facility]? YES 4 PLEX RESPIRATORY COVID FLU RSV PCR - Collect Date/Time: 06/28/2024 04:00 [facility] ID: [id number] [address] [place], [place], [id number] LOINC: 62620-3 Test Value Unit Reference Range Code Code System Flag SARS CoV2 PCR POSITIVE A FLU A PCR NEGATIVE FLU B PCR NEGATIVE RSV PCR NEGATIVE SEND TO IFC? YES Social History Type Status Start Date End Date Code Code Syst em Smoking History Never smoker (Never Smoked) [id number] SNOMED CT Sex Male Hospital Discharge Instructions Should you have any questions prior to discharge, please contact a member of your healthcare team. If you have left the hospital and have any questions, please contact your primary care physician. Reason For Referral No Data Found Plan of Treatment No Data Found Personal Care Team Section Performer Name Performer Role Active Date Inactive RUTH Pollard PCP - Primary care physician 2022-03-06
--- OUTSIDE RECORDS SUMMARY | 2024-06-29 13:31 | XMS_ITS | Clinical Summary ---
Author Organization [facility] al Address [address] [place] [address] Care Team Providers Care Hospital Admitting Clerk Name Role Phone Robbin Shaikh MD Primary Care Provider [phone] Allergies Active Allergy Reactions Criticality Noted Date [...] (06/14/2021): Added automatically from request for surgery [id number] Scoliosis 06/12/2021 Overview (06/14/2021): Added automatically from request for surgery [id number] Weight loss 02/28/2020 Assessment & Plan (03/01/2020 [...] noncompliance while at home. Placement at a [facility] may not be possible and pt may [...] to work with SW regarding placement in [facility]. ?? Code Status: Full Code Precautions: Suicide, elopement, assault Diet: Adult Diet Regular; Send on Disposables, Deliver tray to nursing, Rackman check DVT Prophylaxis: None as pt is [...] often do you attend chur ch or oriental orthodox services? 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 Gender Identity Male 09/03/2023 7:44 AM CDT [...] patient's age to complete this topic Insurance [facility] Advance Directives For more information, please contact: [phone] * Full Code (Latest Code Status on File) Date Activated Date Inactivated Comments 06/13/2021 7:51 AM 06/15/2021 12:10 AM * Full Code Date Activated Date Inactivated Comments 02/27/2020 10:58 AM 03/05/2020 8:51 PM Care Teams Hospital Admitting Clerk Relationship Specialty Start Date End Date Robbin Shaikh MD [address] [place] [address] PCP - General Family Medicine 08/16/18
--- OUTSIDE RECORDS SUMMARY | 2024-06-29 13:31 | XMS_ITS | Referral Summary ---
Author Organization [facility] al Address [address] [place] [address] Care Team Providers Care Sweatband Cutting Machine Operator Name Role Phone Robbin Shaikh MD Primary Care Provider [phone] Allergies Active Allergy Reactions Criticality Noted Date [...] (06/14/2021): Added automatically from request for surgery [id number] Scoliosis 06/12/2021 Overview (06/14/2021): Added automatically from request for surgery [id number] Weight loss 02/28/2020 Assessment & Plan (03/01/2020 [...] noncompliance while at home. Placement at a fdc may not be possible and pt may [...] to work with SW regarding placement in fdc. ?? Code Status: Full Code Precautions: Suicide, elopement, assault Diet: Adult Diet Regular; Send on Disposables, Deliver tray to nursing, Tractor Trailer Driver check DVT Prophylaxis: None as pt is [...] often do you attend chur ch or cheondoism services? Never 02/27/2020 Do you belong to any clubs o r organizations such as baptist groups, unions, fraternal or athletic groups, or [...] place to sleep or slept in a senior care (including now)? 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 Gender Identity Male 09/03/2023 7:44 AM CDT [...] Plan of Treatment Not on file Insurance [facility] Advance Directives For more information, please contact: [phone] * Full Code (Latest Code Status on File) Date Activated Date Inactivated Comments 06/13/2021 7:51 AM 06/15/2021 12:10 AM * Full Code Date Activated Date Inactivated Comments 02/27/2020 10:58 AM 03/05/2020 8:51 PM Care Teams Sweatband Cutting Machine Operator Relationship Specialty Start Date End Date Robbin Shaikh MD [address] [place] [address] PCP - General Family Medicine 08/16/18
--- OUTSIDE RECORDS SUMMARY | 2024-06-29 13:31 | XMS_ITS | CONTINUITY OF CARE DOCUMENT ---
Author Name hui ames Address Unknown Organization [facility] Address [address] [place] [address] Phone [phone] Care Team Providers Care Gas Appliance Adjuster Name Role Phone Gin JARA, Everton Unavailable BRIGID MINA MD P Unavailable [phone] BRIGID MINA MD Unavailable [phone] PROBLEMS Condition Status Date Provider Notes Family Hx heart disease active Everton Antonio ra, MD Depression active Everton Greenfield MD Seizures active Everton Greenfield MD ADHD active Everton Greenfield MD Left ventricular hypertrophy active Everton Greenfield MD Heterozygous familial hypercholesterolemia active 2019 Everton Greenfield MD ENCOUNTERS Date Type Provider Location Encounter Diag nosis - In-person encounter Office Visit Everton Greenfield MD [facility] - In-person encounter Office Visit Everton Greenfield MD [facility] - In-person encounter Office Visit Everton Greenfield MD [facility] - In-person encounter Office Visit Everton Greenfield MD [facility] Heterozygous familial hypercholesterolemiaLeft ventricular hypertrophyADHDSeizuresDepressionFamily Hx heart disease VITAL SIGNS Date Observation Value Provider Body Mass Index (Ratio) 23.60 kg/m2 Radha Greenfield MD blood pressure, diastolic 76 mm[Hg] iJn Roque blood pressure, systolic 117 mm[Hg] Rho [...] Policy type / Coverage type Rakel red republican [place] MEDICAID (2) Medicaid [id number] ADVANCE DIRECTIVES Name Date DISCUSSED - NO [...]
--- OUTSIDE RECORDS SUMMARY | 2024-06-29 13:32 | XMS_ITS | Clinical Summary ---
Author Organization [facility] Address [address] [place] [address] Care Team Providers Care Box Sorter Name Role Phone Harpal Cates MD Primary Care Provider [phone] Allergies Active Allergy Reactions Criticality Noted Date [...] Encounters Date Type Department Care Team Description 06/24/2024 10:13 PM SCHOOL BUS OPERATOR - 06/25/2024 12:43 AM [facility] [address] [place] [address] Asad Venegas, DO Chest Pain Discharge Disposition: Home or Self Care (Routine Discharge) 06/24/2024 Travel 04/13/2024 9:45 AM SCHOOL BUS OPERATOR Office Visit [facility] [address] [place], [place] [address] [place] [address] Heriberto Danielle MD Postop Followup (Roya falk) 04/13/2024 Travel from Last 3 Months Family History [...] Information Value Date Recorded Sex Assigned at Male 06/24/2024 10:17 PM SCHOOL BUS OPERATOR Legal Sex Male 8:16 PM CDT Gender Identity Not on file Sexual Orientation Not on file Last Filed Vital Signs Vital Sign Reading Time Taken Comments Blood Pressure 128/90 06/25/2024 12:30 AM SCHOOL BUS OPERATOR Pulse 95 06/25/2024 12:30 AM SCHOOL BUS OPERATOR Temperature 35.8 ??C (96.5 ??F) 06/24/2024 9:56 PM CS T Respiratory Rate 16 06/25/2024 12:30 AM SCHOOL BUS OPERATOR Oxygen Saturation 100% 06/25/2024 12:30 AM SCHOOL BUS OPERATOR Inhaled Oxygen Concentration - - Weight 80.7 kg (178 lb) 06/24/2024 9:56 PM SCHOOL BUS OPERATOR Height 167.6 cm (5' 6 ) 06/24/2024 9:56 PM SCHOOL BUS OPERATOR Body Mass Index 28.73 06/24/2024 9:56 PM SCHOOL BUS OPERATOR Plan of Treatment Health Maintenance Due Date Last Done Comments Annual Physical 11/03/1998 Pneumococcal Vaccine: Pediatrics (0 to 5 Years) and At-Risk Patients (6 to 64 Years) (1 of 2 - PCV) 11/03/2001 Hepatitis C 11/03/2013 DTaP, Tdap and Td Vaccines (5 - Td or Tdap) 12/19/2019 12/18/2009, 03/11/2001, 08/28/2000, Additional history exists COVID-19 Vaccine ( season) 2024 Influenza Adult (#1) 2024 PHQ-2 (Physician [place]) 05/25/2024 Hepatitis B Vaccines Completed 08/28/2000, 06/01/1996, 01/06/1996 [...] Procedure Name Priority Date/Time Associated Diagnosis Comments ECG 12-LEAD Routine 06/25/2024 12:36 AM SCHOOL BUS OPERATOR TROPONIN, QUANT STAT 06/25/2024 12:15 AM SCHOOL BUS OPERATOR XR CHEST PORTABLE STAT 06/24/2024 10: 31 PM SCHOOL BUS OPERATOR TROPONIN, QUANT STAT 06/24/2024 10:19 PM SCHOOL BUS OPERATOR COMPREHENSIVE METABOLIC PANEL STAT 06/24/2024 10:19 PM SCHOOL BUS OPERATOR CBC W/DIFF AUTOMATED STAT 06/24/2024 10:19 PM SCHOOL BUS OPERATOR ECG 12-LEAD Routine 06/24/2024 10:03 PM SCHOOL BUS OPERATOR from Last 3 Months Results * ECG 12 lead (06/25/2024 12:36 AM SCHOOL BUS OPERATOR) Only the most recent of2 resultswithin the time period is included. 06/25/2024 12:3 6 AM SCHOOL BUS OPERATOR Narrative [facility] - 06/25/2024 9:02 AM SCHOOL BUS OPERATOR ? [facility] ?[address] [place], [place] ??[address] ? Test Date: ?2024-06-25 Pat Name: ? LUIS ARMANDOLALA DCONEY ? Department: ?? 3 ? Room: ? EXAM 101 Gender: ? Male ? Chief Inspector: ?? : ?1995 ? Requested By: ASAD VENEGAS Order Number: [id number] ? Reading MD: ?? Erbert Oviedo ? Measurements Intervals ?[place] ? Rate: ? 84 ? P: ?47 WV: ? 116 ?QRS: ?57 QRSD: ? 101 ?T: ?53 QT: ? 377 ? QTc: ?447 ? Interpretive Statements SINUS RHYTHM WITH SINUS ARRHYTHMIA WITH SHORT WV INTERVAL OL BUS OPERATOR Procedure Note Pedro Oviedo MD - 06/25/[address] [place] [address] Test Date: 2024-06-25 Pat Name: LUIS ARMANDO TERRY Department: 3 Room: EXAM 101 Gender: Male Chief Inspector: : 1995 Requested By: ASAD VENEGAS Order Number: [id number] Reading MD: Pedro Oviedo Measurements Intervals [place] Rate: 84 P: 47 WV: 116 QRS: 57 QRSD: 101 T: 53 QT: 377 QTc: 447 Interpretive Statements SINUS RHYTHM WITH SINUS ARRHYTHMIA WITH SHORT WV INTERVAL OL BUS OPERATOR Asad Venegas DO ECG ORDERABLES Final Result Performing Organization Address [facility] de Phone Number [facility] * TROPONIN, QUANT (06/25/2024 12:15 AM SCHOOL BUS OPERATOR) Only the most recent of2 resultswithin the time period is included. TROPONIN I HIGH SENSITIVITY 9 0 - 76 ng/L 06/25/2024 12:39 AM SCHOOL BUS OPERATOR [facility] 06/25/2024 12:1 5 AM SCHOOL BUS OPERATOR Asad Venegas DO LABORATORY Final Result Performing Organization Address [facility] de Phone Number [facility] [place] [address], * XR CHEST PORTABLE (06/24/2024 10:31 PM SCHOOL BUS OPERATOR) Anatomical Region Laterality Modality Chest Radiographic Debbie ging 06/24/2024 10:4 0 PM SCHOOL BUS OPERATOR Impressions 06/24/2024 10:41 PM SCHOOL BUS OPERATOR IMPRESSION: ======== 1. ??No acute cardiopulmonary findings. Referred By: ?? Interpreted By: Ryan Herbert MD, 06/24/2024 10:40 PM Narrative 06/24/2024 10:41 PM SCHOOL BUS OPERATOR [address] [place] [address] Examination: Chest x-ray 1 view Exam Date/Time: 06/24/2024 10:25 PM Reason For Exam: ??chest pain radiating to back ?? Chest pain onset one hour ago Comparison: Chest radiograph 10/15/2007 Technique: Single AP view of the chest was obtained. Findings: Heart size normal. ??No large effusion. ??No pneumothorax. ??No focal infiltrate or consolidative changes. ??Pulmonary vasculature within normal limits. ======== Procedure Note Ryan Herbert MD - 06/24/[address] [place] [address] Examination: Chest x-ray 1 view Exam Date/Time: 06/24/2024 10:25 PM Reason For Exam: chest pain radiating to back Chest pain onset one hour ago Comparison: Chest radiograph 10/15/2007 Technique: Single AP view of the chest was obtained. Findings: Heart size normal. No large effusion. No pneumothorax. Nofocal infiltrate or consolidative changes. Pulmonary vasculature withinnormal limits. ======== IMPRESSION: ======== 1. No acute cardiopulmonary findings. Referred By: Interpreted By: Ryan Herbert MD, 06/24/2024 10:40 PM us Asad Venegas DO GENERAL IMAGING Final Result * (ABNORMAL) COMPREHENSIVE METABOLIC PANEL (06/24/2024 10:19 PM SCHOOL BUS OPERATOR) SODIUM S/P/B 141 136 - 145 MMOL/L 06/24/2024 10:50 PM [facility] POTASSIUM S/P/B 3.5 3.5 - 5.1 MMOL/L 06/24/2024 10:50 PM [facility] CHLORIDE S/P/B 102 98 - 107 MMOL/L 06/24/2024 10:50 PM [facility] CO2 30.4 21.0 - 32.0 MMOL/L 06/24/2024 10:50 PM [facility] GLUCOSE 106(H) 70 - 99 MG/DL 06/24/2024 10:50 PM [facility] Comment: FASTING GLUCOSE 100 TO 125 MG/DL IS CONSISTENT WITH IMPAIRED FASTING GLUCOSE. FASTING GLUCOSE >125 MG/DL IS CONSISTENT WITH DIABETES. RANDOM GLUCOSE >200 MG/DL WITH HYPERGLYCEMIC SYMPTOMS IS CONSISTENT WITH DIABETES. PER ADA GUIDELINES BUN 1(L) 6 - 24 MG/DL 06/24/2024 10:50 PM [facility] CREATININE S/P/B 0.83 0.70 - 1.30 MG/DL 06/24/2024 10:50 PM [facility] CALCIUM S/P/B 9.0 8.4 - 10.5 MG/DL 06/24/2024 10:50 PM [facility] BILIRUBIN TOTAL S/P/B 0.4 0.2 - 1.0 MG/DL 06/24/2024 10:50 PM [facility] Comment: THIS ASSAY IS NOT RECOMMENDED FOR PATIENTS UNDERGOING TREATMENT WITH ELTROMBOPAG DUE TO THE POTENTIAL FOR FALSELY ELEVATED RESULTS. ALKALINE PHOSPHATASE S/P/B 322(H) 45 - 115 U/L 06/24/2024 10:50 PM [facility] AST 38(H) 15 - 37 U/L 06/24/2024 10:50 PM [facility] ALT 61 16 - 63 U/L 06/24/2024 10:50 PM SCHOOL BUS OPERATOR [facility] TOTAL PROTEIN S/P/B 7.2 6.4 - 8.2 G/DL 06/24/2024 10:50 PM [facility] ALBUMIN S/P/B 4.4 3.4 - 5.0 G/DL 06/24/2024 10:50 PM [facility] ANION GAP 8.6 5.0 - 15.0 MMOL/L 06/24/2024 10:50 PM [facility] OSMOLALITY (CALC) 288 MOSM/KG 025 10:50 PM [facility] Comment:REFERENCE RANGE NOT ESTABLISHED GFR ESTIMATE >90 >89 ML/MIN/1. 73 M2 06/24/2024 10:50 PM [facility] GFR NOTES GFR REFERENCE S: 06/24/2024 10:50 PM [facility] Comment: THE ESTIMATED GFR IS [...] ml/min/1.73 m2 G5,KIDNEY FAILURE: <15 ml/min/1.73 m2 06/24/2024 10:1 9 PM SCHOOL BUS OPERATOR us Asad Venegas DO LABORATORY Final Result [facility] [address] [place] [address], * CBC W/DIFF AUTOMATED (06/24/2024 10:19 PM SCHOOL BUS OPERATOR) WBC 10.51 4.00 - 10.80 x10'3/uL 06/24/2024 10:26 PM [facility] RBC 5.40 4.50 - 6.10 x10'6/uL 06/24/2024 10:26 PM [facility] HGB 15.1 13.0 - 18.0 G/DL 06/24/2024 10:26 PM [facility] HCT 44.3 37.0 - 52.0 % 06/24/2024 10:26 PM [facility] MCV 82.0 78.0 - 100.0 FL 06/24/2024 10:26 PM [facility] MCH 28.0 27.0 - 31.0 PG 06/24/2024 10:26 PM [facility] MCHC 34.1 33.0 - 36.0 G/DL 06/24/2024 10:26 PM [facility] RDW 12.7 11.5 - 14.5 % 06/24/2024 10:26 PM [facility] PLT 306 150 - 350 x10'3/uL 06/24/2024 10:26 PM [facility] MPV 9.6 7.4 - 10.4 FL 06/24/2024 10:26 PM [facility] CBC COMMENT NORMAL REFERENCE RANGE NOT ESTABLISHED FOR THE PROPORTIONAL LEUKOCYTE DIFFERENTIAL. 06/24/2024 10:26 PM [facility] NEUTROPHILS % 59.1 % 06/24/2024 10:26 PM [facility] LYMPHOCYTES % 31.7 % 06/24/2024 10:26 PM [facility] MONOCYTES % 8.0 % 06/24/2024 10:26 PM [facility] EOSINOPHILS % 0.6 % 06/24/2024 10:26 PM [facility] BASOPHILS % 0.4 % 06/24/2024 10:26 PM [facility] IMMATURE GRANS % 0.2 % 06/24/19 10:26 PM [facility] NRBC % 0.0 % 06/24/2024 10:26 PM [facility] ABS. NEUTROPHILS 6.22 1.60 - 8.30 x10'3/uL 06/24/2024 10:26 PM SCHOOL BUS OPERATOR [facility] ABS. LYMPHOCYTES 3.33 0.80 - 4.70 x10'3/uL 06/24/2024 10:26 PM SCHOOL BUS OPERATOR [facility] ABS. MONOCYTES 0.84 0.00 - 1.50 x10'3/uL 06/24/2024 10:26 PM SCHOOL BUS OPERATOR [facility] ABS. EOSINOPHILS 0.06 0.00 - 0.40 x10'3/uL 06/24/2024 10:26 PM SCHOOL BUS OPERATOR [facility] ABS. BASOPHILS 0.04 0.00 - 0.20 x10'3/uL 06/24/2024 10:26 PM SCHOOL BUS OPERATOR [facility] ABS. IMMATURE GRANULOCYTES 0.02 0.00 - 0.03 x10'3/uL 06/24/2024 10:26 PM SCHOOL BUS OPERATOR [facility] ABS. NUCLEATED RBC'S 0.00 0.00 - 0.01 x10'3/uL 06/24/2024 10:26 PM SCHOOL BUS OPERATOR [facility] 06/24/2024 10:1 9 PM SCHOOL BUS OPERATOR Asad Venegas DO LABORATORY Final Result [facility] [address] [place] [address], from Last 3 Months Insurance [employer] Care Teams Box Sorter Relationship Specialty Start Date End Date Harpal Cates MD [address] [place] [phone] PCP - General FAMILY PRACTICE 11/12/20
--- OUTSIDE RECORDS SUMMARY | 2024-06-29 13:32 | XMS_ITS ---
Author Organization Unknown Address [address] [place] [phone] Phone Care Team Providers Care Party Coordinator Name Role Phone RACHELLE GUPTA Attending Unavailable [...] DIFF - Collect Date/T beny: 01/12/2024 09:03 [facility] ID: [id number] [place] [address], [phone] LOINC: 83988-9 Test Value Unit Reference Range Code Code System Flag WBC 6.5 10^3uL L=4.8 H=10.8 RBC 4.77 10^6uL L=4.60 H=6.20 HEMOGLOBIN 13.6 g/dL L=14.0 H=18.0 718-7 LOINC L HEMATOCRIT 40.0 VOL% L=42.0 H=52.0 4544-3 LOINC L MCV 83.9 fL L=80.0 H=94.0 MCH 28.5 pg L=27.0 H=32.0 MCHC 34.0 g/dL L=32.0 H=36.0 PLATELETS 190 10^3uL L=100 H=400 65560-5 LOINC RDW 13.0 % L=11.7 H=15.5 %GRAN 45.9 % L=40.0 H=70.0 15541-4 LOINC %LYMPH 40.3 % L=20.0 H=45.0 736-9 LOINC %MONO 10.1 % L=2.0 H=10.0 55946-8 LOINC H %EOS 2.9 % L=0.0 H=6.0 713-8 LOINC %BASO 0.6 % L=0.0 H=3.0 706-2 LOINC #NEUT 3.0 10^3uL L=1.9 H=7.6 77946-7 LOINC #LYMPH 2.6 10^3uL L=0.9 H=4.9 04084-3 LOINC #MONO 0.7 10^3uL L=0.1 H=0.9 47493-1 LOINC #EOS 0.2 10^3uL L=0.0 H=0.6 712-0 LOINC #BASO 0.04 10^3uL L=0.00 H=0.10 67158-8 LOINC #IM GRANS 0.0 10^3uL L=0.0 H=7.0 13045-6 LOINC %IM GRANS 0.2 % L=0.0 H=5.0 33850-4 LOINC %NRB 0.0 L=0.0 H=0.2 72621-4 LOINC #NRB 0.000 L=0.000 H=0.012 71273-9 LOINC MANUAL DIFF NOT INDICATED RBC MORPH NOT INDICATED COMPREHENSIVE METABOLIC PANE L - Collect Date/Time: 01/12/2024 09:03 [facility] ID: [id number] [address] [place], [place], [phone] LOINC: 49390-6 Test Value Unit Reference Range Code Code [...] LOINC H ANION GAP 9 L=10 H=20 62300-1 LOINC L OSMOLALITY 288 mOs/kG L=280 H=296 99677-4 LOINC BUN/CREAT 8.6 3097-3 LOINC CALCIUM 9.4 mg/dL L=8.3 H=10.5 17213-6 LOINC AST 56 U/L L=15 H=46 1920-8 LOINC H ALT 63 U/L L=9 H=72 1742-6 LOINC ALKALINE PHOS 159 U/L L=38 H=126 6768-6 LOINC H TOTAL BILI 0.5 mg/dL L=0.2 H=1.3 1975-2 LOINC ALBUMIN 4.3 G/dL L=3.5 H=5.0 1751-7 LOINC TOTAL PROTEIN 6.5 g/L L=6.3 H=8.2 2885-2 LOINC A/G RATIO 2.0 78991-7 LOINC AGE 28 12436-8 LOINC eGFR NON-AFR 143 ml/min eGFR AFR AMER 173 ml/min HGB A1C -GLYCOHEMOGLOBIN - C ollect Date/Time: 01/12/2024 09:03 [facility] ID: [id number] [place] [address], [phone] LOINC: 4548-4 Test Value Unit Reference Range Code Code System Flag HGBA1C 4.9 % 4548-4 LOINC LIPID PANEL - Collect Date/T beny: 01/12/2024 09:03 [facility] ID: [id number] [place] [address], [phone] LOINC: 41882-3 Test Value Unit Reference Range Code Code System Flag FASTING YES CHOLESTEROL 96 mg/dL L=0 H=200 3-3 LOINC TRIGLYCERIDE 70 mg/dL L=0 H=150 2571-8 LOINC HDL 50 mg/dL L=40 H=60 2084-9 LOINC LDL 33 mg/dL 2088-1 LOINC PROLACTIN - Collect Date/José e: 01/12/2024 09:03 [facility] ID: [id number] [place] [address], [phone] LOINC: 2842-3 Test Value Unit Reference Range Code Code System Flag Prolactin 58.2 3.6-31.5 2842-3 LOINC H Social History Type Status Start Date End Date Code Code Syst em Smoking History Never smoker (Never Smoked) [id number] SNOMED CT Sex Male Hospital Discharge Instructions Should you have any questions prior to discharge, please contact a member of your healthcare team. If you have left the hospital and have any questions, please contact your primary care physician. Reason For Referral No Data Found Plan of Treatment No Data Found Encounters Encounter Diagnosis Start Date Code Code Sys tem Other assisted (current) drug therapy 01/12/2024 SNOMED-CT Personal Care Team Section Performer Name Performer Role Active Date Inactive RUTH Pollard PCP - Primary care physician 2022-03-06
[2024-06-29 13:39] LABS: Basophils Absolute Auto 0.04 K/mm3 (0.00-0.10); Basophils Percent Auto 0.7 % (0.0-1.0); Eosinophils Absolute Auto 0.14 K/mm3 (0.02-0.50); Eosinophils Percent Auto 2.3 % (1.0-6.0); Hematocrit 40.4 % (40.0-54.0); Hemoglobin 13.3 g/dL (14.0-18.0); Immature Granulocyte Absolute 0.02 K/mm3 (0.00-0.00); Immature Granulocyte Percent A 0.3 % (0.0-0.0); Lymphocytes Absolute Auto 2.02 K/mm3 (1.10-4.50); Lymphocytes Percent Auto 33.6 % (18.0-42.0); Mean Corpuscular HGB Conc 32.9 g/dL (32-36); Mean Corpuscular Hemoglobin 27.9 pg (27.0-31.0); Mean Corpuscular Volume 84.7 fL (78.0-102.0); Mean Platelet Volume 10.1 fl (8.7-11.0); Monocytes Absolute Auto 0.61 K/mm3 (0.10-0.90); Monocytes Percent Auto 10.1 % (2.0-11.0); Neutrophils Absolute Auto 3.18 K/mm3 (1.70-7.20); Platelet Count Result 222 K/mm3 (150-420); Red Blood Count 4.77 M/mm3 (4.70-6.10); Red Cell Distribution Width 12.7 % (11.6-14.4)
[2024-06-29 13:40] LABS: Add Urine Microscopic? YES; Appearance Urine Clear (Clear); Bilirubin Urine 1+ (Negative); Blood Urine Negative (Negative); Color Urine Dark Yellow (Yellow); Glucose Urine UA Trace (Negative); Ketones Urine Negative (Negative); Leukocyte Esterase Ur Negative LEU/UL (Negative); Nitrate Urine Negative (Negative); Protein Urine Negative (Negative); Urobilinogen Urine >=8.0 mg/dL (0.2-1.0)
[2024-06-29 13:46] LABS: Bacteria Urine 1+ /hpf; RBC Urine 0-2 /hpf (0-2); Squamous Epithelial Cell Urine None Seen /hpf (Few); WBC Urine 0-3 /hpf (0-3)
[2024-06-29 13:48] LABS: Amphetamine Screen Urine Negative (Negative); Barbiturate Screen Urine Negative (Negative); Benzodiazepines Screen Urine Negative (Negative); Cannabinoid Screen Urine Negative (Negative); Cocaine Screen Urine Negative (Negative); Methadone Screen Urine Negative (Negative); Opiate Screen Urine Negative (Negative); Phencyclidine Screen Urine Negative (Negative)
[2024-06-29 13:56] LABS: Alanine Aminotransferase 461 U/L (16-63); Albumin Level 3.6 g/dL (3.4-5.0); Alkaline Phosphatase 329 U/L (46-116); Anion Gap 12 mmol/L (4-12); Bilirubin,Total 0.9 mg/dL (0.00-1.00); Blood Urea Nitrogen 8 mg/dL (7-18); Calcium 8.3 mg/dL (8.5-10.1); Carbon Dioxide 25 mmol/L (21-32); Chloride 101 mmol/L (98-108); Estimated CRCL calculation 106 ml/min; Estimated Glomerular Filt Rate > 60; Glucose 141 mg/dL (70-99); Osmolality Calculated 286 mOsm/kg (285-295); Potassium 2.8 mmol/L (3.5-5.1); Sodium 138 mmol/L (136-145); Total Protein 6.5 g/dL (6.4-8.2)
[2024-06-29 13:58] LABS: Aspartate Amino Transferase 780 U/L (15-37)
[2024-06-29 13:59] LABS: Acetaminophen < 2 ug/mL (10-30); Ethanol < 3 mg/dL (0-6)
[2024-06-29 14:15] LABS: Troponin I 135.1 ng/L (0.00-60.4)
--- OUTSIDE RECORDS SUMMARY | 2024-06-29 14:15 | XMS_ITS ---
Author Organization Unknown Address [address] [place] [phone] Phone Care Team Providers Care Compass Operator Name Role Phone RACHELLE GUPTA Attending Unavailable [...] DIFF - Collect Date/T beny: 01/12/2024 09:03 [facility] ID: [id number] [place] [address], [id number] LOINC: 36587-8 Test Value Unit Reference Range Code Code System Flag WBC 6.5 10^3uL L=4.8 H=10.8 RBC 4.77 10^6uL L=4.60 H=6.20 HEMOGLOBIN 13.6 g/dL L=14.0 H=18.0 718-7 LOINC L HEMATOCRIT 40.0 VOL% L=42.0 H=52.0 4544-3 LOINC L MCV 83.9 fL L=80.0 H=94.0 MCH 28.5 pg L=27.0 H=32.0 MCHC 34.0 g/dL L=32.0 H=36.0 PLATELETS 190 10^3uL L=100 H=400 59181-5 LOINC RDW 13.0 % L=11.7 H=15.5 %GRAN 45.9 % L=40.0 H=70.0 46704-5 LOINC %LYMPH 40.3 % L=20.0 H=45.0 736-9 LOINC %MONO 10.1 % L=2.0 H=10.0 61058-6 LOINC H %EOS 2.9 % L=0.0 H=6.0 713-8 LOINC %BASO 0.6 % L=0.0 H=3.0 706-2 LOINC #NEUT 3.0 10^3uL L=1.9 H=7.6 00911-6 LOINC #LYMPH 2.6 10^3uL L=0.9 H=4.9 82402-0 LOINC #MONO 0.7 10^3uL L=0.1 H=0.9 64762-1 LOINC #EOS 0.2 10^3uL L=0.0 H=0.6 712-0 LOINC #BASO 0.04 10^3uL L=0.00 H=0.10 77246-7 LOINC #IM GRANS 0.0 10^3uL L=0.0 H=7.0 20804-1 LOINC %IM GRANS 0.2 % L=0.0 H=5.0 45854-3 LOINC %NRB 0.0 L=0.0 H=0.2 33375-9 LOINC #NRB 0.000 L=0.000 H=0.012 28245-4 LOINC MANUAL DIFF NOT INDICATED RBC MORPH NOT INDICATED COMPREHENSIVE METABOLIC PANE L - Collect Date/Time: 01/12/2024 09:03 [facility] ID: [id number] [address] [place], [place], [phone] LOINC: 85360-2 Test Value Unit Reference Range Code Code [...] LOINC H ANION GAP 9 L=10 H=20 04037-2 LOINC L OSMOLALITY 288 mOs/kG L=280 H=296 71425-7 LOINC BUN/CREAT 8.6 3097-3 LOINC CALCIUM 9.4 mg/dL L=8.3 H=10.5 61121-7 LOINC AST 56 U/L L=15 H=46 1920-8 LOINC H ALT 63 U/L L=9 H=72 1742-6 LOINC ALKALINE PHOS 159 U/L L=38 H=126 6768-6 LOINC H TOTAL BILI 0.5 mg/dL L=0.2 H=1.3 1975-2 LOINC ALBUMIN 4.3 G/dL L=3.5 H=5.0 1751-7 LOINC TOTAL PROTEIN 6.5 g/L L=6.3 H=8.2 2885-2 LOINC A/G RATIO 2.0 53504-6 LOINC AGE 28 40267-1 LOINC eGFR NON-AFR 143 ml/min eGFR AFR AMER 173 ml/min HGB A1C -GLYCOHEMOGLOBIN - C ollect Date/Time: 01/12/2024 09:03 [facility] ID: [id number] [address] [place] [address], [phone] LOINC: 4548-4 Test Value Unit Reference Range Code Code System Flag HGBA1C 4.9 % 4548-4 LOINC LIPID PANEL - Collect Date/T beny: 01/12/2024 09:03 [facility] ID: [id number] [address] [place] [address], [id number] LOINC: 93421-1 Test Value Unit Reference Range Code Code System Flag FASTING YES CHOLESTEROL 96 mg/dL L=0 H=200 2093-3 LOINC TRIGLYCERIDE 70 mg/dL L=0 H=150 2571-8 LOINC HDL 50 mg/dL L=40 H=60 2084-9 LOINC LDL 33 mg/dL 2088-1 LOINC PROLACTIN - Collect Date/José e: 01/12/2024 09:03 [facility] ID: [id number] [address] [place] [address], [phone] LOINC: 2842-3 Test Value Unit Reference Range Code Code System Flag Prolactin 58.2 3.6-31.5 2842-3 LOINC H Social History Type Status Start Date End Date Code Code Syst em Smoking History Never smoker (Never Smoked) 519370996 SNOMED CT Sex Male Hospital Discharge Instructions Should you have any questions prior to discharge, please contact a member of your healthcare team. If you have left the hospital and have any questions, please contact your primary care physician. Reason For Referral No Data Found Plan of Treatment No Data Found Encounters Encounter Diagnosis Start Date Code Code Sys tem Other shelter (current) drug therapy 01/12/2024 SNOMED-CT Personal Care Team Section Performer Name Performer Role Active Date Inactive RUTH Pollard PCP - Primary care physician 2022-03-06
--- OUTSIDE RECORDS SUMMARY | 2024-06-29 14:15 | XMS_ITS | Referral Summary ---
Author Organization [facility] al Address [address] [place] [address] Care Team Providers Care Video Specialist Name Role Phone Robbin Shaikh MD Primary Care Provider [phone] Allergies Active Allergy Reactions Criticality Noted Date [...] (06/14/2021): Added automatically from request for surgery [id number] Scoliosis 06/12/2021 Overview (06/14/2021): Added automatically from request for surgery [id number] Weight loss 02/28/2020 Assessment & Plan (03/01/2020 3:17 PM CDT): - Pt has had approx 25 lbs wt loss over possible 4 months, etiology unclear possibly 2/2 psychosis - Initial BMI calculated based off pt's inaccurate reported height. BMI 19.31 - nutrition consult, double portions - W/up for possible causes - CTM weight Unspecified psychosis not du e to a [...] noncompliance while at home. Placement at a fci may not be possible and pt may return to mother's home. Mother struggled to enforce medication compliance as works days and nights etc. Pt agreeable to receiving HELTON. - Continue VOLUNTARY hospitalization - Continue Risperidone [...] to work with SW regarding placement in fci. Code Status: Full Code Precautions: Suicide, elopement, assault Diet: Adult Diet Regular; Send on Disposables, Deliver tray to nursing, Fitting Room Operator check DVT Prophylaxis: None as pt is ambulating at least TID Dispo: Anticipate unclear Mild intellectual disability 02/27/2020 Mixed hyperlipidemia 08/16/2018 Assessment & Plan (03/02/2020 2:20 PM CDT): - Lipid panel wnl, A1c 5.0 - Given pt's recent significant wt loss (25 lbs in 4 months), will discontinue Rosuvastatin 5 mg q HS Communication disorder Social History Tobacco Use Types [...] often do you attend chur ch or pentecostalism services? 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 Gender Identity Male 09/03/2023 7:44 AM CDT Sexual Orientation Straight 09/03/2023 7: 44 AM CDT Last Filed Vital Signs Vital Sign Reading Time Taken Comments Blood Pressure 138/88 12/05/2023 6:15 PM CDT Pulse 67 12/05/2023 6:15 PM CDT Temperature 35.6 C (96 F) 12/05/2023 6:14 PM CDT Respiratory Rate 17 12/05/2023 6:14 PM CDT Oxygen Saturation 96% 12/05/2023 6:15 PM CDT Inhaled Oxygen Concentration - - Weight 81.6 kg (180 lb) 12/04/2023 10:07 PM CDT Height 157.5 cm (5' 2 ) 12/04/2023 10:07 PM CDT Body Mass Index 32.92 12/04/2023 10:07 PM CDT Plan of Treatment Not on file [place] [address] [address] [facility] [facility] [place] Advance Directives For more information, please contact: [phone] * Full Code (Latest Code Status on File) Date Activated Date Inactivated Comments 06/13/2021 7:51 AM 06/15/2021 12:10 AM * Full Code Date Activated Date Inactivated Comments 02/27/2020 10:58 AM 03/05/2020 8:51 PM Care Teams Video Specialist Relationship Specialty Start Date End Date Robbin Shaikh MD [address] [place] [address] PCP - General Family Medicine 08/16/18
--- OUTSIDE RECORDS SUMMARY | 2024-06-29 14:15 | XMS_ITS ---
Author Organization Unknown Address [address] [place] [phone] Phone Care Team Providers Care Hcc Coders Name Role Phone BERNA Sandoval JORDON Attending [...] ANTIGEN RAPID - Collect Date/Time: 06/28/2024 07:10 [facility] ID: [id number] [address] [place] [address], [phone] LOINC: 86320-3 Test Value Unit Reference Range Code Code System Flag SARS ANTIGEN RAPID POSITIVE 64232-6 LOINC A SEND TO I[facility]? YES 4 PLEX RESPIRATORY COVID FLU RSV PCR - Collect Date/Time: 06/28/2024 04:00 [facility] ID: [id number] [address] [place], [place], [phone] LOINC: 38785-7 Test Value Unit Reference Range Code Code System Flag SARS CoV2 PCR POSITIVE A FLU A PCR NEGATIVE FLU B PCR NEGATIVE RSV PCR NEGATIVE SEND TO I[facility]? YES Social History Type Status Start Date End Date Code Code Syst em Smoking History Never smoker (Never Smoked) [id number] SNOMED CT Sex Male Hospital Discharge Instructions [...]
--- OUTSIDE RECORDS SUMMARY | 2024-06-29 14:15 | XMS_ITS | CONTINUITY OF CARE DOCUMENT ---
Author Name hui ames Address Unknown Organization [facility] Address [address] [facility] [address] [place] [address] Phone [phone] Care Team Providers Care Fisheries Technician Name Role Phone Gin JARA, Everton Unavailable BRIGID MINA MD P Unavailable [phone] BRIGID MINA MD Unavailable [phone] PROBLEMS Condition Status Date Provider Notes Heterozygous familial hypercholesterolemia active 2019 Everton Greenfield MD Left ventricular hypertrophy active Everton Greenfield MD ADHD active Everton Greenfield MD Seizures active Everton Greenfield MD Depression active Everton Greenfield MD Family Hx heart disease active Everton Antonio ra, MD ENCOUNTERS Date Type Provider Location Encounter Diag nosis - In-person encounter Office Visit Everton Greenfield MD [facility] - In-person encounter Office Visit Everton Greenfield MD [facility] - In-person encounter Office Visit Everton Greenfield MD [facility] - In-person encounter Office Visit Everton Greenfield MD [facility] Heterozygous familial hypercholesterolemiaLeft ventricular hypertrophyADHDSeizuresDepressionFamily Hx [...] Policy type / Coverage type Rakel red democrat [place] MEDICAID (2) Medicaid [id number] ADVANCE DIRECTIVES Name Date DISCUSSED - NO [...]
--- OUTSIDE RECORDS SUMMARY | 2024-06-29 14:15 | XMS_ITS | Clinical Summary ---
Author Organization [facility] al Address [address] [place] [address] Care Team Providers Care Farm Tractor Operator Name Role Phone Robbin Shaikh MD Primary Care Provider [phone] Allergies Active Allergy Reactions Criticality Noted Date [...] (06/14/2021): Added automatically from request for surgery [id number] Scoliosis 06/12/2021 Overview (06/14/2021): Added automatically from request for surgery [id number] Weight loss 02/28/2020 Assessment & Plan (03/01/2020 [...] noncompliance while at home. Placement at a fpc may not be possible and pt may [...] to work with SW regarding placement in fpc. Code Status: Full Code Precautions: Suicide, elopement, assault Diet: Adult Diet Regular; Send on Disposables, Deliver tray to nursing, Baling Machine Tender check DVT Prophylaxis: None as pt is ambulating at least TID Dispo: Anticipate unclear Mild intellectual disability 02/27/2020 Mixed hyperlipidemia 08/16/2018 Assessment & Plan (03/02/2020 2:20 PM CDT): - Lipid panel wnl, A1c 5.0 - Given pt's recent significant wt loss (25 lbs in 4 months), will discontinue Rosuvastatin 5 mg q HS Communication disorder Surgical History Surgery Date Site/Laterality [...] often do you attend chur ch or roman catholic services? Never 02/27/2020 Do you belong to any clubs o r organizations such as anabaptist groups, unions, fraternal or athletic groups, or [...] place to sleep or slept in a snf (including now)? 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 Gender Identity Male 09/03/2023 7:44 AM CDT [...] patient[place] [id number] [facility] [place] [address] [facility] Advance Directives For more information, please contact: [phone] * Full Code (Latest Code Status on File) Date Activated Date Inactivated Comments 06/13/2021 7:51 AM 06/15/2021 12:10 AM * Full Code Date Activated Date Inactivated Comments 02/27/2020 10:58 AM 03/05/2020 8:51 PM Care Teams Farm Tractor Operator Relationship Specialty Start Date End Date Robbin Shaikh MD [address] [place] [address] PCP - General Family Medicine 08/16/18
--- OUTSIDE RECORDS SUMMARY | 2024-06-29 14:16 | XMS_ITS | Clinical Summary ---
Author Organization [facility] Address [address] [place] [address] Care Team Providers Care Ict Trainer Name Role Phone Harpal Cates MD Primary Care Provider [phone] Allergies Active Allergy Reactions Criticality Noted Date [...] Department Care Team Description 06/24/2024 10:13 PM DIRECTOR EXPORT - 06/25/2024 12:43 AM [facility] Emergency [place] [facility] [address] [place] [address] Asad Venegas, DO Chest Pain Discharge Disposition: Home or Self Care (Routine Discharge) 06/24/2024 Travel 04/13/2024 9:45 AM DIRECTOR EXPORT Office Visit [facility] [address] [place], [place] [address] [place] [address] Heriberto Danielle MD Postop Followup (Roya falk) [...] Sex Assigned at Male 06/24/2024 10:17 PM DIRECTOR EXPORT Legal Sex Male 8:16 PM CDT Gender Identity Not on file Sexual Orientation Not on file Last Filed Vital Signs Vital Sign Reading Time Taken Comments Blood Pressure 128/90 06/25/2024 12:30 AM DIRECTOR EXPORT Pulse 95 06/25/2024 12:30 AM DIRECTOR EXPORT Temperature 35.8 C (96.5 F) 06/24/2024 9:56 PM DIRECTOR EXPORT Respiratory Rate 16 06/25/2024 12:30 AM DIRECTOR EXPORT Oxygen Saturation 100% 06/25/2024 12:30 AM DIRECTOR EXPORT Inhaled Oxygen Concentration - - Weight 80.7 kg (178 lb) 06/24/2024 9:56 PM DIRECTOR EXPORT Height 167.6 cm (5' 6 ) 06/24/2024 9:56 PM DIRECTOR EXPORT Body Mass Index 28.73 06/24/2024 9:56 PM DIRECTOR EXPORT Plan of Treatment Health Maintenance Due Date [...] 2024 Influenza Adult (#1) 2024 PHQ-2 (Physician Stebbins) 05/25/2024 Hepatitis B Vaccines Completed 08/28/2000, 06/01/1996, [...] Comments ECG 12-LEAD Routine 06/25/2024 12:36 AM DIRECTOR EXPORT TROPONIN, QUANT STAT 06/25/2024 12:15 AM DIRECTOR EXPORT XR CHEST PORTABLE STAT 06/24/2024 10: 31 PM DIRECTOR EXPORT TROPONIN, QUANT STAT 06/24/2024 10:19 PM DIRECTOR EXPORT COMPREHENSIVE METABOLIC PANEL STAT 06/24/2024 10:19 PM DIRECTOR EXPORT CBC W/DIFF AUTOMATED STAT 06/24/2024 10:19 PM DIRECTOR EXPORT ECG 12-LEAD Routine 06/24/2024 10:03 PM DIRECTOR EXPORT from Last 3 Months Results * ECG 12 lead (06/25/2024 12:36 AM DIRECTOR EXPORT) Only the most recent of2 resultswithin the time period is included. 06/25/2024 12:3 6 AM DIRECTOR EXPORT Narrative [facility] - 06/25/2024 9:02 AM DIRECTOR EXPORT [facility] [address] [address] Test Date: 2024-06-25 Pat Name: LUIS ARMANDO TERRY Department: 3 Room: EXAM 101 Gender: Male Marriage Counselor Minister: : 1995 Requested By: ASAD VENEGAS Order Number: [id number] Andrey MD: Pedro Oviedo Measurements Intervals [place] Rate: 84 P: 47 PA: 116 QRS: 57 QRSD: 101 T: 53 QT: 377 QTc: 447 Interpretive Statements SINUS RHYTHM WITH SINUS ARRHYTHMIA WITH SHORT PA INTERVAL CTOR EXPORT Procedure Note Pedro Oviedo MD - 06/25/[address] [place] [id number] Test Date: 2024-06-25 Pat Name: LUIS ARMANDO TERRY Department: 3 Room: EXAM 101 Gender: Male Marriage Counselor Minister: : 1995 Requested By: ASAD VENEGAS Order Number: [id number] Reading MD: Pedro Oveido Measurements Intervals [place] Rate: 84 P: 47 PA: 116 QRS: 57 QRSD: 101 T: 53 QT: 377 QTc: 447 Interpretive Statements SINUS RHYTHM WITH SINUS ARRHYTHMIA WITH SHORT PA INTERVAL CTOR EXPORT Asad Venegas DO ECG ORDERABLES Final Result Performing Organization Address [facility] de Phone Number [facility] * TROPONIN, QUANT (06/25/2024 12:15 AM DIRECTOR EXPORT) Only the most recent of2 resultswithin the time period is included. TROPONIN I HIGH SENSITIVITY 9 0 - 76 ng/L 06/25/2024 12:39 AM DIRECTOR EXPORT [facility] 06/25/2024 12:1 5 AM DIRECTOR EXPORT Asad Venegas DO LABORATORY Final Result Performing Organization Address [facility] Co de Phone Number [facility] [place] [address], * XR CHEST PORTABLE (06/24/2024 10:31 PM DIRECTOR EXPORT) Anatomical Region Laterality Modality Chest Radiographic Debbie ging 06/24/2024 10:4 0 PM DIRECTOR EXPORT Impressions 06/24/2024 10:41 PM DIRECTOR EXPORT IMPRESSION: ======== 1. No acute cardiopulmonary findings. Referred By: Interpreted By: Ryan Herbert MD, 06/24/2024 10:40 PM Narrative 06/24/2024 10:41 PM DIRECTOR EXPORT [address] [place] [address] Examination: Chest x-ray 1 view Exam Date/Time: 06/24/2024 10:25 PM Reason For Exam: chest pain radiating to back Chest pain onset one hour ago Comparison: Chest radiograph 10/15/2007 Technique: Single AP view of the chest was obtained. Findings: Heart size normal. No large effusion. No pneumothorax. No focal infiltrate or consolidative changes. Pulmonary vasculature within normal limits. ======== Procedure Note Ryan Herbert MD - 06/24/[address] [place] [address] Examination: Chest x-ray 1 view Exam Date/Time: [...] By: Ryan Herbert MD, 06/24/2024 10:40 PM Asad Venegas DO GENERAL IMAGING Final Result * (ABNORMAL) COMPREHENSIVE METABOLIC PANEL (06/24/2024 10:19 PM [facility]) SODIUM S/P/B 141 136 - 145 MMOL/L 06/24/2024 10:50 PM [facility] POTASSIUM S/P/B 3.5 3.5 - 5.1 MMOL/L 06/24/2024 10:50 PM [facility] CHLORIDE S/P/B 102 98 - 107 MMOL/L 06/24/2024 10:50 PM [facility] CO2 30.4 21.0 - 32.0 MMOL/L 06/24/2024 10:50 PM [facility] GLUCOSE 106(H) 70 - 99 MG/DL 06/24/2024 10:50 PM [facility] Comment: FASTING GLUCOSE 100 TO 125 MG/DL IS CONSISTENT WITH IMPAIRED FASTING GLUCOSE. FASTING GLUCOSE >125 MG/DL IS CONSISTENT WITH DIABETES. RANDOM GLUCOSE >200 MG/DL WITH HYPERGLYCEMIC SYMPTOMS IS CONSISTENT WITH DIABETES. PER ADA GUIDELINES BUN 1(L) 6 - 24 MG/DL 06/24/2024 10:50 PM [facility] CREATININE S/P/B 0.83 0.70 - 1.30 MG/DL 06/24/2024 10:50 PM [facility] CALCIUM S/P/B 9.0 8.4 - 10.5 MG/DL 06/24/2024 10:50 PM [facility] BILIRUBIN TOTAL S/P/B 0.4 0.2 - 1.0 MG/DL 06/24/2024 10:50 PM [facility] Comment: THIS ASSAY IS NOT RECOMMENDED FOR PATIENTS UNDERGOING TREATMENT WITH ELTROMBOPAG DUE TO THE POTENTIAL FOR FALSELY ELEVATED RESULTS. ALKALINE PHOSPHATASE S/P/B 322(H) 45 - 115 U/L 06/24/2024 10:50 PM [facility] AST 38(H) 15 - 37 U/L 06/24/2024 10:50 PM [facility] ALT 61 16 - 63 U/L 06/24/2024 10:50 PM [facility] TOTAL PROTEIN S/P/B 7.2 6.4 - 8.2 G/DL 06/24/2024 10:50 PM DIRECTOR EXPORT [facility] ALBUMIN S/P/B 4.4 3.4 - 5.0 G/DL 06/24/2024 10:50 PM [facility] ANION GAP 8.6 5.0 - 15.0 MMOL/L 06/24/2024 10:50 PM [facility] OSMOLALITY (CALC) 288 MOSM/KG 025 10:50 PM DIRECTOR EXPORT [facility] Comment:REFERENCE RANGE NOT ESTABLISHED GFR ESTIMATE >90 >89 ML/MIN/1. 73 M2 06/24/2024 10:50 PM [facility] GFR NOTES GFR REFERENCE S: 06/24/2024 10:50 PM [facility] Comment: THE ESTIMATED GFR IS CALCULATED [...] <15 ml/min/1.73 m2 06/24/2024 10:1 9 PM DIRECTOR EXPORT us Asad Venegas DO LABORATORY Final Result [facility] [address] [place] [address], * CBC W/DIFF AUTOMATED (06/24/2024 10:19 PM DIRECTOR EXPORT) WBC 10.51 4.00 - 10.80 x10'3/uL 06/24/2024 10:26 PM DIRECTOR EXPORT [facility] RBC 5.40 4.50 - 6.10 x10'6/uL 06/24/2024 10:26 PM [facility] HGB 15.1 13.0 - 18.0 G/DL 06/24/2024 10:26 PM [facility] HCT 44.3 37.0 - 52.0 % 06/24/2024 10:26 PM [facility] MCV 82.0 78.0 - 100.0 FL 06/24/2024 10:26 PM [facility] MCH 28.0 27.0 - 31.0 PG 06/24/2024 10:26 PM [facility] MCHC 34.1 33.0 - 36.0 G/DL 06/24/2024 10:26 PM [facility] RDW 12.7 11.5 - 14.5 % 06/24/2024 10:26 PM [facility] PLT 306 150 - 350 x10'3/uL 06/24/2024 10:26 PM [facility] MPV 9.6 7.4 - 10.4 FL 06/24/2024 10:26 PM [facility] CBC COMMENT NORMAL REFERENCE RANGE NOT ESTABLISHED FOR THE PROPORTIONAL LEUKOCYTE DIFFERENTIAL. 06/24/2024 10:26 PM [facility] NEUTROPHILS % 59.1 % 06/24/2024 10:26 PM [facility] LYMPHOCYTES % 31.7 % 06/24/2024 10:26 PM [facility] MONOCYTES % 8.0 % 06/24/2024 10:26 PM [facility] EOSINOPHILS % 0.6 % 06/24/2024 10:26 PM [facility] BASOPHILS % 0.4 % 06/24/2024 10:26 PM [facility] IMMATURE GRANS % 0.2 % 06/24/19 10:26 PM [facility] NRBC % 0.0 % 06/24/2024 10:26 PM [facility] ABS. NEUTROPHILS 6.22 1.60 - 8.30 x10'3/uL 06/24/2024 10:26 PM [facility] ABS. LYMPHOCYTES 3.33 0.80 - 4.70 x10'3/uL 06/24/2024 10:26 PM DIRECTOR EXPORT [facility] ABS. MONOCYTES 0.84 0.00 - 1.50 x10'3/uL 06/24/2024 10:26 PM DIRECTOR EXPORT [facility] ABS. EOSINOPHILS 0.06 0.00 - 0.40 x10'3/uL 06/24/2024 10:26 PM DIRECTOR EXPORT [facility] ABS. BASOPHILS 0.04 0.00 - 0.20 x10'3/uL 06/24/2024 10:26 PM DIRECTOR EXPORT [facility] ABS. IMMATURE GRANULOCYTES 0.02 0.00 - 0.03 x10'3/uL 06/24/2024 10:26 PM DIRECTOR EXPORT [facility] ABS. NUCLEATED RBC'S 0.00 0.00 - 0.01 x10'3/uL 06/24/2024 10:26 PM DIRECTOR EXPORT [facility] 06/24/2024 10:1 9 PM DIRECTOR EXPORT us Asad Venegas DO LABORATORY Final Result [facility] [address] [place] [address], from Last 3 Months Insurance Care Teams Ict Trainer Relationship Specialty Start Date End Date Harpal aCtes MD [address] [place] [phone] PCP - General FAMILY PRACTICE 11/12/20
[2024-06-29] MEDS: POTASSIUM CHLORIDE 20 MEQ ER TABLET 40 MEQ PO (14:46)
[2024-06-29] MEDS: KCL 20 MEQ/SW 100 ML 100 ML 50 MEQ IVPB ×2 (14:59→16:56)
[2024-06-29] MEDS: SODIUM CHLORIDE 0.9% IV 500 ML 100 ML IV CONT (15:05)
[2024-06-29 15:17] LABS: Prothrombin Time 11.5 Seconds (9.50-12.1)
[2024-06-29 16:04] LABS: NT Pro B Type Natriuretic Pept 208 pg/mL (0-125); Thyroid Stimulating Hormone 1.39 uIU/mL (0.36-3.74); Troponin I 122.6 ng/L (0.00-60.4)
--- NOTE | 2024-06-29 16:28 | ECG_ITS ---
Test Date: 2024-06-29 16:36:07 Measurements Intervals [place] Rate: 81 P: 57 MO: 151 QRS: 51 QRSD: 100 T: 45 QT: 377 QTc: 439 Interpretive Statements SINUS RHYTHM ST ELEVATION IN DIFFUSE LEADS- PROBABLY EARLY REPOLARIZATION MINIMAL Q WAVES- DIFFUSE LEADS BORDERLINE ECG Compared to ECG 06/29/2024 13:28:00 No significant changes Electronically Signed On 06-29-2024 18:06:24 [employer] DEVELOPER by Stevie Morrison D.O.
[2024-06-29 17:00] LABS: Ammonia < 10 umol/L (11-32)
[2024-06-29 17:01] LABS: Magnesium 2.1 mg/dL (1.8-2.4)
--- NOTE | 2024-06-29 17:53 | PC.NURSE ---
spoke with pt mother updated pt to be admitted upstairs for the night pt gave consent
--- NOTE | 2024-06-29 18:57 | PC.NURSE ---
1400 PT CALM AND STATES HE IS WANTING HELP
--- NOTE | 2024-06-29 18:57 | PC.NURSE ---
1600 PT CONTINUES TO BE CALM AND COOPERATIVE STATES HE JUST WANTS HELP
--- NOTE | 2024-06-29 18:58 | PC.NURSE ---
2987 PTS MOTHER NOTIFIED THAT PT WOULD BE ADMITTED UPSTAIRS TONIGHT PT GAVE CONSENT
--- NOTE | 2024-06-29 19:02 | PC.NURSE ---
1800 PT REMAINS CO
--- NOTE | 2024-06-29 19:02 | PC.NURSE ---
1800 PT REMAINS CALM AND COOPERATIVE PT GOING UPSTAIRS
--- NOTE | 2024-06-29 19:32 | ADMGEN ---
This patient, Luis Armando Harmon, was admitted to 2nd Floor Room 211-1. Patient/family oriented to hospital policies and general routines including ID bracelet, bed and alarms, visiting hours, pain management, procedures, bathroom and other care routines, personal items, smoking policy, room service/diet, and visiting hours. Pt advised that if he wishes to leave to please let nursing staff know beforehand, pt is resting in bed at this time Information on how to activate the Rapid Response Team has been discussed. Patient/Family are encouraged to report perceived risks to care and to ask questions if they do not understand what they are told or what they should do.
[2024-06-29] MEDS: risperiDONE 1 MG TABLET 4 MG PO (19:52)
[2024-06-29] MEDS: levETIRAcetam 500 MG TABLET PO (19:52)
[2024-06-29] MEDS: risperiDONE 0.25 MG TABLET 0.5 MG PO (19:54)
[2024-06-29] MEDS: traZODone HCL 50 MG TABLET 150 MG PO (19:54)
--- NOTE | 2024-06-29 20:25 | PC.NURSE ---
Spoke with patient's mother, Rufina Salas, to get patient's medication list.
[2024-06-30] VITALS: BP 119/84; PULSE 81; RESP 16; TEMP 37.1; O2SAT 97
--- NOTE | 2024-06-30 03:20 | PC.NURSE ---
Pt asleep and no signs of discomfort noted.
--- NOTE | 2024-06-30 04:20 | PC.NURSE ---
Pt asleep and no signs of discomfort noted.
[2024-06-30 05:25] LABS: Basophils Absolute Auto 0.05 K/mm3 (0.00-0.10); Basophils Percent Auto 0.8 % (0.0-1.0); Eosinophils Absolute Auto 0.26 K/mm3 (0.02-0.50); Eosinophils Percent Auto 4.4 % (1.0-6.0); Hematocrit 39.4 % (40.0-54.0); Hemoglobin 12.7 g/dL (14.0-18.0); Immature Granulocyte Absolute 0.01 K/mm3 (0.00-0.00); Immature Granulocyte Percent A 0.2 % (0.0-0.0); Lymphocytes Absolute Auto 2.32 K/mm3 (1.10-4.50); Lymphocytes Percent Auto 39.1 % (18.0-42.0); Mean Corpuscular HGB Conc 32.2 g/dL (32-36); Mean Corpuscular Hemoglobin 27.5 pg (27.0-31.0); Mean Corpuscular Volume 85.5 fL (78.0-102.0); Mean Platelet Volume 10.3 fl (8.7-11.0); Monocytes Absolute Auto 0.57 K/mm3 (0.10-0.90); Monocytes Percent Auto 9.6 % (2.0-11.0); Neutrophils Absolute Auto 2.73 K/mm3 (1.70-7.20); Neutrophils Percent Auto 45.9 % (50.0-70.0); Platelet Count Result 273 K/mm3 (150-420); Red Blood Count 4.61 M/mm3 (4.70-6.10); Red Cell Distribution Width 13.1 % (11.6-14.4); White Blood Count 5.9 K/mm3 (4.8-10.8)
[2024-06-30 05:41] LABS: Alanine Aminotransferase 548 U/L (16-63); Albumin Level 3.3 g/dL (3.4-5.0); Alkaline Phosphatase 298 U/L (46-116); Anion Gap 9 mmol/L (4-12); Bilirubin,Total 0.8 mg/dL (0.00-1.00); Blood Urea Nitrogen 8 mg/dL (7-18); Calcium 8.4 mg/dL (8.5-10.1); Carbon Dioxide 27 mmol/L (21-32); Chloride 107 mmol/L (98-108); Estimated CRCL calculation 125 ml/min; Estimated Glomerular Filt Rate > 60; Glucose 103 mg/dL (70-99); Osmolality Calculated 294 mOsm/kg (285-295); Potassium 4.1 mmol/L (3.5-5.1); Sodium 143 mmol/L (136-145); Total Protein 6.2 g/dL (6.4-8.2)
[2024-06-30 05:43] LABS: Aspartate Amino Transferase > 796 U/L (15-37)
[2024-06-30 05:57] LABS: Troponin I 79.7 ng/L (0.00-60.4)
--- NOTE | 2024-06-30 06:00 | PC.NURSE ---
Pt refused the heparin injection.
--- NOTE | 2024-06-30 06:25 | PC.NURSE ---
Patient asked this nurse to call his mother and ask if she would pick him up. Spoke with mother, Rufina Salas and she said she cannot pick him up and that she has a no contact order against him. Patient notified.
--- NOTE | 2024-06-30 07:05 | PC.NURSE ---
Pt up to the nurses station stating that he wants to go home. Pt didnt have any way to get home and his family refuses to get him due to a restraining order against him.
--- NOTE | 2024-06-30 07:10 | PC.NURSE ---
Patient asked that his friend Faraz be contacted and asked to come get him. Faraz's phone number obtained from Rufina Salas. Patient gave permission for Faraz to receive his medical information when being called.
--- NOTE | 2024-06-30 07:28 | PC.NURSE ---
Spoke with Faraz Bar @ [phone]. Per Faraz, he is unwilling to come and get patient. Relayed this information to patient.
[2024-06-30 08:00] VITALS: BP 133/82; PULSE 79; RESP 18; TEMP 36.1; O2SAT 96
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
[2024-06-30] MEDS: cloNIDine HCL 0.1 MG TABLET PO ×2 (09:33→17:48)
[2024-06-30] MEDS: levETIRAcetam 500 MG TABLET PO ×2 (09:33→21:09)
[2024-06-30 09:38] LABS: Hepatitis A Antibody IgM NON-REACTIVE (NON-REACTIVE); Hepatitis B Core Antibody NON-REACTIVE (NON-REACTIVE); Hepatitis B Surface Antigen NON-REACTIVE (NON-REACTIVE); Hepatitis C Virus Antibody NON-REACTIVE (NON-REACTIVE)
[2024-06-30] MEDS: HEPARIN SODIUM 5,000 UNITS/ML VIAL 5000 UNITS SUB-Q ×2 (14:00→21:08)
[2024-06-30 16:00] VITALS: BP 125/75; PULSE 82; RESP 16; TEMP 36.6; O2SAT 97
[2024-06-30] MEDS: risperiDONE 0.25 MG TABLET 0.5 MG PO (21:09)
[2024-06-30] MEDS: traZODone HCL 50 MG TABLET 150 MG PO (21:09)
[2024-06-30] MEDS: risperiDONE 1 MG TABLET 4 MG PO (21:09)
[2024-06-30] MEDS: NICOTINE (*PBKC) 21 MG PATCH 1 PATCH TRANSDERM (21:54)
[2024-07-01] VITALS: BP 119/80; PULSE 77; RESP 16; TEMP 36.7; O2SAT 96
[2024-07-01] MEDS: HEPARIN SODIUM 5,000 UNITS/ML VIAL 5000 UNITS SUB-Q (05:51)
[2024-07-01 08:00] VITALS: BP 137/99; PULSE 100; RESP 18; TEMP 36.8; O2SAT 100
[2024-07-01] MEDS: levETIRAcetam 500 MG TABLET PO (08:13)
[2024-07-01] MEDS: NICOTINE (*PBKC) 21 MG PATCH 1 PATCH TRANSDERM (08:13)
[2024-07-01] MEDS: cloNIDine HCL 0.1 MG TABLET PO ×2 (08:14→16:21)
[2024-07-01] MEDS: cefTRIAXone 2 GM/NS 100 ML 2 GM/100 ML BAG IVPB (10:40)
[2024-07-01 11:14] LABS: SARS-CoV-2 RNA PCR Positive (Negative)
[2024-07-01 11:16] LABS: Influenza A QL RT-PCR Negative (Negative); Influenza B QL RT-PCR Negative (Negative); RSV RNA, RT-PCR Negative (Negative)
[2024-07-01 11:19] LABS: Hematocrit 39.4 % (40.0-54.0); Hemoglobin 12.9 g/dL (14.0-18.0); Mean Corpuscular HGB Conc 32.7 g/dL (32-36); Mean Corpuscular Hemoglobin 27.9 pg (27.0-31.0); Mean Corpuscular Volume 85.3 fL (78.0-102.0); Mean Platelet Volume 9.8 fl (8.7-11.0); Platelet Count Result 231 K/mm3 (150-420); Red Blood Count 4.62 M/mm3 (4.70-6.10); Red Cell Distribution Width 12.7 % (11.6-14.4); White Blood Count 5.8 K/mm3 (4.8-10.8)
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
[2024-07-01 11:36] LABS: Alanine Aminotransferase 525 U/L (16-63); Albumin Level 3.6 g/dL (3.4-5.0); Alkaline Phosphatase 341 U/L (46-116); Anion Gap 10 mmol/L (4-12); Aspartate Amino Transferase 451 U/L (15-37); Bilirubin,Total 0.4 mg/dL (0.00-1.00); Blood Urea Nitrogen 2 mg/dL (7-18); Calcium 8.7 mg/dL (8.5-10.1); Carbon Dioxide 27 mmol/L (21-32); Chloride 106 mmol/L (98-108); Estimated CRCL calculation 115 ml/min; Estimated Glomerular Filt Rate > 60; Glucose 108 mg/dL (70-99); Osmolality Calculated 293 mOsm/kg (285-295); Potassium 3.9 mmol/L (3.5-5.1); Sodium 143 mmol/L (136-145); Total Protein 6.8 g/dL (6.4-8.2)
[2024-07-01 16:00] VITALS: BP 140/91; PULSE 93; RESP 16; TEMP 36.3; O2SAT 98
--- NOTE | 2024-07-01 17:06 | PC.NURSE ---
electronic funds transfer coordinator called informing she did not inform Zaida at [facility] the patient was Covid Positive. Attempted to call Zaida, but Zaida now at Nurses station. Informed Zaida patient was Covid Positive and apologized informed rn progressive care was sorry as well. Zaida is understanding howeve unable to take patient until he is covid negative.
--- NOTE | 2024-07-01 17:17 | PC.NURSE ---
Spoke with patient informing he could not longer go to [facility] because he had covid. Asked him if he had a place we could get him too and he informs NO . Informed he needed to call or get us numbers to call to get him to a safe placel. Educated him on he is medically stable and unfortunately since [facility] isnt able to take him he has no reason to be admitted to the hospital. He informs. I will try
--- NOTE | 2024-07-01 17:23 | PC.NURSE ---
Spoke with BMX RIDER, who informs she will call tree care foreman and see what can be done.
--- NOTE | 2024-07-01 17:29 | PC.NURSE ---
VOTING MACHINE REPAIRER called her bridges supervisor who said go ahead with discharge.
--- NOTE | 2024-07-01 17:38 | PC.NURSE ---
at [id number] called [facility] asking if they could do a courtesy and take patient to his destination. Dispatch informs yes only anywhere [place] the city limits. She informs she would have to ask the specific vice squad police officer if they minded the patient had covid but at this time does not see a problem.. Call her with information.
--- NOTE | 2024-07-01 17:41 | PC.NURSE ---
Patient refuses police excort and prefers to walk.
--- NOTE | 2024-07-01 17:44 | PC.NURSE ---
pt declines police escort to anywhere, iv removed intact, 3 bottles of home meds returned, pt has coat and belongings in bag, walked with nurse to front door of hospital
--- NOTE | 2024-07-05 09:02 | PC.NURSE ---
Discharge call back attempted, no answer
== END 2024-07-01 17:44 | disposition home or self-care (01) ==
LOC: CHSED 17:46 → CHS2ND 18:32
PROVIDERS: Nurse Practitioner Family; Admitting Provider Internal Medicine; Emergency Provider Internal Medicine Critical Care Medicine; Visit Provider Internal Medicine
DX: U07.1 COVID-19 (principal); N13.30 Unspecified hydronephrosis; E87.6 Hypokalemia; R74.01 Elevation of levels of liver transaminase levels; K76.0 Fatty (change of) liver, not elsewhere classified; R79.89 Other specified abnormal findings of blood chemistry; N32.89 Other specified disorders of bladder; R45.89 Other symptoms and signs involving emotional state; E78.00 Pure hypercholesterolemia, unspecified; F17.200 Nicotine dependence, unspecified, uncomplicated; G40.909 Epilepsy, unspecified, not intractable, without status epilepticus; F31.9 Bipolar disorder, unspecified; F20.9 Schizophrenia, unspecified; Z79.899 Other long term (current) drug therapy; Z59.00 Homelessness unspecified; Z63.8 Other specified problems related to primary support group
CPT/HCPCS: 36415; 71045; 74177; 80053; 80074; 80143; 80179; 80307; 81001; 82077; 82140; 83735; 83880; 84443; 84484; 85025; 85027; 85610; 87637; 93005; 96365; 96366; 96375; 99285; A9270; J0696; J1644; J3480; J7040; Q9967